=== PATIENT | male | born 1960 | race Caucasian/White ===

== ENCOUNTER 2020-03-10 17:26 | Outpatient (CLI) | payer MEDICARE, BC, SELFPAY ==
[2020-03-10 18:22] LABS: Hemoglobin 13.3 g/dL (14.0-18.0); Mean Corpuscular HGB Conc 35.9 g/dl (32-36); Mean Corpuscular Hemoglobin 30.7 pg (26-34); Mean Corpuscular Volume 85.5 fl (80-100); Mean Platelet Volume 9.9 fl (7.4-10.4); Platelet Count Result 117 k/mm3 (150-375); Red Blood Count 4.33 M/mm3 (4.6-6.20); Red Cell Distribution Width 12.6 % (11.5-14.5)
[2020-03-10 18:36] LABS: Alanine Aminotransferase 22 U/L (4-50); Albumin Level 4.2 g/dL (3.5-5.1); Alkaline Phosphatase 99 U/L (38-126); Aspartate Amino Transferase 27 U/L (17-59); Bilirubin,Total 0.5 mg/dL (0.2-1.3); Blood Urea Nitrogen 8 mg/dL (9-20); Calcium 8.6 mg/dL (8.4-10.2); Carbon Dioxide 33 mmol/L (22-30); Chloride 90 mmol/L (98-107); Cholesterol 164 mg/dL (0-200); Estimated Glomerular Filt Rate > 60; Glucose 322 mg/dL (75-110); HDL Direct 59 mg/dL; Phenytoin Dilantin 13 ug/mL (10-20); Potassium 5.2 mmol/L (3.4-5.0); Sodium 125 mmol/L (137-145); Triglycerides 85 mg/dL (<150)
[2020-03-10 18:39] LABS: Hemoglobin A1C 8.8 % (<5.7)
[2020-03-10 18:44] LABS: LDL Cholesterol Direct 79 mg/dL
[2020-03-10 19:24] LABS: Prostate Specific Antigen 0.8 ng/mL (< OR = 4.0)
== END 2020-03-10 17:27 | disposition home or self-care (01) ==
PROVIDERS: PCP Family Medicine; Visit Provider Family Medicine
DX: D64.9 Anemia, unspecified (principal); Z12.5 Encounter for screening for malignant neoplasm of prostate; G40.909 Epilepsy, unspecified, not intractable, without status epilepticus; E11.65 Type 2 diabetes mellitus with hyperglycemia
CPT/HCPCS: 36415; 80053; 80061; 80184; 80185; 83036; 84153; 85027; G0103

== ENCOUNTER 2020-04-20 11:50 | Outpatient (CLI) | payer MEDICARE, BC, SELFPAY ==
--- NOTE | ~2020-04-20 | MMUS_ITS ---
EXAMINATION: MM diagnostic mammo BI, US breast RT limited HISTORY: Palpable right breast lump TECHNIQUE: Additional 3-D tomosynthesis images of the right breast were performed and synthetic 2-D i mages were generated. CAD analysis was submitted and interpreted. High resolution right breast ultras ound was performed. COMPARISON: None BREAST PARENCHYMAL COMPOSITION: The breasts are heterogenously dense, which may obscure small masses FINDINGS: MAMMOGRAPHIC FINDINGS: There is bilateral symmetric gynecomastia. No suspicious masses, calcifications or architectural dist ortion to suggest malignancy. ULTRASOUND: Right breast ultrasound: There is normal heterogeneous echotexture in the subareolar location of the right breast, consistent with breast bud. IMPRESSION: 1. Bilateral symmetric gynecomastia. No evidence for malignancy. Recommend follow-up clinical managem ent for gynecomastia. BI-RADS CATEGORY 2 - BENIGN FINDINGS Reviewed, dictated and finalized at location A. IMPRESSION: 1. Bilateral symmetric gynecomastia. No evidence for malignancy. Recommend foll ow-up clinical management for gynecomastia. BI-RADS CATEGORY 2 - BENIGN FINDINGS
== END 2020-04-20 11:51 | disposition home or self-care (01) ==
LOC: ANHIMG 11:55
PROVIDERS: PCP Family Medicine; Visit Provider Family Medicine
DX: N63.10 Unspecified lump in the right breast, unspecified quadrant (principal); R92.2 Inconclusive mammogram
CPT/HCPCS: 76642; 77066

== ENCOUNTER 2020-04-27 14:42 | Outpatient (CLI) | payer MEDICARE, BC, SELFPAY ==
--- NOTE | ~2020-04-27 | CT_ITS ---
EXAMINATION: CT abdomen pelvis wo con DATE: 04/27/2020 15:11 INDICATION: Left inguinal lymphadenopathy TECHNIQUE: Computed tomography (CT) of the abdomen and pelvis was performed without intravenous contr ast. Automated exposure control and iterative reconstruction technique were employed. Exam dose: 198 .29 mGy-cm total exam DLP. COMPARISON: None. FINDINGS: The lung bases are clear. Normal heart size. No pericardial or pleural effusion. There are numerous faceted calcified gallstones. No gallbladder wall thickening or pericholecystic fluid or fat stranding. No bile duct or pancreatic duct dilatation. No hepatic, splenic, pancreatic, adrenal or renal solid space-occupying mass lesion is evident on thi s limited noncontrast examination. Exophytic 12 mm right renal cyst. 11 mm hyperdense exophytic left renal cyst. No urinary tract calculus or hydroureteronephrosis. There is abdominal aortic calcification; no aneurysm. No intraperitoneal or retroperitoneal or pelvic mass lesion or adenopathy or ascites is evident. There is a prominent amount of feces in the colon. No bowel obstruction or bowel wall thickening, pn eumatosis or intraperitoneal free air. Prostate enlargement. Transitional lumbosacral vertebra. No suspicious osteolytic or osteoblastic lesions are noted. IMPRESSION: No lymphadenopathy noted Prominent amount of feces in the colon, consistent with constipation; no bowel obstruction is evident Numerous faceted calcified gallstones Reviewed, dictated and finalized at Location A. Reviewed, dictated and finalized at location A.
== END 2020-04-27 14:43 | disposition home or self-care (01) ==
PROVIDERS: PCP Family Medicine; Visit Provider Family Medicine
DX: R59.0 Localized enlarged lymph nodes (principal)
CPT/HCPCS: 74176

== ENCOUNTER 2020-08-11 15:37 | Outpatient (CLI) | payer MEDICARE, BC, SELFPAY ==
--- NOTE | ~2020-08-11 | US_ITS ---
EXAMINATION: US venous doppler LE RT DATE: 08/11/2020 16:13 INDICATION: Right lower limb pain TECHNIQUE: Grayscale ultrasound images without and with compression and Doppler ultrasound images of the right lower extremity veins were obtained. COMPARISON: None. FINDINGS: The visualized portions of right common femoral vein, profunda (deep) femoral vein, femoral vein, pop liteal vein, peroneal trunk, posterior tibial veins, peroneal veins, gastrocnemius vein and greater s aphenous vein outflow are patent. IMPRESSION: 1. No deep venous thrombosis in the right lower limb. Reviewed, dictated and finalized at location H. E SPECIALIST
== END 2020-08-11 15:38 | disposition home or self-care (01) ==
PROVIDERS: PCP Family Medicine; Visit Provider Family Medicine
DX: M79.661 Pain in right lower leg (principal)
CPT/HCPCS: 93971

== ENCOUNTER 2020-09-08 15:18 | Outpatient (CLI) | payer MEDICARE, BC, SELFPAY ==
[2020-09-08 16:54] LABS: Hemoglobin A1C 8.1 % (<5.7)
[2020-09-08 17:04] LABS: Creatinine Urine 36.7 mg/dL
[2020-09-08 17:11] LABS: LDL Cholesterol Direct 79 mg/dL
[2020-09-08 17:25] LABS: Microalbumin Urine Random < 6.0 mg/L (0-16.7)
[2020-09-08 17:32] LABS: Alanine Aminotransferase 13 U/L (4-50); Anion Gap 7 mmol/L (8-16); Blood Urea Nitrogen 7 mg/dL (9-20); Calcium 8.8 mg/dL (8.4-10.2); Carbon Dioxide 34 mmol/L (22-30); Chloride 89 mmol/L (98-107); Cholesterol 163 mg/dL (0-200); Estimated Glomerular Filt Rate > 60; Glucose 221 mg/dL (75-110); HDL Direct 57 mg/dL; Phenytoin Dilantin 23 ug/mL (10-20); Potassium 4.4 mmol/L (3.4-5.0); Sodium 130 mmol/L (137-145); Triglycerides 105 mg/dL (<150)
== END 2020-09-08 15:19 | disposition home or self-care (01) ==
PROVIDERS: PCP Family Medicine; Visit Provider Family Medicine
DX: E11.65 Type 2 diabetes mellitus with hyperglycemia (principal); R56.9 Unspecified convulsions
CPT/HCPCS: 36415; 80048; 80061; 80184; 80185; 82043; 83036; 84460

== ENCOUNTER 2021-05-04 17:08 | Outpatient (CLI) | payer MEDICARE, SELFPAY ==
[2021-05-04 18:01] LABS: Hemoglobin A1C 7.3 % (<5.7)
[2021-05-04 18:02] LABS: Alanine Aminotransferase 21 U/L (4-50); Albumin Level 4.4 g/dL (3.5-5.1); Alkaline Phosphatase 110 U/L (38-126); Anion Gap 6 mmol/L (8-16); Aspartate Amino Transferase 38 U/L (17-59); Bilirubin,Total 0.8 mg/dL (0.2-1.3); Blood Urea Nitrogen 7 mg/dL (9-20); Calcium 8.9 mg/dL (8.4-10.2); Carbon Dioxide 30 mmol/L (22-30); Chloride 93 mmol/L (98-107); Cholesterol 151 mg/dL (0-200); Estimated Glomerular Filt Rate > 60; Glucose 136 mg/dL (65-110); HDL Direct 59 mg/dL; Phenytoin Dilantin 12 ug/mL (10-20); Potassium 4.6 mmol/L (3.4-5.0); Sodium 129 mmol/L (137-145); Triglycerides 96 mg/dL (<150)
[2021-05-04 18:02] LABS: Creatinine Urine 45.6 mg/dL; Total Protein Urine Random 12 mg/dL; Ur Ttl Prot Creatinine Ratio 0.26 mg/mg (0-0.20)
[2021-05-04 18:12] LABS: LDL Cholesterol Direct 62 mg/dL
[2021-05-04 18:44] LABS: Vitamin D 25 Hydroxy 57.9 ng/mL
[2021-05-05 12:28] LABS: Microalbumin Urine Random < 6.0 mg/L (0-16.7)
[2021-05-05 12:29] LABS: MALB Creatinine Ratio < 13.2 mg/g (0-30)
== END 2021-05-04 17:09 | disposition home or self-care (01) ==
PROVIDERS: PCP Family Medicine; Visit Provider Family Medicine
DX: E10.42 Type 1 diabetes mellitus with diabetic polyneuropathy (principal); E10.65 Type 1 diabetes mellitus with hyperglycemia; R56.1 Post traumatic seizures
CPT/HCPCS: 36415; 80053; 80061; 80184; 80185; 82043; 82306; 82570; 82607; 83036; 84156

== ENCOUNTER 2022-03-16 14:53 | Outpatient (CLI) | payer MEDICARE, SELFPAY ==
[2022-03-16 15:33] LABS: Basophils Percent Auto 0.7 % (0.2-1.2); Eosinophils Percent Auto 0.7 % (0-4.4); Hematocrit 32.2 % (42.0-52.0); Hemoglobin 11.8 g/dL (14.0-18.0); Immature Granulocyte Absolute 0.01 K/mm3 (0.00-0.031); Immature Granulocyte Percent A 0.3 % (0-0.5); Lymphocytes Absolute Auto 0.68 K/mm3 (0.9-3.2); Lymphocytes Percent Auto 22.4 % (18.3-44.2); Mean Corpuscular HGB Conc 36.6 g/dl (32-36); Mean Corpuscular Hemoglobin 32.4 pg (26-34); Mean Corpuscular Volume 88.5 fl (80-100); Mean Platelet Volume 9.2 fl (7.4-10.4); Monocytes Absolute Auto 0.3 K/mm3 (0.1-0.6); Monocytes Percent Auto 10.2 % (2.6-8.5); Neutrophils Percent Auto 65.7 % (45.5-73.1); Platelet Count Result 134 k/mm3 (150-375); Red Blood Count 3.64 M/mm3 (4.6-6.20); Red Cell Distribution Width 13.7 % (11.5-14.5)
[2022-03-16 15:44] LABS: Alanine Aminotransferase 19 U/L (6-50); Albumin Level 3.8 g/dL (3.5-5.1); Alkaline Phosphatase 79 U/L (38-126); Anion Gap 5 mmol/L (8-16); Aspartate Amino Transferase 30 U/L (17-59); Bilirubin,Total 0.4 mg/dL (0.2-1.3); Blood Urea Nitrogen 11 mg/dL (9-20); Carbon Dioxide 30 mmol/L (22-30); Chloride 96 mmol/L (98-107); Cholesterol 156 mg/dL (0-200); Estimated Glomerular Filt Rate > 60; Glucose 193 mg/dL (65-110); HDL Direct 62 mg/dL; Potassium 4.7 mmol/L (3.4-5.0); Sodium 131 mmol/L (137-145); Triglycerides 82 mg/dL (<150)
[2022-03-16 15:46] LABS: Alanine Aminotransferase 18 U/L (6-50); Albumin Level 3.9 g/dL (3.5-5.1); Alkaline Phosphatase 79 U/L (38-126); Anion Gap 5 mmol/L (8-16); Aspartate Amino Transferase 30 U/L (17-59); Bilirubin,Total 0.4 mg/dL (0.2-1.3); Blood Urea Nitrogen 10 mg/dL (9-20); Calcium 8.1 mg/dL (8.4-10.2); Carbon Dioxide 29 mmol/L (22-30); Chloride 97 mmol/L (98-107); Estimated Glomerular Filt Rate > 60; Glucose 192 mg/dL (65-110); Magnesium 1.8 mg/dL (1.6-2.3); Potassium 4.7 mmol/L (3.4-5.0); Sodium 131 mmol/L (137-145)
[2022-03-16 15:55] LABS: LDL Cholesterol Direct 60 mg/dL
[2022-03-16 16:29] LABS: Vitamin D 25 Hydroxy 49.4 ng/mL
== END 2022-03-16 14:54 | disposition home or self-care (01) ==
PROVIDERS: PCP Family Medicine
DX: R79.89 Other specified abnormal findings of blood chemistry (principal); E55.9 Vitamin D deficiency, unspecified; E87.1 Hypo-osmolality and hyponatremia; I10 Essential (primary) hypertension; E78.00 Pure hypercholesterolemia, unspecified
CPT/HCPCS: 36415; 80048; 80053; 80061; 80076; 82306; 83735; 85025

== ENCOUNTER 2022-06-20 14:54 | Outpatient (CLI) | payer MEDICARE, SELFPAY ==
--- NOTE | ~2022-06-20 | XR_ITS ---
EXAMINATION: XR chest 2V 06/20/2022 15:57 INDICATION: Cough PROCEDURE: 2 view chest COMPARISON: No prior studies for comparison. FINDINGS: The lungs are clear. The cardiomediastinal silhouette is within normal limits. There are no pleural effusions. There is no pneumothorax suspected. IMPRESSION: 1: NO ACUTE CARDIOPULMONARY DISEASE. Reviewed, dictated and finalized at location A.
--- NOTE | ~2022-06-20 | XR_ITS ---
XR shoulder RT min 2V 06/20/2022 15:57 Indication: Right shoulder pain. Arthritis. Procedure: 4 views right shoulder Comparison: No prior studies Findings: There is curvilinear ossification superior to the humeral head, likely calcific tendinopath y. No acute fracture or traumatic malalignment. There is anatomic alignment. No erosive changes. No f oreign bodies. Impression: 1: No acute abnormality of the right shoulder. 2: Probable calcific tendinopathy. Reviewed, dictated and finalized at location A. Impression: 1: No acute abnormality of the right shoulder. 2: Probable calcific tendinopathy.
[2022-06-20 15:46] LABS: Basophils Percent Auto 0.4 % (0.2-1.2); Hemoglobin 13.2 g/dL (14.0-18.0); Immature Granulocyte Absolute 0.01 K/mm3 (0.00-0.031); Immature Granulocyte Percent A 0.4 % (0-0.5); Lymphocytes Absolute Auto 0.69 K/mm3 (0.9-3.2); Lymphocytes Percent Auto 27.1 % (18.3-44.2); Mean Corpuscular HGB Conc 34.7 g/dl (32-36); Mean Corpuscular Hemoglobin 31.2 pg (26-34); Mean Corpuscular Volume 89.8 fl (80-100); Mean Platelet Volume 9.6 fl (7.4-10.4); Monocytes Absolute Auto 0.3 K/mm3 (0.1-0.6); Monocytes Percent Auto 10.2 % (2.6-8.5); Neutrophils Absolute Auto 1.6 K/mm3 (1.3-6.7); Neutrophils Percent Auto 61.9 % (45.5-73.1); Platelet Count Result 111 k/mm3 (150-375); Red Blood Count 4.23 M/mm3 (4.6-6.20); Red Cell Distribution Width 13.7 % (11.5-14.5); White Blood Count 2.6 K/mm3 (4.5-10.0)
[2022-06-20 16:04] LABS: Creatinine Urine 27.9 mg/dL; Total Protein Urine Random 9 mg/dL; Ur Ttl Prot Creatinine Ratio 0.32 mg/mg (0-0.20)
[2022-06-20 16:17] LABS: Alanine Aminotransferase 19 U/L (6-50); Albumin Level 4.7 g/dL (3.5-5.1); Alkaline Phosphatase 115 U/L (38-126); Anion Gap 7 mmol/L (8-16); Aspartate Amino Transferase 28 U/L (17-59); Bilirubin,Total 0.7 mg/dL (0.2-1.3); Blood Urea Nitrogen 13 mg/dL (9-20); Calcium 8.8 mg/dL (8.4-10.2); Carbon Dioxide 32 mmol/L (22-30); Chloride 94 mmol/L (98-107); Cholesterol 175 mg/dL (0-200); Estimated Glomerular Filt Rate > 60; Glucose 220 mg/dL (65-110); HDL Direct 80 mg/dL; Potassium 4.6 mmol/L (3.4-5.0); Sodium 133 mmol/L (137-145); Triglycerides 75 mg/dL (<150)
[2022-06-20 16:21] LABS: Anion Gap 7 mmol/L (8-16); Blood Urea Nitrogen 12 mg/dL (9-20); Calcium 8.8 mg/dL (8.4-10.2); Carbon Dioxide 30 mmol/L (22-30); Chloride 94 mmol/L (98-107); Estimated Glomerular Filt Rate > 60; Glucose 218 mg/dL (65-110); Potassium 4.5 mmol/L (3.4-5.0); Sodium 131 mmol/L (137-145)
[2022-06-20 16:27] LABS: Hemoglobin A1C 7.4 % (<5.7)
[2022-06-20 16:28] LABS: LDL Cholesterol Direct 75 mg/dL
[2022-06-20 16:43] LABS: Vitamin D 25 Hydroxy 30.9 ng/mL
== END 2022-06-20 14:55 | disposition home or self-care (01) ==
PROVIDERS: PCP Family Medicine; Referring Provider Anesthesiology; Visit Provider Family Medicine
DX: M19.011 Primary osteoarthritis, right shoulder (principal); R05.9 Cough, unspecified; E87.1 Hypo-osmolality and hyponatremia; E10.42 Type 1 diabetes mellitus with diabetic polyneuropathy; E10.65 Type 1 diabetes mellitus with hyperglycemia; I10 Essential (primary) hypertension; E55.9 Vitamin D deficiency, unspecified; E78.00 Pure hypercholesterolemia, unspecified; I42.2 Other hypertrophic cardiomyopathy; R60.0 Localized edema; R94.31 Abnormal electrocardiogram [ECG] [EKG]
CPT/HCPCS: 36415; 71046; 73030; 80048; 80053; 80061; 82306; 82570; 83036; 84156; 85025

== ENCOUNTER 2022-08-01 13:02 | Outpatient (CLI) | payer MEDICARE, SELFPAY ==
--- NOTE | ~2022-08-01 | MMUS_ITS ---
EXAMINATION: MM diagnostic mammo unilat LT, US breast BI complete HISTORY: Palpable left breast lump TECHNIQUE: Additional 3-D tomosynthesis images of the left breast were performed and synthetic 2-D im ages were generated. Comparison right MLO view performed. CAD analysis was submitted and interpreted. High resolution complete bilateral breast ultrasound was performed. COMPARISON: 04/20/2020 BREAST PARENCHYMAL COMPOSITION: The breasts are heterogeneously dense, which may obscure small masses FINDINGS: MAMMOGRAPHIC FINDINGS: The breasts are stable. No new masses, calcifications or architectural distortion are identified. The re is bilateral symmetric gynecomastia. ULTRASOUND: Complete bilateral US of all 4 quadrants of the breasts and retroareolar region was reviewed. There i s bilateral symmetric heterogeneous hypoechoic soft tissue in the subareolar location of both breasts , consistent with breast buds. No discrete solid or cystic masses are identified to suggest malignanc y. IMPRESSION: 1. No evidence for malignancy in either breast. Benign findings. Bilateral symmetric gynecomastia. 2. Recommend follow-up clinical management for gynecomastia. BI-RADS CATEGORY 2 - BENIGN FINDINGS Reviewed, dictated and finalized at location A. L DRIVER IMPRESSION: 1. No evidence for malignancy in either breast. Benign findings. Bilateral symm etric gynecomastia. 2. Recommend follow-up clinical management for gynecomastia. BI-RADS CATEGORY 2 - BENIGN FINDINGS
== END 2022-08-01 13:03 | disposition home or self-care (01) ==
PROVIDERS: PCP Family Medicine; Visit Provider Family Medicine
DX: N63.0 Unspecified lump in unspecified breast (principal); N62 Hypertrophy of breast
CPT/HCPCS: 76641; 77065

== ENCOUNTER 2023-04-06 14:41 | Outpatient (CLI) | payer MEDICARE, SELFPAY ==
--- NOTE | ~2023-04-06 | XR_ITS ---
EXAMINATION: XR_RIBSBI_CR Exam Date/Time: 04/06/2023 15:20 CDT HISTORY: LEFT LBP AFTER FALL ON TO BATHTUB, LEFT POST RIB PAIN Comparison: None available. RESULT: Lines, tubes, and devices: Partially visualized cervical fusion hardware. Lungs and pleura: Calcified left lower lung granuloma, otherwise clear. Cardiothymic silhouette: Arch calcification. Calcified hilar node. Other: No acute osseous or upper abdominal finding. Mild degenerative changes in the bilateral shoul ders. IMPRESSION: No acute cardiopulmonary process. No acute osseous finding in the ribs. Reviewed, dictated and finalized at location K.
--- NOTE | ~2023-04-06 | XR_ITS ---
XR lumbar spine 2-3V DATE: 04/06/2023 15:30 INDICATION: Left low back pain after fall onto bathtub. Radiculopathy. TECHNIQUE: AP, lateral, coned lateral lumbosacral views COMPARISON: 09/03/2009 lumbar spine FINDINGS: There is osteopenia. There is mild dextroscoliosis of the lumbar spine. Included lower thoracic and lumbar pedicles are intact. Transitional first sacral vertebra. Lumbar and lumbosacral spaces are well preserved. There is slight degenerative spurring of the lumbar spine. No fracture, bone destruction. No spondylolisthesis. The sacroiliac joints are intact. Multiple faceted calcified gallstones are noted. There is abdominal aortic calcification. IMPRESSION: Osteopenia Mild dextro scoliosis Transitional first sacral vertebra Cholelithiasis Reviewed, dictated and finalized at location L.
[2023-04-06 15:34] LABS: Basophils Percent Auto 0.7 % (0.2-1.2); Eosinophils Percent Auto 0.4 % (0-4.4); Hematocrit 32.8 % (42.0-52.0); Hemoglobin 11.6 g/dL (14.0-18.0); Lymphocytes Absolute Auto 0.73 K/mm3 (0.9-3.2); Lymphocytes Percent Auto 27.2 % (18.3-44.2); Mean Corpuscular HGB Conc 35.4 g/dl (32-36); Mean Corpuscular Volume 90.4 fl (80-100); Mean Platelet Volume 9.3 fl (7.4-10.4); Monocytes Absolute Auto 0.4 K/mm3 (0.1-0.6); Monocytes Percent Auto 14.6 % (2.6-8.5); Neutrophils Absolute Auto 1.5 K/mm3 (1.3-6.7); Neutrophils Percent Auto 57.1 % (45.5-73.1); Platelet Count Result 136 k/mm3 (150-375); Red Blood Count 3.63 M/mm3 (4.6-6.20); Red Cell Distribution Width 12.6 % (11.5-14.5); White Blood Count 2.7 K/mm3 (4.5-10.0)
[2023-04-06 15:42] LABS: Alanine Aminotransferase 25 U/L (6-50); Albumin Level 4.2 g/dL (3.5-5.1); Alkaline Phosphatase 94 U/L (38-126); Anion Gap 3 mmol/L (8-16); Aspartate Amino Transferase 42 U/L (17-59); Bilirubin,Total 0.6 mg/dL (0.2-1.3); Blood Urea Nitrogen 11 mg/dL (9-20); Calcium 8.5 mg/dL (8.4-10.2); Carbon Dioxide 36 mmol/L (22-30); Chloride 90 mmol/L (98-107); Cholesterol 161 mg/dL (0-200); Estimated Glomerular Filt Rate > 60; Glucose 173 mg/dL (65-110); HDL Direct 66 mg/dL; Magnesium 1.9 mg/dL (1.6-2.3); Potassium 4.5 mmol/L (3.4-5.0); Sodium 129 mmol/L (137-145); Triglycerides 85 mg/dL (<150)
[2023-04-06 15:53] LABS: LDL Cholesterol Direct 65 mg/dL
[2023-04-06 17:14] LABS: Vitamin D 25 Hydroxy 69.4 ng/mL
[2023-04-06 17:35] LABS: Creatinine Urine 68.5 mg/dL
[2023-04-06 18:59] LABS: MALB Creatinine Ratio < 8.8 mg/g (0-30); Microalbumin Urine Random < 6.0 mg/L (0-16.7)
[2023-04-10 14:10] LABS: Testosterone Free 28.4 pg/mL (35.0-155.0); Testosterone Total 430 ng/dL (250-1100)
== END 2023-04-06 14:42 | disposition home or self-care (01) ==
PROVIDERS: PCP Family Medicine; Referring Provider Anesthesiology; Visit Provider Family Medicine
DX: I42.2 Other hypertrophic cardiomyopathy (principal); I10 Essential (primary) hypertension; G62.9 Polyneuropathy, unspecified; E55.9 Vitamin D deficiency, unspecified; R79.89 Other specified abnormal findings of blood chemistry; E78.2 Mixed hyperlipidemia; Z13.220 Encounter for screening for lipoid disorders; E87.1 Hypo-osmolality and hyponatremia; M62.50 Muscle wasting and atrophy, not elsewhere classified, unspecified site; N52.9 Male erectile dysfunction, unspecified; E10.9 Type 1 diabetes mellitus without complications; R07.9 Chest pain, unspecified; M54.17 Radiculopathy, lumbosacral region; K80.20 Calculus of gallbladder without cholecystitis without obstruction; M85.88 Other specified disorders of bone density and structure, other site
CPT/HCPCS: 36415; 71110; 72100; 80048; 80061; 80076; 82043; 82306; 82553; 82607; 83735; 84402; 84403; 84443; 85025

== ENCOUNTER 2024-04-01 16:32 | Outpatient (CLI) | payer MEDICARE, SELFPAY ==
[2024-04-01 18:04] LABS: Hematocrit 34.4 % (42.0-52.0); Hemoglobin 12.5 g/dL (14.0-18.0); Mean Corpuscular HGB Conc 36.3 g/dl (32-36); Mean Corpuscular Hemoglobin 31.3 pg (26-34); Mean Corpuscular Volume 86.2 fl (80-100); Mean Platelet Volume 9.5 fl (7.4-10.4); Platelet Count Result 138 k/mm3 (150-375); Red Blood Count 3.99 M/mm3 (4.6-6.20); Red Cell Distribution Width 13.3 % (11.5-14.5); White Blood Count 4.3 K/mm3 (4.5-10.0)
[2024-04-01 18:13] LABS: Creatinine Urine 34.3 mg/dL
[2024-04-01 18:21] LABS: Alanine Aminotransferase 20 U/L (6-50); Albumin Level 4.3 g/dL (3.5-5.1); Alkaline Phosphatase 102 U/L (38-126); Anion Gap 11 mmol/L (4-12); Aspartate Amino Transferase 34 U/L (17-59); Bilirubin,Total 0.7 mg/dL (0.2-1.3); Blood Urea Nitrogen 10 mg/dL (9-20); Calcium 8.7 mg/dL (8.4-10.2); Carbon Dioxide 29 mmol/L (22-30); Chloride 89 mmol/L (98-107); Cholesterol 126 mg/dL (0-200); Estimated Glomerular Filt Rate > 60; Glucose 102 mg/dL (65-110); HDL Direct 58 mg/dL; Magnesium 1.7 mg/dL (1.6-2.3); Phenytoin Dilantin 9 ug/mL (10-20); Potassium 4.5 mmol/L (3.4-5.0); Sodium 129 mmol/L (137-145); Triglycerides 79 mg/dL (<150)
[2024-04-01 18:24] LABS: MALB Creatinine Ratio < 17.5 mg/g (0-30); Microalbumin Urine Random < 6.0 mg/L (0-16.7)
[2024-04-01 18:29] LABS: LDL Cholesterol Direct 58 mg/dL
[2024-04-02 04:06] LABS: Prostate Specific Antigen 1.1 ng/mL (< OR = 4.0)
== END 2024-04-01 16:33 | disposition home or self-care (01) ==
LOC: ANHLAB 16:40
PROVIDERS: PCP Family Medicine; Visit Provider Family Medicine
DX: Z12.5 Encounter for screening for malignant neoplasm of prostate (principal); I10 Essential (primary) hypertension; E10.9 Type 1 diabetes mellitus without complications; E87.1 Hypo-osmolality and hyponatremia; E78.2 Mixed hyperlipidemia; G62.9 Polyneuropathy, unspecified; E55.9 Vitamin D deficiency, unspecified; R79.89 Other specified abnormal findings of blood chemistry; R56.1 Post traumatic seizures; R25.2 Cramp and spasm; Z13.220 Encounter for screening for lipoid disorders
CPT/HCPCS: 36415; 80048; 80053; 80061; 80076; 80184; 80185; 82043; 82306; 82607; 83735; 84153; 85027; G0103

== ENCOUNTER 2024-04-01 16:42 | Outpatient (CLI) | payer MEDICARE, SELFPAY ==
[2024-04-01 19:04] LABS: Alanine Aminotransferase 21 U/L (6-50); Albumin Level 4.3 g/dL (3.5-5.1); Alkaline Phosphatase 101 U/L (38-126); Anion Gap 10 mmol/L (4-12); Aspartate Amino Transferase 35 U/L (17-59); Bilirubin,Total 0.7 mg/dL (0.2-1.3); Blood Urea Nitrogen 10 mg/dL (9-20); Calcium 8.7 mg/dL (8.4-10.2); Carbon Dioxide 27 mmol/L (22-30); Chloride 90 mmol/L (98-107); Estimated Glomerular Filt Rate > 60; Glucose 102 mg/dL (65-110); Potassium 4.6 mmol/L (3.4-5.0); Sodium 127 mmol/L (137-145)
== END 2024-04-01 16:43 | disposition home or self-care (01) ==
PROVIDERS: PCP Family Medicine
DX: I35.1 Nonrheumatic aortic (valve) insufficiency (principal); I10 Essential (primary) hypertension; D61.818 Other pancytopenia; E78.00 Pure hypercholesterolemia, unspecified; I42.2 Other hypertrophic cardiomyopathy; R60.0 Localized edema; R94.31 Abnormal electrocardiogram [ECG] [EKG]; Z82.49 Family history of ischemic heart disease and other diseases of the circulatory system
CPT/HCPCS: 36415; 80053

== ENCOUNTER 2024-08-23 14:40 | Outpatient (CLI) | payer MEDICARE, SELFPAY ==
--- NOTE | ~2024-08-23 | XR_ITS ---
XR finger 1st RT min 2V DATE: 08/23/2024 15:10 INDICATION: Effusion TECHNIQUE: 3 views of right first digit COMPARISON: None FINDINGS: No fracture or dislocation, periosteal reaction or bone destruction. Joint spaces are prese rved. No erosive changes. IMPRESSION: No significant abnormality Reviewed, dictated and finalized at location A. ER ASSEMBLER IMPRESSION: No significant abnormality
[2024-08-23 15:43] LABS: Basophils Percent Auto 0.3 % (0.2-1.2); Hematocrit 34.1 % (42.0-52.0); Hemoglobin 11.8 g/dL (14.0-18.0); Immature Granulocyte Absolute 0.01 K/mm3 (0.00-0.031); Immature Granulocyte Percent A 0.3 % (0-0.5); Lymphocytes Absolute Auto 0.72 K/mm3 (0.9-3.2); Lymphocytes Percent Auto 24.1 % (18.3-44.2); Mean Corpuscular HGB Conc 34.6 g/dl (32-36); Mean Corpuscular Hemoglobin 31.1 pg (26-34); Mean Platelet Volume 9.6 fl (7.4-10.4); Monocytes Absolute Auto 0.3 K/mm3 (0.1-0.6); Monocytes Percent Auto 11.4 % (2.6-8.5); Neutrophils Absolute Auto 1.9 K/mm3 (1.3-6.7); Neutrophils Percent Auto 63.9 % (45.5-73.1); Platelet Count Result 129 k/mm3 (150-375); Red Blood Count 3.79 M/mm3 (4.6-6.20)
[2024-08-23 15:57] LABS: Anion Gap 0 mmol/L (4-12); Blood Urea Nitrogen 13 mg/dL (9-20); Calcium 8.5 mg/dL (8.4-10.2); Carbon Dioxide 35 mmol/L (22-30); Chloride 97 mmol/L (98-107); Estimated Glomerular Filt Rate > 60; Glucose 205 mg/dL (65-110); Potassium 4.9 mmol/L (3.4-5.0); Sodium 132 mmol/L (137-145); Uric Acid 5.5 mg/dL (3.5-8.5)
[2024-08-23 16:34] LABS: Erythrocyte Sedimentation Rate 16 mm/hr (0-20)
== END 2024-08-23 14:41 | disposition home or self-care (01) ==
PROVIDERS: PCP Family Medicine; Visit Provider Family Medicine
DX: L03.011 Cellulitis of right finger (principal); M25.40 Effusion, unspecified joint; M10.9 Gout, unspecified
CPT/HCPCS: 36415; 73140; 80048; 84550; 85025; 85652

== ENCOUNTER 2025-01-28 14:34 | Outpatient (CLI) | payer MEDICARE, SELFPAY ==
--- OUTSIDE RECORDS SUMMARY | 2025-01-28 14:48 | XMS_ITS | Patient Health Record ---
Author Organization [facility] Address [address] [facility] [place] [address] Care Team Providers Care Assessment Services Manager Name Role Phone GREG HUIZAR, EPHRAIM Primary Care Provider Misty trejo Sarwat Perez Unavailable [phone] ALLERGIES Allergen (clinical drug ingredient) Drug/Non Drug Allergy documented on EMR Reaction Allergy Type Onset Date Status Penicillin Unknown Drug Allergy Active RESULTS Component Value Reference Range Notes Airwoot Results (Not yet reviewed by provider) Interpretation: Performing Lab:[id number] [facility], [address] [address] [facility] [address] Diamond Kumari MD Notes/Report: 4-ANPP: Fentanyl Negative. Acetyl fentanyl: Fentanyl Negative. Acetyl norfenta nyl: Fentanyl Negative. Acryl fentanyl: Fentanyl Negative. Carfentanil: Fentany l Negative. Para-fluorofentanyl: Fentanyl Negative. Codeine Quantification negative 50 ng/mL Morphine Quantification positive-70804.532 50 ng/mL Hydrocodone Quantification negative 50 ng/mL Norhydrocodone Quantification negative 50 ng/mL Hydromorphone Quantification positive-61.592 50 ng/mL Oxycodone Quantification negative 50 ng/mL Noroxycodone Quantification negative 50 ng/mL Oxymorphone Quantification negative 50 ng/mL Buprenorphine Quantification negative 5 ng/mL Norbuprenorphine Quantification negative 20 ng/mL Fentanyl Quantification negative 1 ng/mL Norfentanyl Quantification negative 8 ng/mL Methadone Quantification negative 100 ng/mL EDDP (Methadone metabolite) Quantification negative 100 ng/mL Tramadol Quantification negative 100 ng/mL F-gcccdjjbl-krgeclkx Quantification negative 100 n g/mL S-Svqwjrfdq-Spkktvou Quantification negative 100 n g/mL Tapentadol Quantification negative 50 ng/mL Meperidine Quantification negative 50 ng/mL Normeperidine Quantification negative 50 ng/mL Alpha-Hydroxyalprazolam Quantification negative 20 ng/mL 4-Chris-Yjontrneek Quantification negative 20 ng/m L Lorazepam Quantification negative 40 ng/mL Nordiazepam Quantification negative 40 ng/mL Temazepam Quantification negative 50 ng/mL Oxazepam Quantification negative 40 ng/mL Amphetamine Quantification negative 100 ng/mL Methylphenidate Quantification negative 50 ng/mL Ritalinic Acid Quantification negative 50 ng/mL Citalopram/Escitalopram Quantification negative 25 ng/mL N-Desmethylcitalopram Quantification negative 25 n g/mL Hydroxybupropion Quantification negative 50 ng/mL Duloxetine Quantification negative 25 ng/mL Fluoxetine Quantification negative 25 ng/mL NorFluoxetine Quantification negative 25 ng/mL Paroxetine Quantification negative 25 ng/mL Sertraline Quantification negative 10 ng/mL Trazodone Quantification negative 10 ng/mL Venlafaxine Quantification negative 100 ng/mL Desmethylvenlafaxine Quantification negative 100 n g/mL Aripipazole Quantification negative 5 ng/mL [id number]-3373 Quantification negative 15 ng/mL Clozapine Quantification negative 25 ng/mL N-Desmethylclozapine Quantification negative 25 ng /mL Haloperidol Quantification negative 5 ng/mL Reduced Haloperidol Quantification negative 5 ng/m L Olanzapine Quantification negative 25 ng/mL Quetiapine Quantification negative 25 ng/mL Norquetiapine Quantification negative 25 ng/mL Risperidone Quantification negative 10 ng/mL Hydroxyrisperidone Quantification negative 25 ng/m L Gabapentin Quantification negative 1000 ng/mL Pregabalin Quantification positive-3243.925 400 ng/mL Lamotrigine Quantification negative 50 ng/mL Ketamine Quantification negative 50 ng/mL Norketamine Quantification negative 50 ng/mL Naltrexone Quantification negative 10 ng/mL Naltrexol Quantification negative 10 ng/mL Naloxone Quantification negative 20 ng/mL cZolpidem Quantification negative 10 ng/mL Carisoprodol Quantification negative 100 ng/mL Meprobamate Quantification negative 100 ng/mL Pentobarbital Quantification negative 200 ng/mL Phenobarbital Quantification positive-90843.221 200 ng /mL Secobarbital Quantification negative 200 ng/mL Butalbital Quantification negative 200 ng/mL Amitriptyline Quantification negative 50 ng/mL Nortriptyline Quantification negative 50 ng/mL Imipramine Quantification negative 50 ng/mL Desipramine Quantification negative 50 ng/mL Cyclobenzaprine Quantification negative 50 ng/mL Dextromethorphan negative 50 ng/mL Levorphanol / Dextrorphan Quantification negative 50 ng/mL Phentermine Quantification negative 50 ng/mL Methamphetamine Quantification negative 100 ng/mL Cocaine metabolite Quantification negative 50 ng/m L cTHC (Marijuana metabolite) Quantification positive-> 1000 15 ng/mL MDMA Quantification negative 100 ng/mL 6-DM (Heroin metabolite) Quantification negative 10 ng/mL Phencyclidine Quantification negative 10 ng/mL 4-ANPP Quantification Fen Neg 2 ng/mL Acetyl fentanyl Quantification Fen Neg 2 ng/mL Acetyl norfentanyl Quantification Fen Neg 5 ng/mL Acryl fentanyl Quantification Fen Neg 1 ng/mL Carfentanil Quantification Fen Neg 2 ng/mL Para-fluorofentanyl Quantification Fen Neg 1 ng/m L 2-methyl AP-237 Quantification negative 10 ng/mL Brorphine Quantification negative 15 ng/mL Metonitazene Quantification negative 5 ng/mL 8-aminoclonazolam Quantification negative 10 ng/mL Etizolam Quantification negative 10 ng/mL Alpha-hydroxyetizolam Quantification negative 10 n g/mL Flualprazolam Quantification negative 10 ng/mL Flubromazolam Quantification negative 10 ng/mL ZFX802 metabolite Quantification negative 10 ng/mL YPL202 metabolite Quantification negative 10 ng/mL RCS4 metabolite Quantification negative 10 ng/mL XLR11/UR144 metabolite negative 10 ng/mL 5F-ADB-M7 negative 10 ng/mL XV-ALHGHMDT-O2 negative 10 ng/mL JHGT-WJROIYJB-Z7 negative 10 ng/mL Eutylone Quantification negative 10 ng/mL Methylone Quantification negative 3 ng/mL Xylazine Quantification negative 10 ng/mL 4-hydroxy Xylazine Quantification negative 10 ng/m L Mitragynine (Kratom alkaloid ) Quantification negative 1 ng/mL 1-AU-Pyqgxvmvgij (Kratom alk aloid) Quantification negative 1 ng/mL ETHANOL negative 20 mg/dL mg/dL ETHYL GLUCURONIDE SCREEN negative 500 ng/mL Ethyl Glucuronide Quantification negative 500 ng/m L Ethyl Sulfate Quantification negative 500 ng/mL CREATININE (CHEMICAL) normal-93.1 >20 mg/dL mg/dL OXIDANT normal-0 <200 ug/mL ug/mL PH normal-6.2 4.5 - 9.5 SPECIFIC GRAVITY normal-1.020 1.003 - 1.035 [facility] (Not yet reviewed by provider) Interpretation: Performing Lab:[id number] [facility], [address] [facility] [address] Diamond Kumari MD Notes/Report: Para-fluorofentanyl: Fentanyl Negative. 4-ANPP: Fentanyl Negative. Acetyl fent anyl: Fentanyl Negative. Acetyl norfentanyl: Fentanyl Negative. Acryl fentanyl: Fentanyl Negative. Carfentanil: Fentanyl Negative. Codeine Quantification negative 50 ng/mL Morphine Quantification positive-51804.201 50 ng/mL Hydrocodone Quantification negative 50 ng/mL Norhydrocodone Quantification negative 50 ng/mL Hydromorphone Quantification negative 50 ng/mL Oxycodone Quantification negative 50 ng/mL Noroxycodone Quantification negative 50 ng/mL Oxymorphone Quantification negative 50 ng/mL Buprenorphine Quantification negative 5 ng/mL Norbuprenorphine Quantification negative 20 ng/mL Fentanyl Quantification negative 1 ng/mL Norfentanyl Quantification negative 8 ng/mL Methadone Quantification negative 100 ng/mL EDDP (Methadone metabolite) Quantification negative 100 ng/mL Tramadol Quantification negative 100 ng/mL N-tzhhzcamw-ndoxjzpw Quantification negative 100 n g/mL I-Nkinsnako-Alzrepew Quantification negative 100 n g/mL Tapentadol Quantification negative 50 ng/mL Meperidine Quantification negative 50 ng/mL Normeperidine Quantification negative 50 ng/mL Alpha-Hydroxyalprazolam Quantification negative 20 ng/mL 4-Jonjb-Kjzvhdinik Quantification negative 20 ng/m L Lorazepam Quantification negative 40 ng/mL Nordiazepam Quantification negative 40 ng/mL Temazepam Quantification negative 50 ng/mL Oxazepam Quantification negative 40 ng/mL Amphetamine Quantification negative 100 ng/mL Methylphenidate Quantification negative 50 ng/mL Ritalinic Acid Quantification negative 50 ng/mL Citalopram/Escitalopram Quantification negative 25 ng/mL N-Desmethylcitalopram Quantification negative 25 n g/mL Hydroxybupropion Quantification negative 50 ng/mL Duloxetine Quantification negative 25 ng/mL Fluoxetine Quantification negative 25 ng/mL NorFluoxetine Quantification negative 25 ng/mL Paroxetine Quantification negative 25 ng/mL Sertraline Quantification negative 10 ng/mL Trazodone Quantification negative 10 ng/mL Venlafaxine Quantification negative 100 ng/mL Desmethylvenlafaxine Quantification negative 100 n g/mL Aripipazole Quantification negative 5 ng/mL [id number]-3373 Quantification negative 15 ng/mL Clozapine Quantification negative 25 ng/mL N-Desmethylclozapine Quantification negative 25 ng /mL Haloperidol Quantification negative 5 ng/mL Reduced Haloperidol Quantification negative 5 ng/m L Olanzapine Quantification negative 25 ng/mL Quetiapine Quantification negative 25 ng/mL Norquetiapine Quantification negative 25 ng/mL Risperidone Quantification negative 10 ng/mL Hydroxyrisperidone Quantification negative 25 ng/m L Gabapentin Quantification negative 1000 ng/mL Pregabalin Quantification positive-04672.904 400 ng/mL Lamotrigine Quantification negative 50 ng/mL Ketamine Quantification negative 50 ng/mL Norketamine Quantification negative 50 ng/mL Naltrexone Quantification negative 10 ng/mL Naltrexol Quantification negative 10 ng/mL Naloxone Quantification negative 20 ng/mL cZolpidem Quantification negative 10 ng/mL Carisoprodol Quantification negative 100 ng/mL Meprobamate Quantification negative 100 ng/mL Pentobarbital Quantification negative 200 ng/mL Phenobarbital Quantification positive-31841.551 200 ng /mL Secobarbital Quantification negative 200 ng/mL Butalbital Quantification negative 200 ng/mL Amitriptyline Quantification negative 50 ng/mL Nortriptyline Quantification negative 50 ng/mL Imipramine Quantification negative 50 ng/mL Desipramine Quantification negative 50 ng/mL Cyclobenzaprine Quantification positive-67.434 50 ng/m L Dextromethorphan negative 50 ng/mL Levorphanol / Dextrorphan Quantification negative 50 ng/mL Phentermine Quantification negative 50 ng/mL Methamphetamine Quantification negative 100 ng/mL Cocaine metabolite Quantification negative 50 ng/m L cTHC (Marijuana metabolite) Quantification positive-23 5.879 15 ng/mL MDMA Quantification negative 100 ng/mL 6-DM (Heroin metabolite) Quantification negative 10 ng/mL Phencyclidine Quantification negative 10 ng/mL 4-ANPP Quantification Fen Neg 2 ng/mL Acetyl fentanyl Quantification Fen Neg 2 ng/mL Acetyl norfentanyl Quantification Fen Neg 5 ng/mL Acryl fentanyl Quantification Fen Neg 1 ng/mL Carfentanil Quantification Fen Neg 2 ng/mL Para-fluorofentanyl Quantification Fen Neg 1 ng/m L 2-methyl AP-237 Quantification negative 10 ng/mL Brorphine Quantification negative 15 ng/mL Metonitazene Quantification negative 5 ng/mL 8-aminoclonazolam Quantification negative 10 ng/mL Etizolam Quantification negative 10 ng/mL Alpha-hydroxyetizolam Quantification negative 10 n g/mL Flualprazolam Quantification negative 10 ng/mL Flubromazolam Quantification negative 10 ng/mL EIJ577 metabolite Quantification negative 10 ng/mL NBB423 metabolite Quantification negative 10 ng/mL RCS4 metabolite Quantification negative 10 ng/mL XLR11/UR144 metabolite negative 10 ng/mL 5F-ADB-M7 negative 10 ng/mL LS-NAVKTGRY-Z9 negative 10 ng/mL DRYX-KHCLRIDG-H8 negative 10 ng/mL Eutylone Quantification negative 10 ng/mL Methylone Quantification negative 3 ng/mL Xylazine Quantification negative 10 ng/mL 4-hydroxy Xylazine Quantification negative 10 ng/m L Mitragynine (Kratom alkaloid ) Quantification negative 1 ng/mL 0-IO-Jyqbmohauwd (Kratom alk aloid) Quantification negative 1 ng/mL ETHANOL negative 20 mg/dL mg/dL ETHYL GLUCURONIDE SCREEN negative 500 ng/mL Ethyl Glucuronide Quantification negative 500 ng/m L Ethyl Sulfate Quantification negative 500 ng/mL CREATININE normal-20.3 >20 mg/dL mg/dL OXIDANT normal-0 <200 ug/mL ug/mL PH normal-7.2 4.5 - 9.5 SPECIFIC GRAVITY normal-1.005 1.003 - 1.035 Airwoot Results (Not yet reviewed by provider) Interpretation: Performing Lab:[id number] [facility], [address] [address] [address] Diamond Kumari MD Notes/Report: Acetyl fentanyl: Fentanyl Negative. Acetyl norfentanyl: Fentanyl Negative. Acr yl fentanyl: Fentanyl Negative. Carfentanil: Fentanyl Negative. Para-fluorofent anyl: Fentanyl Negative. Codeine Quantification negative 50 ng/mL Morphine Quantification positive-25839.995 50 ng/mL Hydrocodone Quantification negative 50 ng/mL Norhydrocodone Quantification negative 50 ng/mL Hydromorphone Quantification positive-50.039 50 ng/mL Oxycodone Quantification negative 50 ng/mL Noroxycodone Quantification negative 50 ng/mL Oxymorphone Quantification negative 50 ng/mL Fentanyl Quantification negative 1 ng/mL Norfentanyl Quantification negative 8 ng/mL Methadone Quantification negative 100 ng/mL EDDP (Methadone metabolite) Quantification negative 100 ng/mL Tramadol Quantification negative 100 ng/mL J-jhyrhebyy-rhozklla Quantification negative 100 n g/mL P-Qjzyugzqk-Ndxmubpq Quantification negative 100 n g/mL Alpha-Hydroxyalprazolam Quantification negative 20 ng/mL 9-Qbicn-Srlvvixddn Quantification negative 20 ng/m L Lorazepam Quantification negative 40 ng/mL Nordiazepam Quantification negative 40 ng/mL Temazepam Quantification negative 50 ng/mL Oxazepam Quantification negative 40 ng/mL Amphetamine Quantification negative 100 ng/mL Methamphetamine Quantification negative 100 ng/mL Cocaine metabolite Quantification negative 50 ng/m L cTHC (Marijuana metabolite) Quantification positive-47 1.320 15 ng/mL 6-DM (Heroin metabolite) Quantification negative 10 ng/mL Acetyl fentanyl Quantification Fen Neg 2 ng/mL Acetyl norfentanyl Quantification Fen Neg 5 ng/mL Acryl fentanyl Quantification Fen Neg 1 ng/mL Carfentanil Quantification Fen Neg 2 ng/mL Para-fluorofentanyl Quantification Fen Neg 1 ng/m L Mitragynine (Kratom alkaloid ) Quantification negative 1 ng/mL 1-FM-Ulhcuatbnnj (Kratom alk aloid) Quantification negative 1 ng/mL Ethyl Glucuronide Quantification negative 500 ng/m L Ethyl Sulfate Quantification negative 500 ng/mL Airwoot Results (Not yet reviewed by provider) Interpretation: Performing Lab:[id number] [facility], [address] [facility] [address] Diamond Kumari MD Notes/Report: Acetyl fentanyl: Fentanyl Negative. Acetyl norfentanyl: Fentanyl Negative. Acr yl fentanyl: Fentanyl Negative. Carfentanil: Fentanyl Negative. Para-fluorofent anyl: Fentanyl Negative. Codeine Quantification negative 50 ng/mL Morphine Quantification positive-90130.143 50 ng/mL Hydrocodone Quantification negative 50 ng/mL Norhydrocodone Quantification negative 50 ng/mL Hydromorphone Quantification negative 50 ng/mL Oxycodone Quantification negative 50 ng/mL Noroxycodone Quantification negative 50 ng/mL Oxymorphone Quantification negative 50 ng/mL Fentanyl Quantification negative 1 ng/mL Norfentanyl Quantification negative 8 ng/mL Methadone Quantification negative 100 ng/mL EDDP (Methadone metabolite) Quantification negative 100 ng/mL Tramadol Quantification negative 100 ng/mL S-vlpfumsgu-cfeyuoef Quantification negative 100 n g/mL J-Hxwszhoxu-Ybqcskac Quantification negative 100 n g/mL Alpha-Hydroxyalprazolam Quantification negative 20 ng/mL 5-Twqfg-Qzbxxljyoj Quantification negative 20 ng/m L Lorazepam Quantification negative 40 ng/mL Nordiazepam Quantification negative 40 ng/mL Temazepam Quantification negative 50 ng/mL Oxazepam Quantification negative 40 ng/mL Amphetamine Quantification negative 100 ng/mL Methamphetamine Quantification negative 100 ng/mL Cocaine metabolite Quantification negative 50 ng/m L cTHC (Marijuana metabolite) Quantification positive-56 3.229 15 ng/mL 6-DM (Heroin metabolite) Quantification negative 10 ng/mL Acetyl fentanyl Quantification Fen Neg 2 ng/mL Acetyl norfentanyl Quantification Fen Neg 5 ng/mL Acryl fentanyl Quantification Fen Neg 1 ng/mL Carfentanil Quantification Fen Neg 2 ng/mL Para-fluorofentanyl Quantification Fen Neg 1 ng/m L Mitragynine (Kratom alkaloid ) Quantification negative 1 ng/mL 1-DV-Ghddjwooiqf (Kratom alk aloid) Quantification negative 1 ng/mL Ethyl Glucuronide Quantification negative 500 ng/m L Ethyl Sulfate Quantification negative 500 ng/mL REASON FOR REFERRAL No Information MEDICATIONS Medication SIG (Take, Route, Frequency, Duration) Notes Start Date End Date Status Simvastatin 20 MG 1 tablet in the evening Orally Once a day for 30 day(s) Active Voltaren 1 % 2 grams on each knee Transdermal 3 times a day 05/09/2018 Active Ferrous Sulfate 325 (65 Fe) MG 1 tablet Orally Once a day for 30 day(s) Active Medrol 4 MG as directed Orally 01/26/2023 Active Lidocaine 5 % 1 application as needed Externally Three times a day for 30 days 03/31/2021 Active Flector 1.3 % 1 patch Externally Twice a day for 30 days 04/27/2023 Active Mometasone Furoate 0.1 % 1 application Externally Once a day Active Nystatin-Triamcinolone 725691-2.1 UNIT/GM 1 application Externally Twice a day Active Lidocaine HCl 3 % 1 application as needed Externally Twice a day for 30 days 03/04/2021 Active NovoLOG FlexPen 100 UNIT/ML Subcutaneous for 90 Active Vitamin D3 125 MCG (5000 UT) TAKE 1 CAPSULE BY MOUTH EVERY DAY Oral for 90 Active HumaLOG KwikPen 100 UNIT/ML as directed Subcutaneous Active Eszopiclone 3 MG 1 tablet immediately before bedtime Oral Once a day Active Lantus SoloStar 100 UNIT/ML Subcutaneous for 108 Active MS Contin 30 MG 1 tablet Orally ever y 8 hours for 30 days MAY FILL 01/15/25 01/02/2025 Active Phenytoin Sodium Extended 100 MG 1 capsule Oral every 12 hrs Active Cyclobenzaprine HCl 10 MG 1 tab as needed Orally BID for 30 days 01/14/2020 Active Omeprazole 20 MG 1 capsule 30 minutes before morning meal Oral Once a day Active Temazepam 15 MG 1 capsule at bedtime as needed Orally Once a day Active Basaglar KwikPen 100 UNIT/ML as directed Subcutaneous Active Narcan 4 MG/0.1ML 1 actuation in one nostril x1, Nasally 2-3 minutes as needed until the patient is responsive or EMS arrives Active Lidoderm 5 % 2 patch remove after 12 hours Externally Once a day for 30 days 04/27/2022 Active Movantik 25 MG 1 tablet in the morning Orally Once a day for 30 day(s) 06/29/2022 Active Metoprolol Succinate ER 100 MG 1 tablet Oral Once a day Active Lyrica 75 MG 1 capsule Orally every 8 hours for 30 days 11/12/2024 Active PHENobarbital 97.2 MG 1 tablet Oral Twic e a day Active Terbinafine HCl 250 MG TAKE 1 TABLET BY MOUTH EVERY DAY Oral for 30 Active SOCIAL HISTORY Tobacco Use: Social History Observation Description Date Details (start date - stop date) Current Smoker NA - NA Sex Assigned At : Social History Observation Description Sex Assigned At Unknown Tobacco Use/Smoking Question Answer Notes Are you a current smoker How often do you smoke cigarettes? some days, bu t not every day Alcohol Screen (Audit-C) Question Answer Notes Did you have a drink containing alcohol in the p ast year? 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 Postherpetic neuralgia (1067275) Problem Epilepsy, unspecified, intractable, without status epilepticus (G40.919) Active confirmed Problem Primary osteoarthritis, right shoulder (M19.011) Active confirmed Localized, primary osteoarthritis of the shoulder region (987273244) Problem Unspecified osteoarthritis, unspecified site (M19.90) Active confirmed Osteoarthritis (253888297) Problem Pain in left hip (M25.552) Active confirmed Pain of left hi p joint (finding) (191391214754840) Problem Pain in left knee (M25.562) Active confirmed Pain of left kn ee joint (finding) (232585992611278) Problem Spinal enthesopathy, site unspecified (M46.00) Active confirmed Spinal enthesopathy (77735676) Problem Spondylosis without myelopathy or radiculopathy, cervical region (M47.812) Active confirmed Cervical spondylosis without myelopathy (863672572) Problem Spondylosis without myelopathy or radiculopathy, cervicothoracic region (M47.813) Active confirmed Cervical spondylosis without myelopathy (898251736) Problem Spondylosis without myelopathy or radiculopathy, lumbar region (M47.816) Active confirmed Lumbosacral spondylosis without myelopathy (51424407) Problem Spinal stenosis, cervical region (M48.02) Active confirmed Spinal stenosis in cervical region (31904287) Problem Intervertebral disc disorders with radiculopathy, lumbar region (M51.16) Active confirmed Radiculopathy d ue to lumbar intervertebral disc disorder (046423985749720) Problem Other intervertebral disc degeneration, lumbosacral region (M51.37) Active confirmed Degeneration of lumbosacral intervertebral disc (25408837) Problem Other specified dorsopathies, cervical region (M53.82) Active confirmed Disorder of cervical spine (695430010) Problem Radiculopathy, cervical region (M54.12) Active confirmed Cervical radiculopathy (24274993) Problem Radiculopathy, cervicothoracic region (M54.13) Active confirmed Cervical radiculopathy (93261442) Problem Radiculopathy, lumbar region (M54.16) Active confirmed Lumbar radiculopathy (446481966) Problem Radiculopathy, lumbosacral region (M54.17) Active confirmed Lumbosacral radiculopathy (7227781) Problem Postlaminectomy syndrome, not elsewhere classified (M96.1) Active confirmed Post-lami nectomy syndrome (63795191) Problem Osseous stenosis of neural canal of lumbar region (M99.33) Active confirmed Spinal stenosis of lumbar region (52691035) Problem 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) Active confirmed Connectiv e tissue and disc stenosis of intervertebral foramina (217150317) Problem half-way (current) use of anticoagulants (Z79.01) Active confirmed Long-term curre nt use of anticoagulant (213521837) Problem half-way (current) use of opiate analgesic (Z79.891) Active confirmed High risk drug monitoring status (041866829) Problem Drug induced constipation (K59.03) Active confirmed Drug-induced constipation (11575620) Problem Myalgia, other site (M79.18) Active confirmed Muscle pain (61297073) VITAL SIGNS Heart Rate 65 /min 01/02/2025 Respiratory Rate 16 /min 01/02/2025 Blood pressure diastolic 88 mm Hg 01/02/2025 Height 66 in 01/02/2025 Blood pressure systolic 150 mm Hg 01/02/2025 Weight 125 lbs 01/02/2025 BMI 20.17 kg/m2 01/02/2025 Encounters Encounter Location Date Provider Diagnosis [facility] [address] [facility] [place] [address] 05/06/2024 Sarwat Stynowick Radiculopathy, cervical region M54.12 [facility] [address] [facility] [place] [address] 03/01/2024 Sarwat Stynowick Radiculopathy, lumbosacral region M54.17 [facility] [address] [facility] [place] [address] 12/16/2024 Sarwat Stynowick Radiculopathy, lumbosacral region M54.17 [facility] [address] [facility] [place] [address] 01/14/2025 Sarwat Stynowick Radiculopathy, lumbosacral region M54.17 [facility] [address] [facility] [place] [address] 12/13/2024 Sarwat Stynowick Radiculopathy, lumba r region M54.16 ; Radiculopathy, lumbosacral region M54.17 and 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 [facility] [address] [facility] [place] [address] 03/08/2024 Sarwat Stynowick Radiculopathy, cervical region M54.12 and Radiculopathy, cervicothoracic region M54.13 [facility] [address] [place] [address] 01/30/2024 Sarwat Stynowick Radiculopathy, lumbosacral region M54.17 ; Radiculopathy, lumbar region M54.16 ; Radiculopathy, cervical region M54.12 ; Postlaminectomy syndrome, not elsewhere classified M96.1 ; Spondylosis without myelopathy or radiculopathy, cervical 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 ; Intervertebral disc disorders with radiculopathy, lumbar region M51.16 ; Other intervertebral disc degeneration, lumbosacral region M51.37 ; Spinal stenosis, cervical region M48.02 ; 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 ; half-way (current) use of anticoagulants Z79.01 ; Primary osteoarthritis, right shoulder M19.011 ; Drug induced constipation K59.03 and Chest pain, unspecified R07.9 [facility] [address] [place] [phone] 02/28/2024 Sarwat Stynowick Radiculopathy, lumbosacral region M54.17 ; Radiculopathy, cervical region M54.12 ; Radiculopathy, lumbar region M54.16 ; Postlaminectomy syndrome, not elsewhere classified M96.1 ; Spondylosis without myelopathy or radiculopathy, cervical 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 ; Intervertebral disc disorders with radiculopathy, lumbar region M51.16 ; Other intervertebral disc degeneration, lumbosacral region M51.37 ; Spinal stenosis, cervical region M48.02 ; half-way (current) use of opiate analgesic Z79.891 ; 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 ; Primary osteoarthritis, right shoulder M19.011 ; Drug induced constipation K59.03 and Chest pain, unspecified R07.9 [facility] [address] [place] [phone] 05/23/2024 Sarwat Stynowick Radiculopathy, lumbosacral region M54.17 ; Radiculopathy, cervical region M54.12 ; Radiculopathy, lumbar region M54.16 ; Postlaminectomy syndrome, not elsewhere classified M96.1 ; Spondylosis without myelopathy or radiculopathy, cervical 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 ; Intervertebral disc disorders with radiculopathy, lumbar region M51.16 ; Other intervertebral disc degeneration, lumbosacral region M51.37 ; Spinal stenosis, cervical region M48.02 ; 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 ; half-way (current) use of anticoagulants Z79.01 ; Primary osteoarthritis, right shoulder M19.011 ; Drug induced constipation K59.03 and Chest pain, unspecified R07.9 [facility] [address] [place] [phone] 05/30/2024 Sarwat Stynowick Radiculopathy, lumbosacral region M54.17 ; Radiculopathy, cervical region M54.12 ; Radiculopathy, lumbar region M54.16 ; Postlaminectomy syndrome, not elsewhere classified M96.1 ; Spondylosis without myelopathy or radiculopathy, cervical 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 ; Intervertebral disc disorders with radiculopathy, lumbar region M51.16 ; Other intervertebral disc degeneration, lumbosacral region M51.37 ; Spinal stenosis, cervical region M48.02 ; 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 ; half-way (current) use of anticoagulants Z79.01 ; Primary osteoarthritis, right shoulder M19.011 ; Drug induced constipation K59.03 and Chest pain, unspecified R07.9 [facility] [address] [place] [phone] 07/02/2024 Sarwat Stynowick Radiculopathy, lumbosacral region M54.17 ; Radiculopathy, cervical region M54.12 ; Radiculopathy, lumbar region M54.16 ; Postlaminectomy syndrome, not elsewhere classified M96.1 ; Spondylosis without myelopathy or radiculopathy, cervical 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 ; Intervertebral disc disorders with radiculopathy, lumbar region M51.16 ; Other intervertebral disc degeneration, lumbosacral region M51.37 ; Spinal stenosis, cervical region M48.02 ; half-way (current) use of opiate analgesic Z79.891 ; 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 ; Primary osteoarthritis, right shoulder M19.011 ; Drug induced constipation K59.03 and Chest pain, unspecified R07.9 [facility] [address] [place] [phone] 07/30/2024 Sarwat Stlyleick Radiculopathy, lumbosacral region M54.17 ; Radiculopathy, cervical region M54.12 ; Radiculopathy, lumbar region M54.16 ; Postlaminectomy syndrome, not elsewhere classified M96.1 ; Spondylosis without myelopathy or radiculopathy, cervical 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 ; Intervertebral disc disorders with radiculopathy, lumbar region M51.16 ; Other intervertebral disc degeneration, lumbosacral region M51.37 ; Spinal stenosis, cervical region M48.02 ; 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 ; half-way (current) use of anticoagulants Z79.01 ; Primary osteoarthritis, right shoulder M19.011 ; Drug induced constipation K59.03 and Chest pain, unspecified R07.9 [facility] [address] [place] [phone] 08/28/2024 Sarwat Perez Radiculopathy, lumbosacral region M54.17 ; Radiculopathy, cervical region M54.12 ; Radiculopathy, lumbar region M54.16 ; Postlaminectomy syndrome, not elsewhere classified M96.1 ; Spondylosis without myelopathy or radiculopathy, cervical 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 ; Intervertebral disc disorders with radiculopathy, lumbar region M51.16 ; Other intervertebral disc degeneration, lumbosacral region M51.37 ; Spinal stenosis, cervical region M48.02 ; 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 ; half-way (current) use of anticoagulants Z79.01 ; Primary osteoarthritis, right shoulder M19.011 ; Drug induced constipation K59.03 and Chest pain, unspecified R07.9 [facility] [address] [place] [phone] 09/26/2024 Sarwat Stynowick Radiculopathy, lumbosacral region M54.17 ; Radiculopathy, cervical region M54.12 ; Radiculopathy, lumbar region M54.16 ; Postlaminectomy syndrome, not elsewhere classified M96.1 ; Spondylosis without myelopathy or radiculopathy, cervical 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 ; Intervertebral disc disorders with radiculopathy, lumbar region M51.16 ; Other intervertebral disc degeneration, lumbosacral region M51.37 ; Spinal stenosis, cervical region M48.02 ; half-way (current) use of opiate analgesic Z79.891 ; 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 ; Primary osteoarthritis, right shoulder M19.011 ; Drug induced constipation K59.03 and Chest pain, unspecified R07.9 [facility] [address] [place] [phone] 10/08/2024 Sarwat Stynowick Radiculopathy, lumbosacral region M54.17 ; Radiculopathy, cervical region M54.12 ; Radiculopathy, lumbar region M54.16 ; Postlaminectomy syndrome, not elsewhere classified M96.1 ; Spondylosis without myelopathy or radiculopathy, cervical 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 ; Intervertebral disc disorders with radiculopathy, lumbar region M51.16 ; Other intervertebral disc degeneration, lumbosacral region M51.37 ; Spinal stenosis, cervical region M48.02 ; half-way (current) use of opiate analgesic Z79.891 ; half-way (current) use of anticoagulants Z79.01 ; Primary osteoarthritis, right shoulder M19.011 ; Drug induced constipation K59.03 and Chest pain, unspecified R07.9 [facility] [address] [place] [phone] 11/12/2024 Sarwat Stynowick Radiculopathy, lumbosacral region M54.17 ; Radiculopathy, cervical region M54.12 ; Radiculopathy, lumbar region M54.16 ; Postlaminectomy syndrome, not elsewhere classified M96.1 ; Spondylosis without myelopathy or radiculopathy, cervical 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 ; Intervertebral disc disorders with radiculopathy, lumbar region M51.16 ; Other intervertebral disc degeneration, lumbosacral region M51.37 ; Spinal stenosis, cervical region M48.02 ; 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 ; half-way (current) use of anticoagulants Z79.01 ; Primary osteoarthritis, right shoulder M19.011 ; Drug induced constipation K59.03 and Chest pain, unspecified R07.9 [facility] [address] [place] [phone] 12/04/2024 Sarwat Stynowick Radiculopathy, lumbosacral region M54.17 ; Radiculopathy, cervical region M54.12 ; Radiculopathy, lumbar region M54.16 ; Postlaminectomy syndrome, not elsewhere classified M96.1 ; Spondylosis without myelopathy or radiculopathy, cervical 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 ; Intervertebral disc disorders with radiculopathy, lumbar region M51.16 ; Other intervertebral disc degeneration, lumbosacral region M51.37 ; Spinal stenosis, cervical region M48.02 ; 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 ; half-way (current) use of anticoagulants Z79.01 ; Primary osteoarthritis, right shoulder M19.011 ; Drug induced constipation K59.03 and Chest pain, unspecified R07.9 [facility] [address] [place] [phone] 03/28/2024 Sarwat Stynowick Radiculopathy, lumbosacral region M54.17 ; Radiculopathy, cervical region M54.12 ; Radiculopathy, lumbar region M54.16 ; Postlaminectomy syndrome, not elsewhere classified M96.1 ; Spondylosis without myelopathy or radiculopathy, cervical 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 ; Intervertebral disc disorders with radiculopathy, lumbar region M51.16 ; Other intervertebral disc degeneration, lumbosacral region M51.37 ; Spinal stenosis, cervical region M48.02 ; 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 ; half-way (current) use of anticoagulants Z79.01 ; Primary osteoarthritis, right shoulder M19.011 ; Drug induced constipation K59.03 and Chest pain, unspecified R07.9 [facility] [address] [place] [phone] 04/25/2024 Sarwat Stynowick Radiculopathy, lumbosacral region M54.17 ; Radiculopathy, cervical region M54.12 ; Radiculopathy, lumbar region M54.16 ; Postlaminectomy syndrome, not elsewhere classified M96.1 ; Spondylosis without myelopathy or radiculopathy, cervical 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 ; Intervertebral disc disorders with radiculopathy, lumbar region M51.16 ; Other intervertebral disc degeneration, lumbosacral region M51.37 ; Spinal stenosis, cervical region M48.02 ; half-way (current) use of opiate analgesic Z79.891 ; 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 ; Primary osteoarthritis, right shoulder M19.011 ; Drug induced constipation K59.03 and Chest pain, unspecified R07.9 [facility] [address] [place] [phone] 01/02/2025 Sarwat Stynowick Radiculopathy, lumbosacral region M54.17 ; Radiculopathy, cervical region M54.12 ; Radiculopathy, lumbar region M54.16 ; Postlaminectomy syndrome, not elsewhere classified M96.1 ; Spondylosis without myelopathy or radiculopathy, cervical 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 ; Intervertebral disc disorders with radiculopathy, lumbar region M51.16 ; Other intervertebral disc degeneration, lumbosacral region M51.37 ; Spinal stenosis, cervical region M48.02 ; half-way (current) use of opiate analgesic Z79.891 ; half-way (current) use of anticoagulants Z79.01 ; Primary osteoarthritis, right shoulder M19.011 ; Drug induced constipation K59.03 and Chest pain, unspecified R07.9 ASSESSMENTS Encounter Date Diagnosis Assessment Notes Treatment Notes Treatment Clinical Notes 01/30/2024 Radiculopathy, lumbosacral region (ICD-10 - M54.17) The side effects of opioid analgesics including sedation, constipation potentially resulting in bowel obstruction, respiratory depression, tolerance, addiction, hyperalgesia, withdrawal after abrupt discontinuation, immunosuppression and endocrine abnormalities such as hypocortisolism and hypogonadism resulting in sexual dysfunction which may become permanent were discussed and the patient expressed an understanding of the above. The patient was advised to avoid driving, climbing ladders and operating dangerous machinery after taking this medication. The patient was advised to avoid consuming alcohol, illicit drugs and sedative/hypnotic drugs in conjunction with this medication due to the risk of profound respiratory depression and . The patient was directed to utilize the lowest effective dose possible. The importance of safe storage and keeping opioid medications locked up at all times in order to prevent theft and unintended consumption by friends, relatives or anyone else was discussed with the patient at length. The patient agrees to fully comply with the above. The [place] and [place] PDMP were reviewed and were appropriate 01/30/2024 Radiculopathy, lumbar region (ICD-10 - M54.16) 02/28/2024 Radiculopathy, lumbosacral region (ICD-10 - M54.17) The side effects of opioid analgesics including sedation, constipation potentially resulting in bowel obstruction, respiratory depression, tolerance, addiction, hyperalgesia, withdrawal after abrupt discontinuation, immunosuppression and endocrine abnormalities such as hypocortisolism and hypogonadism resulting in sexual dysfunctio [id number]|2025-01-28 14:49:00|2025-01-28 14:48:00|XMS_ITS|FABIÁN REID|External Medical Summaries|[id number]|" Clinical Summary Created on: January 28, 2025 Laura Metcalf : 1960 Sex: Male Author Organization [facility] Address [address] [place] [address] Care Team Providers Care Assessment Services Manager Name Role Phone Sarwat Phillips MD Unavailable [phone] Ephraim Mcqueen MD Primary Care Provider [phone] Source Comments [facility],non-owned Affiliates and Associated Physician Practices is amultiple site organization consisting of ambulatory clinics and hospital sitesin [place], [place], [place] and [place]. This disclosure is being madepursuant to the Care Everywhere program and may not contain all information available regarding this patient. Last updated 18.[facility] Allergies Active Allergy Reactions Criticality Noted Date Comments Trichophyton Other Low 07/12/2016 Sinus problems. Penicillin G Sodium Low 01/07/2016 Other reaction(s): Other (See Comments) Infancy. Medications * Be aware that medications may not be up to date on this document. Alwaysverify current medications with the patient. diclofenac sodium (VOLTAREN) 1 % gel NEEDED. Active PHENobarbital (LUMINAL) 97.2 MG tablet Take 1 (one) tablet by mouth once daily Active temazepam (RESTORIL) 15 MG capsule Take 1 (one) capsule by mouth nightly as needed Active Heat Wraps (THERMACARE ARTHRITIS NECK) MISC Use every other day Active Docusate Calcium (STOOL SOFTENER PO) Take by mouth once daily Active naloxegol (Movantik) 25 MG tablet Take 1 (one) tablet by mouth daily before breakfast Active bisacodyl EC (DULCOLAX) 5 MG tablet Take 1 (one) tablet by mouth Active phenytoin ER (DILANTIN) 100 MG capsule Take 3 (three) capsules by mouth every other day Take 300 mg every other day, and 400 mg on the days in between Active Blood Glucose Monitoring Suppl (ACCU-CHEK GUIDE) W/DEVICE KIT Use 1 device as directed 1 kit 019 Active LYRICA 75 MG capsuleIndications:Low back pain without sciatica, unspecified back pain laterality, unspecified chronicity Take 1 (one) capsule by mouth 3 times daily 020 Active nystatin (MYCOSTATIN) 947911 UNIT/GM ointment Apply to affected area 2 times daily Active lidocaine (XYLOCAINE) 5 % ointment APPLY 1 APPLICATION NEEDED THREE TIMES A DAY EXTERNALLY FOR 30 DAYS 021 Active Lidocaine HCl 3 % APPLY EXTERNALLY 1 APPLICATION TWICE A DAY NEEDED. 021 Active vitamin D, ergocalciferol, (DRISDOL) 1.25 mg (50,000 UT) capsule TAKE 1 CAPSULE BY MOUTH ONCE WEEKLY 022 Active vitamin D, ergocalciferol, (Drisdol) 1.25 MG (62427 UT) capsuleIndications:Hypo vitaminosis D Take 1 (one) capsule by mouth every 7 days 12 capsule 023 Active Accu-Chek FastClix LancetsIndications:Type 1 diabetes mellitus with hyperglycemia (HCC) Use 6 times daily while awake 750 Each 11 025 Active aspirin EC (Ecotrin) 81 MG tablet 1 (one) tablet 023 Active Narcan 4 MG/0.1ML nasal spray 1 actuation in one nostril x1, Nasally 2-3 minutes as needed until the patient is responsive or EMS arrives Active blood glucose (Accu-Chek Guide) test stripIndications:Type 1 diabetes mellitus with hyperglycemia (HCC) Use 6 times daily while awake 750 strip 025 Active cyclobenzaprine (Flexeril) 10 MG tabletIndications:Low back pain without sciatica, unspecified back pain laterality, unspecified chronicity Take 1 (one) tablet by mouth 2 times daily as needed for Muscle Spasms 025 Active simvastatin (Zocor) 20 MG tabletIndications:Pure hypercholesterolemia Take 1 (one) tablet by mouth once daily 90 tablet 025 Active insulin glargine (Lantus/Semglee) 100 units/mL penIndications:Type 1 diabetes mellitus with hyperglycemia (HCC) Inject 14 (fourteen) Units subcutaneously at bedtime 15 mL 025 Active insulin lispro (HumaLOG KwikPen) 100 UNIT/ML penIndications:Type 1 diabetes mellitus with hyperglycemia (HCC) Inject 4 (four) Units to 8 (eight) Units subcutaneously 3 times daily with meals 15 Pen. 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 Type 1 diabetes mellitus with hyperglycemia 11/2017 Depression 04/20/2018 Seizure 04/20/2018 Edema 08/04/2016 Overview (08/04/2016): 08/03 Venous duplex: no DVT Abnormal EKG 07/12/2016 Overview (07/17/2018): 1999 EKG: RBBB 07/04 EKG: SR, PVCs, RSR in V1/V2, ST/T-wave abnormality, QTc 413; little change compared with 01/01 EKG Osteoporosis 06/23/2016 Essential hypertension, benign 01/07/2016 Hypertrophic cardiomyopathy 01/06/2016 Overview (01/25/2019): ~2006 echo: apical hypertrophic cardiomyopathy per pateint 01/01 echo: EF 55%, moderate-severe apical hypertrophy without gradient, mild LAE, mild AI, mild-moderate MR, RV 32, trivial pericardial effusion 01/02 echo: EF 60%, apical hypertrophy, mild CHAD, mild AI/TR/PI, mild-moderate MR, RVSP 33 01/02 Holter: SR at 67, range 51-88, occasional PVCs, rare PACs, flushing correlated SR at 71 with 1 PVC 01/03 echo: EF 55%, moderate apical LVH, apical lateral hyperechoic endocardium, grade 2 diastolic dysfunction, mild-moderate LAE, mild TR, RVSP 23 02/03 echo: EF 60-65%, marked apical LVH (24 mm), moderate LAE, trace AI/MR/PI, mild TR, RVSP 17 Pure hypercholesterolemia 01/06/2016 Overview (05/14/2020): 03/07 Cholesterol 164 HDL 59 LDL 79 triglyceride 85, AST 27 ALT 22 glucose 322 01/04 Cholesterol 161 HDL 55 01/03 Cholesterol 157 HDL 52 LDL 90 triglyceride 77, AST 25 ALT 18 03/04 Cholesterol 155 HDL 51 LDL 88 triglyceride 80, AST 25 ALT 18 07/03 Cholesterol 161 HDL 55 LDL 86 triglyceride 77, AST 19 ALT 68 12/22 Cholesterol 221 HDL 43 LDL 159 triglyceride 43 Diabetic retinopathy 11/29/2013 Low back pain 10/05/2012 Resolved Problems Problem Noted Date Diagnosed Date Resolved Date Type 1 diabetes mellitus with hyperglycemia 08/08/2017 04/20/2018 Abnormal EKG 01/07/2016 04/20/2018 Overview (07/11/2017): ~1999 EKG: RBBB 01/01 EKG: SR at 61, RSR' in V1, QRS 116 ms, prominent voltage, marked ST/TW abnormality especially inferiorly & anterolaterally 07/04 EKG: SR at 66, PVCs, RSR' in V1, QRS 120 ms, marked ST/TW abnormality especially inferiorly & anterolaterally Nonrheumatic aortic valve insufficiency 01/07/2016 01/25/2019 Non-rheumatic mitral regurgitation 01/07/2016 01/25/2019 Diabetes mellitus 01/06/2016 04/20/2018 Encounters Date Type Department Care Team Description 12/19/2024 Orders Only [facility] - Endocrinology [address] [place] [phone] Dimitri Green MD Type 1 diabetes mellitus with hyperglycemia (HCC) 12/05/2024 Telephone [facility] - Endocrinology [address] [place] [phone] Yessenia Michael RN Med Question 12/05/2024 Orders Only [facility] - Endocrinology [address] [place] [phone] Dimitri Green MD Essential hypertension, benign 12/04/2024 Orders Only [facility] - Endocrinology [address] [place] [phone] Dimitri Green MD 12/04/2024 Telephone [facility] - Endocrinology [address] [place] [phone] Yessenia Michael RN Medication Issue 12/03/2024 2:15 PM CDT - 12/03/2024 11:59 PM CDT Hospital Encounter [facility] [address] [place] [phone] Dimitri Green MD Discharge Disposition: Home or Self Care 12/03/2024 1:40 PM CDT Office Visit [facility] - Endocrinology [address] [facility] [facility], [place] [address] Dimitri Green MD Type 1 diabetes mellitus with hyperglycemia (Primary Dx); Seizure; Essential hypertension, benign; Pure hypercholesterolemia; Low back pain without sciatica, unspecified back pain laterality, unspecified chronicity 12/03/2024 Travel from Last 3 Months Immunizations Immunization Administration Dates Next Due INFLUENZA VACCINE, TRIV. (AF LURIA, FLUZONE TRIVALENT; 6MO+) (IIV3) 07/07/2010 INFLUENZA VACCINE, QUADR. (F LUZONE; FLULAVAL; FLUARIX; AFLURIA QUADRIVALENT; 6MO+), 0.5 ML (IIV4) 07/04/2019 Influenza Intradermal 06/22/2012 TDAP (7yrs+) 09/09/2014 Family History Medical History Relation Name Comments None Known Brother 1 None Known Brother 2 None Known Brother 3 Other - Anesthesia Father Laura None Known Maternal Grandfather None Known Maternal Grandmother Alzheimer's Disease Mother Arthritis - Osteo Mother None Known Other None Known Paternal Grandfather None Known Paternal Grandmother None Known Sister Alcohol abuse Neg Hx Asthma Neg Hx Dementia Neg Hx Depression Neg Hx Drug Abuse Neg Hx Glaucoma Neg Hx Gout Neg Hx Leukemia Neg Hx Migraine Neg Hx Multiple Sclerosis Neg Hx Other Neg Hx Thyroid Disease Neg Hx Relation Name Status Comments Brother 1 Alive no heart dz Brother 2 Alive no heart dz Brother 3 Alive HTN; no heart d z Father Laura CM; ICD; no CAD Maternal Grandfather Maternal Grandmother (Age 67) st lona at 67 Mother (Age 78) HTN/ strok e at 76 Other Paternal Grandfather Paternal Grandmother Sister Social History Tobacco Use Types Packs/Day Years Used Date Smoking Tobacco: Some Days Cigars Smokeless Tobacco: Never Tobacco Cessation:Ready to Q uit: Not Asked; Counseling Given: Not Answered Alcohol Use Standard Drinks/Week Comments No 0 (1 standard drink = 0.6 oz pur e alcohol) PHQ-2 Answer Date Recorded PHQ2 TOTAL SCORE 0 12/01/2022 Sex and Gender Information Value Date Recorded Sex Assigned at Not on file 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 Gender Identity Not on file Sexual Orientation Not on file Occupation Industry Job Start Date Job End Date disabled Not on file Not on file Not on file Last Filed Vital Signs Vital Sign Reading Time Taken Comments Blood Pressure 162/99 12/03/2024 1:26 PM CDT Pulse 66 12/03/2024 1:26 PM CDT Temperature 37.1 C (98.8 F) 07/04/2019 3:07 PM CDT Respiratory Rate 14 05/14/2020 2:07 PM CDT Oxygen Saturation 97% 12/03/2024 1:26 PM CDT Inhaled Oxygen Concentration - - Weight 63.9 kg (140 lb 12.8 oz) 12/03/2024 1:26 PM CDT Height 166.4 cm (5' 5.5 ) 12/03/2024 1:26 PM CDT Body Mass Index 23.07 12/03/2024 1:26 PM CDT Plan of Treatment Upcoming Encounters Date Type Department Care Team (Late st Contact Info) Description 06/03/2025 1:20 PM CDT Office Visit [facility] - Endocrinology [address] [place] [address], [place] [phone] Dimitri Green MD [address] [place] [address] [address] [facility] [place] [address] Health Maintenance Due Date Last Done Comments BONE DENSITY TESTING 1960 COLOGUARD (AGES 45-75) - COLON CA SCREENING [address] COLONOGRAPHY - COLON CA SCREENING 1960 FIT - COLON CA SCREENING 1960 FLEX SIG - COLON CA SCREENING 1960 HEPATITIS C SCREENING 10/28/1976 PNEUMOCOCCAL VACCINE 50+ (1 of 2 - PCV) 1977 ZOSTER VACCINE (1 of 2) 2008 Respiratory Syncytial Virus (RSV) Vaccine Pt: or over 60 yrs (1 - Risk 60-74 years 1-dose series) 2018 DIABETES-FOOT EXAM WITH MONOFILAMENT 07/04/2020 07/04/2019, 04/20/2018, 04/20/2018 AAA SCREENING 2023 COVID-19 VACCINE ( - season) 2024 DTAP/TDAP/TD VACCINES (2 - Td or Tdap) 09/09/2024 09/09/2014 DEPRESSION SCREENING 09/18/2024 12/01/2022 MEDICARE AWV CALENDAR YEAR 2024 DIABETES-HGB A1C 03/05/2025 12/03/2024, , 12/27/2018, Additional history exists INFLUENZA VACCINE (Season Ended) 2025 07/04/2019, 06/22/2012, 07/07/2010 DIABETES RETINOPATHY SCREENING 07/24/2025 01/28/2025, 07/24/2024, 07/26/2023 DIABETES - URINE PROTEIN SCREENING 12/03/2025 12/03/2024, 01/24/2019, 12/27/2018, Additional history exists DIABETES-SERUM CREATININE 12/03/20252024, 06/03/2018, 06/02/2018, Additional history exists COLONOSCOPY - COLON CA SCREENING 07/21/2027 07/21/2017 Colorectal Cancer Screening 07/21/2027 HEPATITIS B VACCINE Aged Out No longe r eligible based on patient's age to complete this topic HIB VACCINE Aged Out No longer eligi ble based on patient's age to complete this topic HPV VACCINE Aged Out No longer eligi ble based on patient's age to complete this topic MENINGOCOCCAL (Group B) VACCINE SHARED DECISION-MAKING Aged Out No longer eligible based on patient's age to complete this topic MENINGOCOCCAL GROUPS A/C/Y/W VACCINE Aged Out No longer eligible based on patient's age to complete this topic Procedures Procedure Name Priority Date/Time Associated Diagnosis Comments EYE EXAM Routine 01/28/2025 2:24 PM CDT MICROALB/CREAT RATIO URINE RANDOM PANEL Routine 12/03/2024 2:58 PM CDT Type 1 diabetes mellitus with hyperglycemia LIPID PROFILE Routine 12/03/2024 2:58 PM CDT Type 1 diabetes mellitus with hyperglycemia COMPREHENSIVE METABOLIC PANEL Routine 12/03/2024 2:58 PM CDT Type 1 diabetes mellitus with hyperglycemia CBC W/O DIFFERENTIAL Routine 12/03/2024 2:58 PM CDT Type 1 diabetes mellitus with hyperglycemia HEMOGLOBIN A1C - POINT OF CARE (AMB) U Routine 12/03/2024 1:43 PM CDT Type 1 diabetes mellitus with hyperglycemia from Last 3 Months Results * EYE EXAM (01/28/2025 2:24 PM CDT) Anatomical Region Laterality Modality Other Historical Provider MD SCANNING ONLY Final Res ult * MICROALB/CREAT RATIO URINE RANDOM PANEL (12/03/2024 2:58 PM CDT) Albumin Random Urine <5.0 Not Established ug/mL 12/03/2024 4:01 PM CDT [facility] Creatinine Urine 19.12 Not Established mg/dL 12/03/2024 4:01 PM CDT [facility] Urine Albumin/Creati nine Ratio <26 <30 mg/g 12/03/2024 4:01 PM T [facility] Albumin/Creati nine Ratio Urine See Comment <30 mg/g 12/03/2024 4:01 PM T [facility] Comment:Unable to calculate the Urine Albumin/Creatinine Ratio due to one or more analyte concentration(s) being outside the measuring limits of the instrument. Urine URINE SPECIMEN OBTAINED BY CLEAN CATCH PROCEDURE / Unknown Collection / Unknown 12/03/2024 2:58 PM CDT 12/03/2024 3:26 PM CDT Dimitri Green MD LAB - URINE CHEMISTRY ORDERABL ES Final Result [address] [address], [facility] [phone] * (ABNORMAL) CBC W/O DIFFERENTIAL (12/03/2024 2:58 PM CDT) WBC 4.0 4.0 - 10.7 x10E9/L 12/03/2024 3:38 PM CDT [facility] RBC Count 4.13(L) 4.30 - 5.80 x10E12/L 12/03/2024 3:38 PM [facility] Hemoglobin 12.3(L) 13.3 - 17.5 g/dL 12/03/2024 3:38 PM [facility] Hematocrit 35.0(L) 38.7 - 51.1 % 12/03/2024 3:38 PM [facility] MCV 84.7 80.0 - 98.0 fL 12/03/2024 3:38 PM [facility] MCH 29.8 26.7 - 33.6 pg 12/03/2024 3:38 PM [facility] MCHC 35.1 31.7 - 36.3 g/dL 12/03/2024 3:38 PM [facility] RDW-CV 13.2 11.3 - 14.8 % 12/03/2024 3:38 PM [facility] Platelet Count 123(L) 150 - 420 x10E9/L 12/03/2024 3:38 PM [facility] MPV 10.3 7.8 - 11.4 fL 12/03/2024 3:38 PM [facility] Blood BLOOD SPECIMEN / Unknown Lab Venipuncture / Unknown 12/03/2024 2:58 PM CDT 12/03/2024 3:33 PM CDT us Dimitri Green MD LAB - HEMATOLOGY ORDERABLES Fi nal Result Performing Organization Address [facility]/State/ZIP Co de Phone Number [address] [address], [facility] [phone] * (ABNORMAL) COMPREHENSIVE METABOLIC PANEL (12/03/2024 2:58 PM CDT) BUN 13 7 - 26 mg/dL 12/03/2024 4:01 PM [facility] Creatinine 0.66(L) 0.71 - 1.16 mg/dL 12/03/2024 4:01 PM [facility] Sodium 135(L) 136 - 145 mmol/L 12/03/2024 4:01 PM [facility] Potassium 5.3(H) 3.5 - 4.5 mmol/L 12/03/2024 4:01 PM [facility] Chloride 98 98 - 107 mmol/L 12/03/2024 4:01 PM [facility] CO2 32(H) 22 - 29 mmol/L 12/03/2024 4:01 PM [facility] Glucose 205(H) 70 - 99 mg/dL 12/03/2024 4:01 PM [facility] Calcium 8.9 8.4 - 10.2 mg/dL 12/03/2024 4:01 PM [facility] Protein Total 6.6 6.0 - 8.3 g/dL 12/03/2024 4:01 PM [facility] Albumin 3.8 3.4 - 5.0 g/dL 12/03/2024 4:01 PM [facility] Bilirubin Total 0.5 0.2 - 1.2 mg/dL 12/03/2024 4:01 PM [facility] Alkaline Phosphatase 132 40 - 150 U/L 12/03/2024 4:01 PM [facility] ALT 32 5 - 55 U/L 12/03/2024 4:01 PM [facility] AST 55(H) 5 - 34 U/L 12/03/2024 4:01 PM [facility] Anion Gap 5(L) 6 - 16 12/03/2024 4:01 PM [facility] BUN/Creatinine Ratio 20 7 - 23 12/03/2024 4:01 PM [facility] Osmolality Calculated 286 275 - 295 mOsm/kg 12/03/2024 4:01 PM [facility] Albumin/Globulin Ratio 1.4 1.1 - 2.3 12/03/2024 4:01 PM [facility] eGFR by CKD-EPI >90 >=90 mL/min/1.7 3 m2 12/03/2024 4:01 PM [facility] Blood BLOOD SPECIMEN / Unknown Lab Venipuncture / Unknown 12/03/2024 2:58 PM CDT 12/03/2024 3:33 PM T Dimitri Green MD LAB - CHEMISTRY ORDERABLES Fin al Result Performing Organization Address [facility] Co de Phone Number [address] [address], [facility] [phone] * LIPID PROFILE (12/03/2024 2:58 PM CDT) Cholesterol Total 137 <200 mg/dL 12/03/2024 4:01 PM CDT [facility] HDL 57 >40 mg/dL 12/03/2024 4:01 PM CDT [facility] Comment: ATP III Classification of HDL Cholesterol: <40 mg/dL: Considered a major risk factor. >60 mg/dL: Considered a negative risk factor. LDL Calculated 66 <100 mg/dL 12/03/2024 4:01 PM CDT [facility] Comment: ATP III Classification of LDL Cholesterol: <100 mg/dL: Optimal 100 - 129 mg/dL: Near Optimal/Above Optimal 130 - 159 mg/dL: Borderline High 160 - 189 mg/dL: High >190 mg/dL: Very High Triglycerides 71 <150 mg/dL 12/03/2024 4:01 PM CDT [facility] Comment: ATP III Classification of Triglycerides: <150 mg/dL: Normal 150 - 199 mg/dL: Borderline High 200 - 400 mg/dL: High >500 mg/dL: Very High Blood BLOOD SPECIMEN / Unknown Lab Venipuncture / Unknown 12/03/2024 2:58 PM CDT 12/03/2024 3:33 PM CDT us Dimitri Green MD LAB - CHEMISTRY ORDERABLES Fin al Result Performing Organization Address City/[facility]/ZIP Co de Phone Number [facility] [address] [place] [address], [place] [phone] * HEMOGLOBIN A1C - POINT OF CARE (AMB) [facility] (12/03/2024 1:43 PM CDT) Hemoglobin A1c POCT 8.2 % [address] BLOOD SPECIMEN / Unknown 12/03/2024 1:43 PM CDT us Dimitri Green MD LAB - POINT OF CARE ORDERABLES Final Result CRISTY Argueta5 [facility] [address] [facility] [place] [address], [facility] [phone] from Last 3 Months Insurance ANTHEM Advance Directives * Full Code (Latest Code Status on File) Date Activated Date Inactivated Comments 05/28/2018 6:26 PM 06/03/2018 6:32 PM Care Teams Assessment Services Manager Relationship Specialty Start Date End Date Ephraim Mcqueen MD [address] [place] [id number] PCP - General 06/03/22 [place] [id number] [address] Orthopedic Surgery 03/01/18 "
--- OUTSIDE RECORDS SUMMARY | 2025-01-28 14:48 | XMS_ITS ---
Author Organization [facility] Address [address] [facility] [place] [address] Care Team Providers Care Shaper Machine Hand Name Role Phone GREG HUIZAR, EPHRAIM Primary Care Provider Sarwat King [phone] REASON FOR VISIT refill MEDICATIONS Medication SIG (Take, Route, Frequency, Duration) Notes Start Date End Date Status Cyclobenzaprine HCl 10 MG 1 tab as neede d Orally BID for 30 days 01/14/2020 Active Encounters Encounter Location Date Provider Diagnosis [facility] [address] [place] [phone] 01/14/2025 Sarwat Perez Radiculopathy, lumbosacral region M54.17 ASSESSMENTS Encounter Date Diagnosis Assessment Notes Treatment Notes Treatment Clinical Notes 01/14/2025 Radiculopathy, lumbosacral region (ICD-10 - M54.17) PLAN OF TREATMENT Medication Medication Name Sig Start Date Stop Date Notes Cyclobenzaprine HCl 10 MG 1 tab as neede d Orally BID for 30 days 01/14/2020 Next Appt Details Provider Name:Sarwat lopez, 02/12/2025 12:45:00 PM, [address] [place], [address],
--- OUTSIDE RECORDS SUMMARY | 2025-01-28 14:49 | XMS_ITS | Encounter Summary ---
Author Organization [facility] Address [address] [place] [address] Care Team Providers Care Outdoor Landscape Architect Name Role Phone Anmol Gomez MD Primary Care Provider [phone] Sarwat Phillips MD Unavailable [phone] Se Mcqueen MD Primary Care Provider [phone] Anmol Gomez MD Primary Care Provider [phone] Se Mcqueen MD Primary Care Provider [phone] Encounter Details Date Type Department Care Team (Late st Contact Info) Description 12/27/2019 Telephone [facility] [address] [place] [address] Dimitri Green MD [facility] [place] [address] Social History Tobacco Use Types Packs/Day Years Used Date Smoking Tobacco: Some Days Cigars Smokeless Tobacco: Never Alcohol Use Standard Drinks/Week Comments No 0 (1 standard drink = 0.6 oz pur e alcohol) Sex and Gender Information Value Date Recorded Sex Assigned at Not on file 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 Answer Date of Assessment Author No 05/29/2018 4:15 PM Talon Fuentes RN * Is person blind or have serious difficulty seeing? Answer Date of Assessment Author No 05/29/2018 4:15 PM CDT Talon Norman RN * Does person have serious difficulty walking/climbing stairs? Answer Date of Assessment Author No 05/29/2018 4:15 PM CDT Talon Norman RN * Does person have difficulty dressing/bathing? Answer Date of Assessment Author No 05/29/2018 4:15 PM CDT Talon Norman RN * Does person have difficulty doing errands alone? Answer Date of Assessment Author No 05/29/2018 4:15 PM CDT Talon Norman RN documented as of this encounter Mental Status * Does person have difficulty concentrating/remembering/making decisions? Answer Entry Date Author No 05/29/2018 4:15 PM CDT Talon Norman RN documented in this encounter Miscellaneous Notes * Telephone Encounter - Tamra Mukherjee - 12/27/2019 2:04 PM CDT Current Provider name: Dr. Dimitri Green Reason for call: Mr. Johnny Metcalf need [facility] [employer] [facility] prescription refills for his flex pens. Pleas reach out to PT before refilling meds. He wants to be dure he gets right dosage. Patient Call Back number: [phone] documented in this encounter Plan of Treatment Upcoming Encounters Date Type Department Care Team (Late st Contact Info) Description 06/03/2025 1:20 PM CDT Office Visit [facility] - Endocrinology [address] [place] [address], [place] [address] Dimitri Green MD [address] [place] [address] [place] [address] documented as of this encounter Visit Diagnoses Not on filedocumented in this encounter Care Teams Outdoor Landscape Architect Relationship Specialty Start Date End Date Anmol Gomez MD [address] [place] [address] PCP - General Family Medicine 10/02/15 05/27/21 Se Mcqueen MD [address] [place] [phone] PCP - General Family Medicine 05/28/21 05/28/21 Anmol Gomez MD [address] [place] [address] PCP - General 05/31/21 06/02/22 Se Mcqueen MD [address] [place] [phone] PCP - General 06/03/22 [place] [address] [address] Orthopedic Surgery 03/01/18 documented as of this encounter
--- OUTSIDE RECORDS SUMMARY | 2025-01-28 14:49 | XMS_ITS ---
Author Organization [facility] Address [address] [place] [address] [place] [id number] Care Team Providers Care Compensation Coordinator Name Role Phone GREG HUIZAR, EPHRAIM Primary Care Provider Sarwat King Unavailable [phone] ALLERGIES Allergen (clinical drug ingredient) Drug/Non Drug Allergy documented on EMR Reaction Allergy Type Onset Date Status Penicillin Unknown Drug Allergy Active REASON FOR VISIT follow up, Right > left neck pain, Right = Left upper extremity pain, Left > Right low back pain MEDICATIONS Medication SIG (Take, Route, Frequency, Duration) Notes Start Date End Date Status MS Contin 30 MG 1 tablet Orally ever y 8 hours for 30 days MAY FILL 01/15/25 01/02/2025 Active Cyclobenzaprine HCl 10 MG 1 tab as needed Orally BID for 30 days 01/14/2020 Active Lidoderm 5 % 2 patch remove after 12 hours Externally Once a day for 30 days 04/27/2022 Active Lyrica 75 MG 1 capsule Orally every 8 hours for 30 days 11/12/2024 Active Terbinafine HCl 250 MG TAKE 1 TABLET BY MOUTH EVERY DAY Oral for 30 Active Movantik 25 MG 1 tablet in the morning Orally Once a day for 30 day(s) 06/29/2022 Active Vitamin D3 125 MCG (5000 UT) TAKE 1 CAPSULE BY MOUTH EVERY DAY Oral for 90 Active HumaLOG KwikPen 100 UNIT/ML as directed Subcutaneous Active Eszopiclone 3 MG 1 tablet immediately before bedtime Oral Once a day Active Lantus SoloStar 100 UNIT/ML Subcutaneous for 108 Active Medrol 4 MG as directed Orally 01/26/2023 Active Lidocaine 5 % 1 application as needed Externally Three times a day for 30 days 03/31/2021 Active Flector 1.3 % 1 patch Externally Twice a day for 30 days 04/27/2023 Active Lidocaine HCl 3 % 1 application as needed Externally Twice a day for 30 days 03/04/2021 Active NovoLOG FlexPen 100 UNIT/ML Subcutaneous for 90 Active Mometasone Furoate 0.1 % 1 application Externally Once a day Active Nystatin-Triamcinolone 107467-2.1 UNIT/GM 1 application Externally Twice a day Active Simvastatin 20 MG 1 tablet in the evening Orally Once a day for 30 day(s) Active Voltaren 1 % 2 grams on each knee Transdermal 3 times a day 05/09/2018 Active Ferrous Sulfate 325 (65 Fe) MG 1 tablet Orally Once a day for 30 day(s) Active Phenytoin Sodium Extended 100 MG 1 capsule Oral every 12 hrs Active Omeprazole 20 MG 1 capsule 30 minutes before morning meal Oral Once a day Active Temazepam 15 MG 1 capsule at bedtime as needed Orally Once a day Active Basaglar KwikPen 100 UNIT/ML as directed Subcutaneous Active Metoprolol Succinate ER 100 MG 1 tablet Oral Once a day Active Narcan 4 MG/0.1ML 1 actuation in one nostril x1, Nasally 2-3 minutes as needed until the patient is responsive or EMS arrives Active PHENobarbital 97.2 MG 1 tablet Oral Twic e a day Active SOCIAL HISTORY Tobacco Use: Social History Observation Description Date Details (start date - stop date) Current Smoker NA - NA Sex Assigned At : Social History Observation Description Sex Assigned At Unknown Tobacco Use/Smoking Question Answer Notes Are you a current smoker How often do you smoke cigarettes? some days, bu t not every day VITAL SIGNS Blood pressure systolic 150 mm Hg 01/03/20 25 Blood pressure diastolic 88 mm Hg 025 Heart Rate 65 /min 01/02/2025 Respiratory Rate 16 /min 01/02/2025 Height 66 in 01/02/2025 Weight 125 lbs 01/02/2025 BMI 20.17 kg/m2 01/02/2025 Encounters Encounter Location Date Provider Diagnosis [facility] [address] [facility] [place] [address] 01/02/2025 Sarwat Perez Radiculopathy, lumbosacral region M54.17 ; Radiculopathy, cervical region M54.12 ; Radiculopathy, lumbar region M54.16 ; Postlaminectomy syndrome, not elsewhere classified M96.1 ; Spondylosis without myelopathy or radiculopathy, cervical 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 ; Intervertebral disc disorders with radiculopathy, lumbar region M51.16 ; Other intervertebral disc degeneration, lumbosacral region M51.37 ; Spinal stenosis, cervical region M48.02 ; terminal carman (current) use of opiate analgesic Z79.891 ; terminal carman (current) use of anticoagulants Z79.01 ; Primary osteoarthritis, right shoulder M19.011 ; Drug induced constipation K59.03 and Chest pain, unspecified R07.9 ASSESSMENTS Encounter Date Diagnosis Assessment Notes Treatment Notes Treatment Clinical Notes 01/02/2025 Radiculopathy, lumbosacral region (ICD-10 - M54.17) The [...] to fully comply with the above. [place] and were appropriate 01/02/2025 Radiculopathy, cervical region (ICD-10 - M54.12) Schedule a cervical epidural steroid injection at C7-T1. The risks of this procedure including pain, bleeding, infection, spinal headache, persistent spinal fluid leak, epidural hematoma, nerve damage, spinal cord injury, paralysis, total spinal anesthesia resulting in cardiopulmonary arrest/, respiratory distress requiring intubation, insomnia, hyperglycemia, hair loss, muscle atrophy, skin depigmentation, weight gain, fluid retention, adrenal suppression, immunosuppression, osteoporosis resulting in fractures, avascular necrosis of the hip, cataracts, bleeding gastric ulcer, worsening pain and failure to relieve pain were discussed and the patient is agreeable to proceeding at this time. 01/02/2025 Radiculopathy, lumbar region (ICD-10 - M54.16) 01/02/2025 Postlaminectomy syndrome, not elsewhere classified (ICD-10 - M96.1) 01/02/2025 Spondylosis without myelopathy or radiculopathy, cervical region (ICD-10 - M47.812) 01/02/2025 Intervertebral disc disorders with radiculopathy, lumbar region (ICD-10 - M51.16) 01/02/2025 Other intervertebral disc degeneration, lumbosacral region (ICD-10 - M51.37) 01/02/2025 Spinal stenosis, cervical region (ICD-10 - M48.02) 01/02/2025 group home (current) use of opiate analgesic (ICD-10 - Z79.891) 01/02/2025 terminal carman (current) use of anticoagulants (ICD-10 - Z79.01) The patient was instructed to discontinue aspirin for 6 days prior to the procedure. I made the patient aware that they will be at an increased risk for a thromboembolic event during this time and they are willing to accept this risk. The patient was instructed to notify their primary care physician and/or marine electronics technician to obtain clearance prior to discontinuing this medication. 01/02/2025 Primary osteoarthritis, right shoulder (ICD-10 - M19.011) 01/02/2025 Drug induced constipation (ICD-10 - K59.03) 01/02/2025 Chest pain, unspecified (ICD-10 - R07.9) 01/02/2025 Other The above-named patient was evaluated in conjunction with Dr. Perez. I have discussed and reviewed all of the pertinent history, physical examination findings and diagnostic imaging results with him. As a result of our discussion, Dr. Perez has determined the above assessment and directed the treatment plan. This note was dictated using voice recognition software and therefore inadvertent errors may have occurred. This note was dictated by MARC Vidales. Total Time Spent with Patient and Medical Decision Makin minutes PLAN OF TREATMENT Medication Medication Name Sig Start Date Stop Date Notes MS Contin 30 MG 1 tablet Orally ever y 8 hours for 30 days 01/02/2025 MAY FILL 01/15/25 Treatment Notes Assessment Notes Radiculopathy, lumbosacral region The si de effects of opioid analgesics including sedation, constipation [...] to fully comply with the above. [place] were reviewed and were appropriate Radiculopathy, cervical region Schedule a cervical epidural steroid injection at C7-T1. The risks of this procedure including pain, bleeding, infection, spinal headache, persistent spinal fluid leak, epidural hematoma, nerve damage, spinal cord injury, paralysis, total spinal anesthesia resulting in cardiopulmonary arrest/, respiratory distress requiring intubation, insomnia, hyperglycemia, hair loss, muscle atrophy, skin depigmentation, weight gain, fluid retention, adrenal suppression, immunosuppression, osteoporosis resulting in fractures, avascular necrosis of the hip, cataracts, bleeding gastric ulcer, worsening pain and failure to relieve pain were discussed and the patient is agreeable to proceeding at this time. terminal carman (current) use of anticoagulant s The patient was instructed to discontinue aspirin for 6 days prior to the procedure. I made the patient aware that they will be at an increased risk for a thromboembolic event during this time and they are willing to accept this risk. The patient was instructed to notify their primary care physician and/or marine electronics technician to obtain clearance prior to discontinuing this medication. Other The above-named patient was evaluated in conjunction with Dr. ePrez. I have discussed and reviewed all of the pertinent history, physical examination findings and diagnostic imaging results with him. As a result of our discussion, Dr. Peerz has determined the above assessment and directed the treatment plan. This note was dictated using voice recognition software and therefore inadvertent errors may have occurred. This note was dictated by MARC Vidales. Total Time Spent with Patient and Medical Decision Makin minutes Next Appt Details Follow Up: KELBY C7-T1, Reaso n: Provider Name:Sarwat lopez, 02/12/2025 12:45:00 PM, [address] [place] [address], [phone], Progress Notes * Examination Category Sub-Category Detail Notes Examination/ Pre-Anesthesia Assessment General: The patient is alert and rodrigo ented X 3 in moderate distress secondary to pain HEENT: Normocephalic, atrau matic. PERRL. The oropharynx is clear Neck: There is limited ran ge of motion of the cervical spine to 45 degrees with extension and lateral rotation bilaterally. There is tenderness to palpation over the bilateral C3-4 through C7-T1 facet joints. Extension and lateral rotation of the cervical spine reproduces the patients typical axial neck pain. The axial loading test is positive Heart: Regular rate and rhy thm Chest: Clear to auscultatio n bilaterally Abdomen: Soft and benign Musculoskeletal and Extremities: There i s tenderness to palpation over the bilateral L2-3 through L5-S1 facet joints. Extension and lateral rotation of the lumbar spine reproduces the patient's typical axial low back pain. Rafiq's and Gaenslen's are positive bilaterally. There is tenderness palpation over the bilateral sacroiliac joints and greater trochanters. There is tenderness to palpation over the bilateral lumbar paraspinal muscles and palpable myofascial trigger points throughout. There is weakness and atrophy of the bilateral lumbar paraspinal muscles. There is generalized tenderness to palpation about the left knee joint. Mild left knee effusion is evident. There is generalized tenderness to palpation over the right shoulder. The patient's typical right shoulder pain is reproducible by right shoulder abduction Neurological: There is positive st raight leg raising bilaterally for reproduction of pain down the bilateral L5 dermatomes at 45 degrees. Spurling's test is positive bilaterally Skin: Clean, dry, intact Psychiatric: Mood and affect are normal History and Physical Notes * HPI (History of Present Illness) Category Sub-Category Detail Notes Pain Management Radiographic Imaging Cervical Sp ine MRI with and without Contrast 01/24/19: C4-C5 and C5-C6 interbody fusion. C3-4: A bilateral uncovertebral joint disease with bilateral neuroforaminal stenosis. C4-C5: Solid fusion. C5-6 solid fusion. C6-7: Degenerative disc disease with bilateral foraminal stenosis X-ray of lumbar spine 04/06/23. Slight degenerative spurring of the lumbar spine no fracture, bone destruction, no spondylolisthesi. Sacroiliac joints are intact X-ray chest /ribs 04/06/23 mild degenerative changes of bilateral shoulders, no osseus finding in the ribs Assessment and Follow-up: Follow-up Plan documen joel:: Yes MIPS Quality 2020: MIPS Documented:: Compliant
--- OUTSIDE RECORDS SUMMARY | 2025-01-28 14:49 | XMS_ITS ---
Author Organization [facility] Address [address] [facility] [place] [address] Care Team Providers Care Mortgage Broker Name Role Phone GREG HUIZAR, EPHRAIM Primary Care Provider Sarwat King [phone] REASON FOR VISIT Refills MEDICATIONS Medication SIG (Take, Route, Fr equency, Duration) Notes Start Date End Date Status MS Contin 30 MG 1 tablet Orally ever y 8 hours for 30 days 12/17/2024 Active Encounters Encounter Location Date Provider Diagnosis [facility] [address] [place] [phone] 12/16/2024 Sarwat Perez Radiculopathy, lumbosacral region M54.17 ASSESSMENTS Encounter Date Diagnosis Assessment Notes Treatment Notes Treatment Clinical Notes 12/16/2024 Radiculopathy, lumbosacral region (ICD-10 - M54.17) PLAN OF TREATMENT Medication Medication Name Sig Start Date Stop Date Notes MS Contin 30 MG 1 tablet Orally every 8 hours for 30 days 12/17/2024 Next Appt Details Provider Name:Sawrat lopez, 02/12/2025 12:45:00 PM, [address] [place], [address],
[2025-01-28 16:03] LABS: Basophils Percent Auto 0.3 % (0.2-1.2); Eosinophils Percent Auto 0.3 % (0-4.4); Hematocrit 33.9 % (42.0-52.0); Hemoglobin 11.5 g/dL (14.0-18.0); Immature Granulocyte Absolute 0.01 K/mm3 (0.00-0.031); Immature Granulocyte Percent A 0.3 % (0-0.5); Lymphocytes Absolute Auto 0.79 K/mm3 (0.9-3.2); Lymphocytes Percent Auto 22.6 % (18.3-44.2); Mean Corpuscular HGB Conc 33.9 g/dl (32-36); Mean Corpuscular Hemoglobin 29.2 pg (26-34); Mean Platelet Volume 10.1 fl (7.4-10.4); Monocytes Absolute Auto 0.4 K/mm3 (0.1-0.6); Monocytes Percent Auto 11.2 % (2.6-8.5); Neutrophils Absolute Auto 2.3 K/mm3 (1.3-6.7); Neutrophils Percent Auto 65.3 % (45.5-73.1); Platelet Count Result 138 k/mm3 (150-375); Red Blood Count 3.94 M/mm3 (4.6-6.20); Red Cell Distribution Width 13.4 % (11.5-14.5); White Blood Count 3.5 K/mm3 (4.5-10.0)
[2025-01-28 16:12] LABS: Alanine Aminotransferase 27 U/L (6-50); Albumin Level 4.3 g/dL (3.5-5.1); Alkaline Phosphatase 108 U/L (38-126); Anion Gap 5 mmol/L (4-12); Aspartate Amino Transferase 48 U/L (17-59); Bilirubin,Total 0.5 mg/dL (0.2-1.3); Blood Urea Nitrogen 15 mg/dL (9-20); Calcium 8.9 mg/dL (8.4-10.2); Carbon Dioxide 31 mmol/L (22-30); Chloride 96 mmol/L (98-107); Estimated Glomerular Filt Rate > 60; Glucose 156 mg/dL (65-110); Magnesium 1.7 mg/dL (1.6-2.3); Phenytoin Dilantin 8 ug/mL (10-20); Potassium 4.6 mmol/L (3.4-5.0); Sodium 132 mmol/L (137-145)
[2025-01-28 16:14] LABS: Iron 119 ug/dL (49-181)
[2025-01-28 16:23] LABS: Percent Iron Saturation 56 % (20-50)
[2025-02-01 09:44] LABS: Phenytoin Dilantin Free 0.5 mg/L (1.0-2.0)
== END 2025-01-28 14:35 | disposition home or self-care (01) ==
PROVIDERS: PCP Family Medicine; Visit Provider Family Medicine
DX: D64.9 Anemia, unspecified (principal); E87.1 Hypo-osmolality and hyponatremia; R56.1 Post traumatic seizures; R60.0 Localized edema; B35.1 Tinea unguium; Z79.899 Other long term (current) drug therapy
CPT/HCPCS: 36415; 80048; 80076; 80184; 80185; 80186; 82728; 83540; 83550; 83735; 85025

== ENCOUNTER 2025-06-11 14:05 | Outpatient (CLI) | payer MEDICARE, SELFPAY ==
--- OUTSIDE RECORDS SUMMARY | 2004-07-24 03:30 | XMS_ITS | Continuity of Care Document ---
Author Organization [facility] Address [address] [place] [address] Phone Care Team Providers Care Slip Cover Operator Name Role Phone Helton OD, González Unavailable Unavailable Advance Directives Directive Yes / No Effective Date File Name No Information Encounters Encounter Description Practice Location Reason(s) For Visit Diagnoses Date Provider Providers Copied on Encounter [facility], [address], [place], [place], [id number], [place] tel:[phone] [facility] [place] No Information Nov-0 6-200 4 Helton OD González. [address] [facility] [place] , [address], [place], [address], [place]. tel:[phone] Family History Family Member Type Diagnosis Age At Onset No Information Payers Payer name Insurance type Covered alliance party ID Authoriza tion(s) No Information Social History Type Description Quantity Date Captured Comments Sex Male Smoking Status No Information Chief Complaint And Reason For Visit No Information Reason For Referral Reason For Referral No Information History Of Present Illness Encounter Date Complaint History Of Prese nt Illness No Information Functional Status Date Functional Assessmen t No Information Instructions Date Instruction Additional Infor mation No Information Assessments Type Assessment Date No Information Patient Care Teams Name Effective Dates (start - stop) Status Members No Information
--- OUTSIDE RECORDS SUMMARY | 2024-05-21 09:36 | XMS_ITS | Continuity of Care Document ---
Author Organization [facility] Address [address] [place] [address] Phone Care Team Providers Care Technical Cable Jointer Name Role Phone Paco HUIZAR, Lorne Unavailable Unavailable Allergies, Adverse Reactions, Alerts Substance Reaction Status Criticality PENICILLIN Active No Information Medications Medication Instructions Dosage Effective Dates (start - stop) Status Comments GaviLyte-G 236 gram-22.74 gram-6.74 gram-5.86 gram oral solution DRINK HALF THE BOTTLE AT 5 PM THE NIGHT BEFORE COLONOSCOPY AND THE OTHER HALF 6 HOURS PRIOR TO COLONOSCOPY - Active OR ANY GENERIC EQUIVALENT TO MOVANTIK 25 MG TABLET TAKE ONE TABLET BY MOUTH ONCE DAILY IN THE MORNING - Active ferrous sulfate 325 mg (65 mg iron) tablet take 1 tablet by oral route every day 325 MG - Active Basaglar KwikPen U-100 Insulin 100 unit/mL (3 mL) subcutaneous inject by subcutaneous route per prescriber's instructions. Insulin dosing requires individualization . 0.00 - Active Novolog Flexpen U-100 Insulin aspart 100 unit/mL subcutaneous inject by subcutaneous route per prescriber's instructions. Insulin dosing requires individualization . 0.00 - Active phenobarbital 97.2 mg tablet take 1 tablet by oral route every day at bedtime 97.2 MG - Active Dilantin Extended 100 mg capsule take 3 capsule by oral route 1 times every other day then 4 capsules every other day - Active metoprolol tartrate 100 mg tablet take 1 tablet by oral route every day with meals 100 MG - Active temazepam 30 mg capsule take 1 capsule by oral route every day at bedtime as needed as needed 30 MG - Active simvastatin 20 mg tablet take 1 tablet by oral route every day in the evening 20 MG - Active MS Contin 30 mg tablet,extended release take 1 tablet by oral route 3 times a day - Active Roxicodone 15 mg tablet take 1 tablet by oral route every 6 hours 15 MG - Active tizanidine 4 mg tablet take 1 tablet by oral route every 5 - 8 hours as needed not to exceed 3 doses in 24 hours 4 MG - Active Lidoderm 5 % topical patch apply 1 -2patch by transdermal route every day (May wear up to 12hours.) - Active Voltaren 1 % topical gel apply (2G) by topical route 4 times every day to the affected area(s) as needed - Active Aspir-81 81 mg tablet,delayed release take 1 tablet by oral route every day - Active omeprazole 20 mg tablet,delayed release take 1 capsule by oral route every day 1 capsule - Active fluconazole 100 mg tablet take 1 tablet by oral route every day 100 MG - Active CALCIUM CARBONATE/VITAMIN D3 (unknown strength) Take 1 tablet daily Not Available - Active STOOL SOFTENER (unknown strength) take 1 capsule by oral route every day at bedtime as needed Not Available - Active Advance Directives Directive Yes / No Effective Date File Name No Information Encounters Encounter Description Practice Location Reason(s) For Visit Diagnoses Date Provider Providers Copied on Encounter [facility], [address], [place], [place], [id number] , tel: [phone] [facility] No Information 4 Sportiliacristobal Affinergyanastasia. [address] [place] [address], [id number] , [place]. tel: [phone] [facility], [address], [place], [place], [id number] , tel: [phone] [facility] No Information 4 Kontesti Affinergydad. [address] [place], [place], [address] , [place]. tel: [phone] [facility], [address], [place], [place], [address] , [place] tel: [phone] [facility] No Information 0 B[address]. [address] [place], [place], [id number] , . tel: [phone] [facility], [address], [place], [place], [address] , [place] tel: [phone] [facility] left hip (chief complaint) Chronic bilateral low back pain without sciaticaOther chronic pain 9 Jess Tran. [address], [facility] [address], [place], [place], [id number] , [place]. tel: [phone] Referring Provider: [address], [place], [address] . tel:[phone] [facility], [address], [place], [place], [address] , tel: [phone] [facility] Follow up anemia (chief complaint) Other iron deficiency anemiaOther dysphagiaTherapeut ic opioid induced constipationAdvers e effect of other opioids, initial encounter 9 Josiah Hernandez. [address] [place], [place], [id number] , [place]. tel: [phone] Referring Provider: Anmol Gomez, [address] [place] [address], [place], [address]. tel:[phone] [facility], [address], [place], [place], [address] , tel: [phone] [facility] No Information [address] [place], [place], [id number] , [place]. tel: [phone] Family History Family Member Type Diagnosis Age At Onset No Information Payers Payer name Insurance type Covered republican ID Authoriza tion(s) MEDICARE MB [id number] Social History Type Description Quantity Date Captured Comments Sex Male Smoking Status No Information Chief Complaint And Reason For Visit No Information Reason For Referral Reason For Referral No Information Plan Of Treatment Date Type Action Status Referral Ordered: Xray Exam, Hip, Unilat, Two Or Three Views Left ordered Referral Ordered: Capsule endoscopy from mouth to anus Appointment date/timeframe: 02/19/2019 ordered History Of Present Illness Encounter Date Complaint History Of Prese nt Illness left hip long hx of low b ack and neck pain problems and surgery here to check for possible left hip abnormality xrys obtained neg mri reviewed - negative Follow up anemia (comments) 58 y ear old male that presents for follow up for anemia. Recently had EGD for dysphagia and iron deficiency anemia. Pt denies any complaints of dysphagia. Is currently on omeprazole daily. Currently taking Movantik for OIC, helps has daily bowel movement. Was recommended to start on iron pill by pcp, taking once daily has only been taking for anemia. Labs reviewed from 12/27 H & H low, iron values low. Had EGD no evidence of bleeding, colonoscopy in 2016 no evidence of bleeding. Denies any GI bleeding, and melena. Weight stable. Follow up anemia Functional Status Date Functional Assessmen t No Information Instructions Date Instruction Additional Infor mation painless rom hips ne g hip xray and mri ok full activity continue w dr preston abraham as needed Related to Chronic bilateral low back pain without sciatica Disease process If you develop any d ifficulty swallowing call the office Related to Other dysphagia We are getting you s cheduled for an capsule endoscopy this will allow the small intestines to be examined for any bleedingContinue with the iron as you have been Further recommendations to follow after the capsule endoscopy is completedFollow up in the office in 2 months Related to Other iron deficiency anemia Continue with the Mo vantik and stool softeners as you have been Related to Therapeutic opioid induced constipation Assessments Type Assessment Date No Information Patient Care Teams Name Effective Dates (start - stop) Status Members No Information
--- OUTSIDE RECORDS SUMMARY | 2025-04-09 03:00 | XMS_ITS ---
Author Organization [facility] Address [address] [facility] [place] [address] Care Team Providers Care Assayer Helper Name Role Phone GREG HUIZAR, EPHRAIM Primary Care Provider Sarwat King [phone] REASON FOR VISIT refill MEDICATIONS Medication SIG (Take, Route, Frequency, Duration) Notes Start Date End Date Status Cyclobenzaprine HCl 10 MG 1 tab as neede d Orally BID for 30 days 01/14/2020 Active Encounters Encounter Location Date Provider Diagnosis [facility] [address] [place] [phone] 04/09/2025 Sarwat Perez Radiculopathy, lumbosacral region M54.17 ASSESSMENTS Encounter Date Diagnosis Assessment Notes Treatment Notes Treatment Clinical Notes Section Notes 04/09/2025 Radiculopathy, lumbosacral region (ICD-10 - M54.17) PLAN OF TREATMENT Medication Medication Name Sig Start Date Stop Date Notes Cyclobenzaprine HCl 10 MG 1 tab as neede d Orally BID for 30 days 01/14/2020 Next Appt Details Provider Name:Sarwat lopez, 06/26/2025 01:00:00 PM, [address] [place], [address],
--- OUTSIDE RECORDS SUMMARY | 2025-04-23 08:15 | XMS_ITS ---
Author Organization [facility] Address [address] [place] [address] [place] [address] Care Team Providers Care Barrel Washer Name Role Phone GREG HUIZAR, EPHRAIM Primary Care Provider Sarwat King Unavailable [phone] ALLERGIES Allergen (clinical drug ingredient) Drug/Non Drug Allergy documented on EMR Reaction Allergy Type Onset Date Status Penicillin Unknown Drug Allergy Active REASON FOR VISIT Follow Up, Left > Right Low Back Pain, Left = Right Lower Extremity Pain, Right > Left Neck Pain, Right = Left Upper Extremity Pain MEDICATIONS Medication SIG (Take, Route, Frequency, Duration) Notes Start Date End Date Status Lyrica 75 MG 1 capsule Orally every 8 hours for 30 days 03/14/2025 Active Terbinafine HCl 250 MG TAKE 1 TABLET BY MOUTH EVERY DAY Oral for 30 Active MS Contin 30 MG 1 tablet Orally ever y 8 hours for 30 days MAY FILL 04/27/25 04/23/2025 Active Cyclobenzaprine HCl 10 MG 1 tab as needed Orally BID for 30 days 01/14/2020 Active Furosemide 20 MG Oral for 90 A ctive Lidoderm 5 % 2 patch remove after 12 hours Externally Once a day for 30 days 04/27/2022 Active Movantik 25 MG 1 tablet in the morning Orally Once a day for 30 day(s) 06/29/2022 Active Eszopiclone 3 MG 1 tablet immediately before bedtime Oral Once a day Active Lantus SoloStar 100 UNIT/ML Subcutaneous for 108 Active Vitamin D3 125 MCG (5000 UT) TAKE 1 CAPSULE BY MOUTH EVERY DAY Oral for 90 Active Lidocaine HCl 3 % 1 application as needed Externally Twice a day for 30 days 03/04/2021 Active HumaLOG KwikPen 100 UNIT/ML as directed Subcutaneous Active Flector 1.3 % 1 patch Externally Twice a day for 30 days 04/27/2023 Active Medrol 4 MG as directed Orally 01/26/2023 Active Lidocaine 5 % 1 application as needed Externally Three times a day for 30 days 03/31/2021 Active NovoLOG FlexPen 100 UNIT/ML Subcutaneous for 90 Active Mometasone Furoate 0.1 % 1 application Externally Once a day Active Nystatin-Triamcinolone 689715-9.1 UNIT/GM 1 application Externally Twice a day Active Voltaren 1 % 2 grams on each knee Transdermal 3 times a day 05/09/2018 Active Ferrous Sulfate 325 (65 Fe) MG 1 tablet Orally Once a day for 30 day(s) Active Simvastatin 20 MG 1 tablet in the evening Orally Once a day for 30 day(s) Active Temazepam 15 MG 1 capsule at bedtime as needed Orally Once a day Active Basaglar KwikPen 100 UNIT/ML as directed Subcutaneous Active Phenytoin Sodium Extended 100 MG 1 capsule Oral every 12 hrs Active Omeprazole 20 MG 1 capsule 30 minutes before morning meal Oral Once a day Active Metoprolol Succinate ER 100 MG 1 tablet Oral Once a day Active PHENobarbital 97.2 MG 1 tablet Oral Twic e a day Active Narcan 4 MG/0.1ML 1 actuation in one nostril x1, Nasally 2-3 minutes as needed until the patient is responsive or EMS arrives Active SOCIAL HISTORY Tobacco Use: Social History [...] ast year? No Points 0 Interpretation Negative Section Notes: The patient is on disability . He is . He smokes one cigar a day. He denies alcohol or drug abuse. VITAL SIGNS Blood pressure systolic 147 mm Hg 04/23/20 25 Blood pressure diastolic 85 mm Hg 025 Heart Rate 75 /min 04/23/2025 Respiratory Rate 16 /min 04/23/2025 Height 66 in 04/23/2025 Weight 128 lbs 04/23/2025 BMI 20.66 kg/m2 04/23/2025 Encounters Encounter Location Date Provider Diagnosis [facility] [address] [facility] [place] [address] 04/23/2025 Sarwat angelinajohn Radiculopathy, lumbosacral region M54.17 ; Radiculopathy, cervical region M54.12 ; Radiculopathy, lumbar region M54.16 ; Postlaminectomy syndrome, not elsewhere classified M96.1 ; Spondylosis without myelopathy or radiculopathy, cervical 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 ; Intervertebral disc disorders with radiculopathy, lumbar region M51.16 ; Other intervertebral disc degeneration, lumbosacral region M51.37 ; Spinal stenosis, cervical region M48.02 ; 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 04/23/2025 Radiculopathy, lumbar region (ICD-10 - M54.16) 04/23/2025 Postlaminectomy syndrome, not elsewhere classified (ICD-10 - M96.1) The side effects of opioid analgesics including [...] to fully comply with the above. The [place] and [place] PDMP were reviewed and were appropriate 04/23/2025 Spondylosis without myelopathy or radiculopathy, cervical region (ICD-10 - M47.812) 04/23/2025 Intervertebral disc disorders with radiculopathy, lumbar region (ICD-10 - M51.16) 04/23/2025 Other intervertebral disc degeneration, lumbosacral region (ICD-10 - M51.37) 04/23/2025 Spinal stenosis, cervical region (ICD-10 - M48.02) 04/23/2025 FDC (current) use of opiate analgesic (ICD-10 - Z79.891) 04/23/2025 public area supervisor (current) use of anticoagulants (ICD-10 - Z79.01) The patient was instructed to discontinue aspirin for 6 days prior to the procedure. I made the patient aware that they will be at an increased risk for a thromboembolic event during this time and they are willing to accept this risk. The patient was instructed to notify their primary care physician and/or skein dyer to obtain clearance prior to discontinuing this medication. 04/23/2025 Primary osteoarthritis, right shoulder (ICD-10 - M19.011) 04/23/2025 Drug induced constipation (ICD-10 - K59.03) 04/23/2025 Chest pain, unspecified (ICD-10 - R07.9) 04/23/2025 Other The above-named patient was evaluated in [...] ever y 8 hours for 30 days 04/23/2025 MAY FILL 04/27/25 Treatment Notes Assessment Notes Radiculopathy, cervical region Schedule a cervical epidural [...] is agreeable to proceeding at this time. Postlaminectomy syndrome, no t elsewhere classified The side effects of opioid analgesics including [...] to fully comply with the above. The [place] and [place] PDMP were reviewed and were appropriate public area supervisor (current) use of anticoagulant s The patient was instructed to discontinue aspirin for 6 days prior to the procedure. I made the patient aware that they will be at an increased risk for a thromboembolic event during this time and they are willing to accept this risk. The patient was instructed to notify their primary care physician and/or skein dyer to obtain clearance prior to discontinuing this [...] Up: KELBY C7-T1, Reaso n: Provider Name:Sarwat Rose Katt lopez, 06/26/2025 01:00:00 PM, [address] [place] [address], [phone], Progress Notes * Examination Category Sub-Category Detail Notes Category Not es Examination/ Pre-Anesthesia Assessment General: The patient is alert and rodrigo ented X 3 in moderate distress secondary to pain UDS 02/25/25: Positive for prescribed medications, Also positive for THC. The patient has a medical cannabis card. HEENT: Normocephalic, atrau matic. PERRL. The oropharynx [...] of Present Illness) Category Sub-Category Detail Notes Category Not es Pain Management Radiographic Imaging Cervical Sp ine [...] the ribs Assessment and Follow-up: Follow-up Plan documesamantha joel:: Yes [facility] Quality 2020: [facility] Documented:: Compliant
--- OUTSIDE RECORDS SUMMARY | 2025-05-05 07:45 | XMS_ITS ---
Author Organization [facility] Address [address] [place] [address] [place] [address] Care Team Providers Care News Specialist Name Role Phone GREG HUIZAR, EPHRAIM Primary Care Provider Sarwat King Unavailable [phone] ALLERGIES Allergen (clinical drug ingredient) Drug/Non Drug Allergy documented on EMR Reaction Allergy Type Onset Date Status Penicillin Unknown Drug Allergy Active REASON FOR VISIT Right>Left Neck Pain, Right>Left Upper Extremity Pain MEDICATIONS Medication SIG (Take, Route, Frequency, Duration) Notes Start Date End Date Status MS Contin 30 MG 1 tablet Orally ever y 8 hours for 30 days MAY FILL 04/27/25 03/26/2025 Active Cyclobenzaprine HCl 10 MG 1 tab as needed Orally BID for 30 days 01/14/2020 Active Terbinafine HCl 250 MG TAKE 1 TABLET BY MOUTH EVERY DAY Oral for 30 Active Furosemide 20 MG Oral for 90 A ctive Lyrica 75 MG 1 capsule Orally every 8 hours for 30 days 03/14/2025 Active Vitamin D3 125 MCG (5000 UT) TAKE 1 CAPSULE BY MOUTH EVERY DAY Oral for 90 Active Lantus SoloStar 100 UNIT/ML Subcutaneous for 108 Active Movantik 25 MG 1 tablet in the morning Orally Once a day for 30 day(s) 06/29/2022 Active Eszopiclone 3 MG 1 tablet immediately before bedtime Oral Once a day Active Lidoderm 5 % 2 patch remove after 12 hours Externally Once a day for 30 days 04/27/2022 Active Flector 1.3 % 1 patch Externally Twice a day for 30 days 04/27/2023 Active Medrol 4 MG as directed Orally 01/26/2023 Active HumaLOG KwikPen 100 UNIT/ML as directed Subcutaneous Active Lidocaine 5 % 1 application as needed Externally Three times a day for 30 days 03/31/2021 Active Lidocaine HCl 3 % 1 application as needed Externally Twice a day for 30 days 03/04/2021 Active Ferrous Sulfate 325 (65 Fe) MG 1 tablet Orally Once a day for 30 day(s) Active Nystatin-Triamcinolone 014189-6.1 UNIT/GM 1 application Externally Twice a day Active Voltaren 1 % 2 grams on each knee Transdermal 3 times a day 05/09/2018 Active NovoLOG FlexPen 100 UNIT/ML Subcutaneous for 90 Active Mometasone Furoate 0.1 % 1 application Externally Once a day Active Phenytoin Sodium Extended 100 MG 1 capsule Oral every 12 hrs Active Omeprazole 20 MG 1 capsule 30 minutes before morning meal Oral Once a day Active Temazepam 15 MG 1 capsule at bedtime as needed Orally Once a day Active Basaglar KwikPen 100 UNIT/ML as directed Subcutaneous Active Simvastatin 20 MG 1 tablet in the evening Orally Once a day for 30 day(s) Active Narcan 4 MG/0.1ML 1 actuation in one nostril x1, Nasally 2-3 minutes as needed until the patient is responsive or EMS arrives Active Metoprolol Succinate ER 100 MG 1 [...] some days, bu t not every day Section Notes: The patient is on disability . He is . He smokes one cigar a day. He denies alcohol or drug abuse. VITAL SIGNS Blood pressure systolic 159 mm Hg 05/05/20 25 Blood pressure diastolic 89 mm Hg 025 Heart Rate 75 /min 05/05/2025 Respiratory Rate 18 /min 05/05/2025 Height 66 in 05/05/2025 Weight 128 lbs 05/05/2025 BMI 20.66 kg/m2 05/05/2025 Post procedure VS= BP 154/90 , P 73, R 16Discharged home, ambulatory per self. In no acute distress. Encounters Encounter Location Date Provider Diagnosis [facility] [address] [place] [phone] 05/05/2025 Sarwat Perez Radiculopathy, cervical region M54.12 ; Radiculopathy, cervicothoracic region M54.13 and Spinal stenosis, cervical region M48.02 ASSESSMENTS Encounter Date Diagnosis Assessment Notes Treatment Notes Treatment Clinical Notes Section Notes 05/05/2025 Radiculopathy, cervical region (ICD-10 - M54.12) 05/05/2025 Radiculopathy, cervicothoracic region (ICD-10 - M54.13) 05/05/2025 Spinal stenosis, cervical region (ICD-10 - M48.02) PLAN OF TREATMENT Next Appt Details Follow Up: 05/27/25 F/UBonilla n: Provider Name:Sarwat lopez, 06/26/2025 01:00:00 PM, [address] [place] [address], [phone], Procedure Notes * Category Sub-Category Detail Notes Cervical Epidural Steroid In jection Under Fluoroscopy Anesthesia: Local without IV sedation Operative Technique: After the risks, be nefits, alternative treatment options and potential complications related to the procedure were discussed, informed consent was obtained. The specific risks of this procedure including pain, bleeding, [...] is agreeable to proceeding at this time. The patient was placed in the prone position on the fluoroscopy table and standard ASA monitors were applied. The neck was prepped and draped in the usual sterile fashion with chlorhexidine 2%/IPA 70%. The C7-T1 interspace was identified under x-ray guidance and the skin and subcutaneous structures above it were anesthetized with 3 mL of 1% Preservative-Free lidocaine through a 25 g 1.5 inch needle. A 20 gauge 9 cm Touhy epidural needle was inserted under fluoroscopic guidance. Multiple AP and lateral views were taken to ensure correct needle tip placement. Using a LORE technique, 1 mL of Preservative-Free normal saline was injected into the posterior epidural space. After negative aspiration for blood, air or CSF, 2 mL of Omnipaque 240 contrast dye was injected for an epidurogram under live fluoroscopy (except in cases of contrast allergy) showing good spread within the epidural space. No intravascular or intrathecal spread was noted. A solution of 10 mg of Dexamethasone (10 mg/mL) plus 2 mL of Preservative-Free normal saline was mixed and after negative aspiration this solution was slowly injected into the epidural space without resistance. The needle was removed, the skin was cleaned and a band-aid was placed over the puncture site. The patient tolerated the procedure well, was able to ambulate without difficulty and was monitored for 20 minutes. Patient reports a 90% reduction in typical pain immediately postprocedure. The patient remained hemodynamically and neurologically stable. No apparent complications were observed. Postoperative instructions were reviewed with the patient. 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 X-ray time: 14 seconds Progress Notes * Examination Category Sub-Category Detail [...] and Follow-up: Follow-up Plan documen joel:: Yes [facility] Quality 2020: [facility] Documented:: Compliant
--- OUTSIDE RECORDS SUMMARY | 2025-05-23 02:56 | XMS_ITS ---
Author Organization [facility] Address [address] [facility] [place] [address] Care Team Providers Care Claim Analyst Name Role Phone GREG HUIZAR, EPHRAIM Primary Care Provider Sarwat King [phone] MEDICATIONS Medication SIG (Take, Route, Frequency, Duration) Notes Start Date End Date Status Lidoderm 5 % 2 patch remove after 12 hours Externally Once a day for 30 days 04/27/2022 Active Encounters Encounter Location Date Provider Diagnosis [facility] [address] [place] [phone] 05/23/2025 Sarwat Perez Radiculopathy, cervical region M54.12 ASSESSMENTS Encounter Date Diagnosis Assessment Notes Treatment Notes Treatment Clinical Notes Section Notes 05/23/2025 Radiculopathy, cervical region (ICD-10 - M54.12) PLAN OF TREATMENT Medication Medication Name Sig Start Date Stop Date Notes Lidoderm 5 % 2 patch remove after 12 hours Externally Once a day for 30 days 04/27/2022 Next Appt Details Provider Name:Sarwat lopez, 06/26/2025 01:00:00 PM, [address] [place], [phone],
--- OUTSIDE RECORDS SUMMARY | 2025-05-27 08:00 | XMS_ITS ---
Author Organization [facility] Address [address] [place] [address] [place] [address] Care Team Providers Care Furniture Cleaner Name Role Phone GREG HUIZAR, EPHRAIM Primary Care Provider Sarwat King Unavailable [phone] ALLERGIES Allergen (clinical drug ingredient) Drug/Non Drug Allergy documented on EMR Reaction Allergy Type Onset Date Status Penicillin Unknown Drug Allergy Active REASON FOR VISIT Follow Up, Left > Right Neck Pain, Left = Right Upper Extremity Pain, Right = Left Low Back Pain MEDICATIONS Medication SIG (Take, Route, Frequency, [...] morning meal Oral Once a day Active MS Contin 30 MG 1 tablet Orally ever y 8 hours for 30 days MAY FILL 05/30/25 05/27/2025 Active Narcan 4 MG/0.1ML 1 actuation in one nostril x1, Nasally 2-3 minutes as needed until the patient is responsive or EMS arrives Active Metoprolol Succinate ER 100 MG 1 tablet Oral Once a day Active PHENobarbital 97.2 MG 1 tablet Oral Twic e a day Active Ketorolac Tromethamine 0.5 % INSTILL 1 DROP INTO BOTH EYES 4 TIMES A DAY Ophthalmic for 18 Active Lyrica 75 MG 1 capsule Orally every 8 hours for 30 days 03/14/2025 Active Terbinafine HCl 250 MG TAKE 1 TABLET BY MOUTH EVERY DAY Oral for 30 Active Lidoderm 5 % 2 patch remove after 12 hours Externally Once a day for 30 days 04/27/2022 Active Cyclobenzaprine HCl 10 MG 1 tab as needed Orally BID for 30 days 01/14/2020 Active Furosemide 20 MG Oral for 90 A ctive Movantik 25 MG 1 tablet in the morning Orally Once a day for 30 day(s) 06/29/2022 Active Eszopiclone 3 MG 1 tablet immediately before bedtime Oral Once a day Active Lantus SoloStar 100 UNIT/ML Subcutaneous for 108 Active Vitamin D3 125 MCG (5000 UT) TAKE 1 CAPSULE BY MOUTH EVERY DAY Oral for 90 Active HumaLOG KwikPen 100 UNIT/ML as directed Subcutaneous Active NovoLOG FlexPen 100 UNIT/ML Subcutaneous for 90 Active Flector 1.3 % 1 patch Externally [...] Once a day for 30 day(s) Active Mometasone Furoate 0.1 % 1 application Externally Once a day Active Nystatin-Triamcinolone 422141-3.1 UNIT/GM 1 application Externally Twice a day Active Voltaren 1 % 2 grams on each knee Transdermal 3 times a day 05/09/2018 Active SOCIAL HISTORY Tobacco Use: Social History [...] drug abuse. VITAL SIGNS Blood pressure systolic 150 mm Hg 05/27/20 25 Blood pressure diastolic 90 mm Hg 025 Heart Rate 78 /min 05/27/2025 Respiratory Rate 16 /min 05/27/2025 Height 66 in 05/27/2025 Weight 127 lbs 05/27/2025 BMI 20.50 kg/m2 05/27/2025 Encounters Encounter Location Date Provider Diagnosis [facility] [address] [facility] [place] [address] 05/27/2025 Sarwat Bolivarjohn Radiculopathy, cervical region M54.12 ; Postlaminectomy syndrome, not elsewhere classified M96.1 ; Radiculopathy, cervicothoracic region M54.13 ; Spinal stenosis, cervical region M48.02 ; Radiculopathy, lumbar region M54.16 ; snf (current) use of opiate analgesic Z79.891 and Primary osteoarthritis, right shoulder M19.011 ASSESSMENTS Encounter Date Diagnosis Assessment Notes Treatment Notes Treatment Clinical Notes Section Notes 05/27/2025 Radiculopathy, cervical region (ICD-10 - M54.12) 05/27/2025 Postlaminectomy syndrome, not elsewhere classified (ICD-10 - [...] to fully comply with the above. 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 05/27/2025 Primary osteoarthritis, right shoulder (ICD-10 - M19.011) 05/27/2025 Other The above-named patient was evaluated in [...] ever y 8 hours for 30 days 05/27/2025 MAY FILL 05/30/25 Treatment Notes Assessment Notes Postlaminectomy syndrome, no t elsewhere classified The [...] to fully comply with the above. The [place] PDMP were reviewed and were appropriate snf (current) use of o piate analgesic The patient submitted a urine sample for drug screening to ensure compliance. Other The above-named patient was evaluated in [...] Makin minutes Next Appt Details Follow Up: 4 Weeks [facility], Reas on: Provider Name:Sarwat lopez, 06/26/2025 01:00:00 PM, [address] [place] [address], [phone], Progress Notes * Examination Category Sub-Category Detail [...]
--- OUTSIDE RECORDS SUMMARY | 2025-06-11 14:11 | XMS_ITS | Clinical Summary ---
Author Organization [facility] Address [address] [place] [address] Care Team Providers Care Artificial Marble Worker Name Role Phone Sarwat Phillips MD Unavailable [phone] Se Mcqueen MD Primary Care Provider [phone] Source Comments [facility],non-owned Affiliates and Associated Physician Practices is amultiple site organization consisting of ambulatory clinics and hospital sitesin [place], [place], [place] and [place]. This disclosure is being madepursuant to the Care Everywhere program and may not contain all information available regarding this patient. Last updated 18.[facility] Allergies Active Allergy Reactions Criticality Noted Date Comments Levonorgest-Eth Estrad Other 06/03/2025 Trichophyton Other Low 07/12/2016 Sinus problems. Penicillin G Sodium Low 01/07/2016 Other reaction(s): Other (See Comments) Infancy. Penicillins Unknown 03/17/2022 Medications * Be aware that medications may [...] 3 times daily 020 Active nystatin (MYCOSTATIN) 316794 UNIT/GM ointment Apply to affected area 2 [...] Active vitamin D, ergocalciferol, (Drisdol) 1.25 MG (41542 UT) capsuleIndications:Hypo vitaminosis D Take 1 (one) [...] 6 times daily while awake 750 strip 11 025 Active cyclobenzaprine (Flexeril) 10 MG tabletIndications:Low back pain without sciatica, unspecified back pain laterality, unspecified chronicity Take 1 (one) tablet by mouth 2 times daily as needed for Muscle Spasms 025 Active simvastatin (Zocor) 20 MG tabletIndications:Pure hypercholesterolemia Take 1 (one) tablet by mouth once daily 90 tablet 11 025 Active insulin lispro (HumaLOG KwikPen) 100 [...] hyperglycemia (HCC) 4 times daily 400 Each 11 025 Active Lantus SoloStar penIndications:Type 1 diabetes mellitus with hyperglycemia (HCC) INJECT 14 UNITS SUBCUTANEOUSLY AT BEDTIME 15 mL 2 025 Active vitamin D (Cholecaciferol) 125 MCG (5000 UT) capsule Take 1 (one) capsule by mouth once daily 025 Active eszopiclone (Lunesta) 3 MG tablet 025 Active furosemide (Lasix) 20 MG tablet Oral for 90 Active ketorolac (Acular) 0.5 % ophthalmic solution INSTILL 1 DROP INTO BOTH EYES 4 TIMES A DAY Ophthalmic for 18 Active morphine CR 12hr (MS Contin) 30 MG tablet Take 1 (one) tablet by mouth every 8 hours Active prednisoLONE acetate (Pred Forte) 1 % ophthalmic suspension INSTILL 1 DROP INTO BOTH EYES 4 TIMES A DAY 025 Active Active Problems Problem Noted Date [...] Encounters Date Type Department Care Team Description 06/03/2025 1:20 PM CDT Office Visit [facility] - Endocrinology [address] [place] [address] Dimitri Green MD Type 1 diabetes mellitus with hyperglycemia (CMS/HCC) (Primary Dx) 06/03/2025 Travel from Last 3 Months Immunizations Immunization [...] Known Brother 3 Other - Anesthesia Father Johnny None Known Maternal Grandfather None Known Maternal [...] Alive HTN; no heart d z Father Johnny CM; ICD; no CAD Maternal Grandfather Maternal [...] on file Legal Sex Male 3:51 PM [employer] Gender Identity Not on file Sexual Orientation Not on file Occupation Industry Job Start Date Job End Date disabled Not on file Not on file Not on file Last Filed Vital Signs Vital Sign Reading Time Taken Comments Blood Pressure 151/73 06/03/2025 1:55 PM CDT Pulse 69 06/03/2025 1:55 PM CDT Temperature 37.1 C (98.8 F) 07/04/2019 3:07 PM CDT Respiratory Rate 14 05/14/2020 2:07 PM CDT Oxygen Saturation 97% 06/03/2025 1:55 PM CDT Inhaled Oxygen Concentration - - Weight 57.6 kg (127 lb) 06/03/2025 1:55 PM CDT Height 166.4 cm (5' 5.5) 06/03/2025 1:55 PM CDT Body Mass Index 20.81 06/03/2025 1:55 PM CDT Plan of Treatment Upcoming Encounters Date Type Department Care Team (Late st Contact Info) Description 12/01/2025 1:40 PM CDT Office Visit [facility] - Endocrinology [address] [place] [address], [place] [address] Dimitri Green MD [address] [place] [address] [place] [address] Health Maintenance Due Date Last Done Comments BONE DENSITY TESTING 1960 COLOGUARD (AGES 45-75) - COLON CA SCREENING 1960 CT COLONOGRAPHY - COLON CA SCREENING [...] 07/04/2020 07/04/2019, 04/20/2018, 04/20/2018 AAA SCREENING 2023 DTAP/TDAP/TD VACCINES (2 - Td or Tdap) 09/09/2024 09/09/2014 DEPRESSION SCREENING 09/18/2024 12/01/2022 MEDICARE AWV CALENDAR YEAR 2024 COVID-19 VACCINE ( season) 2025 08/11/2021, 11/23/2020 INFLUENZA VACCINE (#1) 2025 , 07/04/2019, 06/22/2012, Additional history exists DIABETES-HGB A1C 12/01/2025 06/03/2025, , 03/10/2020, Additional history exists DIABETES - URINE PROTEIN SCREENING 12/03/2025 12/03/2024, 01/24/2019, 12/27/2018, Additional history exists DIABETES-SERUM CREATININE 12/03/20252024, 06/03/2018, 06/02/2018, Additional history exists DIABETES RETINOPATHY SCREENING 05/06/2026 05/06/2025, 03/11/2025, 01/28/2025, Additional history exists COLON MONITORING 07/21/2027 07/21/2017 COLONOSCOPY - COLON CA SCREENING 07/21/2027 07/21/2017 [...] Procedure Name Priority Date/Time Associated Diagnosis Comments HEMOGLOBIN A1C - POINT OF CARE (AMB) [facility] Routine 06/03/2025 2:08 PM CDT Type 1 diabetes mellitus with hyperglycemia (CMS/HCC) EYE EXAM Routine 05/06/2025 3:06 PM CDT EYE EXAM Routine 03/11/2025 3:01 PM CDT MICROALB/CREAT RATIO URINE RANDOM PANEL Routine 12/03/2024 2:58 PM CDT Type 1 diabetes mellitus with hyperglycemia COMPREHENSIVE METABOLIC PANEL Routine 12/03/2024 2:58 PM CDT Type 1 diabetes mellitus with hyperglycemia from Last 3 Months or Most Recently Relevant to Health Maintenance Results * HEMOGLOBIN A1C - POINT OF CARE (AMB) [facility] (06/03/2025 2:08 PM CDT) Pathologist [facility] Hemoglobin A1c POCT 7.8 % [address] BLOOD SPECIMEN / Unknown 06/03/2025 2:08 PM CDT Dimitri Green MD LAB - POINT OF CARE ORDERABLES Final Result [address], [place] [address], [facility] [phone] * EYE EXAM (05/06/2025 3:06 PM CDT) Anatomical Region Laterality Modality Other Historical Provider MD SCANNING ONLY Final Res ult * EYE EXAM (03/11/2025 3:01 PM CDT) Anatomical Region Laterality Modality Other Historical Provider MD SCANNING ONLY Final Res ult * MICROALB/CREAT RATIO URINE RANDOM PANEL (12/03/2024 2:58 PM CDT) [facility] Albumin Random Urine <5.0 Not Established ug/mL 12/03/2024 4:01 PM CDT [facility] Creatinine Urine 19.12 Not Established mg/dL 12/03/2024 4:01 PM CDT [facility] Urine Albumin/Creati nine Ratio <26 <30 mg/g 12/03/2024 4:01 PM CDT [facility] Albumin/Creati nine Ratio Urine See Comment <30 mg/g 12/03/2024 4:01 PM CDT [facility] Comment:Unable to calculate the Urine Albumin/Creatinine Ratio due to one or more analyte concentration(s) being outside the measuring limits of the instrument. Urine URINE SPECIMEN OBTAINED BY CLEAN CATCH PROCEDURE / Unknown Collection / Unknown 12/03/2024 2:58 PM CDT 12/03/2024 3:26 PM CDT us Dimitri Green MD LAB - URINE CHEMISTRY ORDERABL ES Final Result [facility] [address] [place] [address], [facility] [phone] * (ABNORMAL) COMPREHENSIVE METABOLIC PANEL (12/03/2024 2:58 PM CDT) BUN 13 7 - 26 mg/dL 12/03/2024 4:01 PM [facility] Creatinine 0.66(L) 0.71 - 1.16 mg/dL 12/03/2024 4:01 PM [facility] Sodium 135(L) 136 - 145 mmol/L 12/03/2024 4:01 PM [facility] Potassium 5.3(H) 3.5 - 4.5 mmol/L 12/03/2024 4:01 PM [facility] Chloride 98 98 - 107 mmol/L 12/03/2024 4:01 PM [facility] CO2 32(H) 22 - 29 mmol/L 12/03/2024 4:01 PM [facility] Glucose 205(H) 70 - 99 mg/dL 12/03/2024 4:01 PM [facility] Calcium 8.9 8.4 - 10.2 mg/dL 12/03/2024 4:01 PM [facility] Protein Total 6.6 6.0 - 8.3 g/dL 12/03/2024 4:01 PM [facility] Albumin 3.8 3.4 - 5.0 g/dL 12/03/2024 4:01 PM [facility] Bilirubin Total 0.5 0.2 - 1.2 mg/dL 12/03/2024 4:01 PM [facility] Alkaline Phosphatase 132 40 - 150 U/L 12/03/2024 4:01 PM [facility] ALT 32 5 - 55 U/L 12/03/2024 4:01 PM [facility] AST 55(H) 5 - 34 U/L 12/03/2024 4:01 PM [facility] Anion Gap 5(L) 6 - 16 12/03/2024 4:01 PM [facility] BUN/Creatinine Ratio 20 7 - 23 12/03/2024 4:01 PM [facility] Osmolality Calculated 286 275 - 295 mOsm/kg 12/03/2024 4:01 PM [facility] Albumin/Globulin Ratio 1.4 1.1 - 2.3 12/03/2024 4:01 PM [facility] eGFR by CKD-EPI >90 >=90 mL/min/1.7 3 m2 12/03/2024 4:01 PM [facility] Blood BLOOD SPECIMEN / Unknown Lab Venipuncture / Unknown 12/03/2024 2:58 PM CDT 12/03/2024 3:33 PM T Dimitri Green MD LAB - CHEMISTRY ORDERABLES Fin al Result [facility] [address] [place] [address], [facility] [phone] from Last 3 Months or Most Recently Relevant to Health Maintenance Insurance MANAGED MEDICARE ADV [facility] MANAGED MEDICARE ADV [facility] Advance Directives * Full Code (Latest Code Status on File) Date Activated Date Inactivated Comments 05/28/2018 6:26 PM 06/03/2018 6:32 PM Care Teams Artificial Marble Worker Relationship Specialty Start Date End Date Se Mcqueen MD [address] [place] [id number] PCP - General 06/03/22 [place] [id number] [address] Orthopedic Surgery 03/01/18
--- OUTSIDE RECORDS SUMMARY | 2025-06-11 14:11 | XMS_ITS | Patient Health Record ---
Author Organization [facility] Address [address] [place] [address] SOREN Eckert [address] Care Team Providers Care Market Research Specialist Name Role Phone GREG HUIZAR, EPHRAIM Primary Care Provider CarleeSarwat Melara Unavailable [phone] ALLERGIES Allergen (clinical drug ingredient) Drug/Non Drug Allergy documented on EMR Reaction Allergy Type Onset Date Status Penicillin Unknown Drug Allergy Active RESULTS Component Value Reference Range Notes [employer] Results (Not yet reviewed by provider) Interpretation: Performing Lab:[id number] [place], [address] [address] [facility] [id number] Diamond Kumari MD Notes/Report: Acetyl fentanyl: Fentanyl Negative. Acetyl norfentanyl: Fentanyl Negative. Acr yl fentanyl: Fentanyl Negative. Carfentanil: Fentanyl Negative. Para-fluorofent anyl: Fentanyl Negative. Codeine Quantification negative 50 ng/mL Morphine Quantification positive-[id number] 50 ng/mL Hydrocodone Quantification negative 50 ng/mL Norhydrocodone Quantification negative 50 ng/mL Hydromorphone Quantification negative 50 ng/mL Oxycodone Quantification negative 50 ng/mL Noroxycodone Quantification negative 50 ng/mL Oxymorphone Quantification negative 50 ng/mL Fentanyl Quantification negative 1 ng/mL Norfentanyl Quantification negative 8 ng/mL Methadone Quantification negative 100 ng/mL EDDP (Methadone metabolite) Quantification negative 100 ng/mL Tramadol Quantification negative 100 ng/mL L-xxakmnboz-pezmxhml Quantification negative 100 n g/mL F-Dxzghkcou-Tonzevpk Quantification negative 100 n g/mL Alpha-Hydroxyalprazolam Quantification negative 20 ng/mL 9-Zscpg-Zxakejghff Quantification negative 20 ng/m L Lorazepam Quantification [...] Fen Neg 1 ng/m L Mitragynine (Kratom alkaloid) Quantification negative 1 ng/mL 9-AI-Qimvbkrvhcc (Kratom alk aloid) Quantification negative 1 ng/mL Ethyl Glucuronide Quantification negative 500 ng/m L Ethyl Sulfate Quantification negative 500 ng/mL [employer] Results (Not yet reviewed by provider) Interpretation: Performing Lab:[id number] [place], [id number] [address] [place] [id number] Diamond Kumari MD Notes/Report: Acetyl fentanyl: Fentanyl Negative. Acetyl norfentanyl: Fentanyl Negative. Acr yl fentanyl: Fentanyl Negative. Carfentanil: Fentanyl Negative. Para-fluorofent anyl: Fentanyl Negative. Codeine Quantification negative 50 ng/mL Morphine Quantification positive-[id number] 50 ng/mL Hydrocodone Quantification negative 50 ng/mL Norhydrocodone Quantification negative 50 ng/mL Hydromorphone Quantification positive-50.039 50 ng/mL Oxycodone Quantification negative 50 ng/mL Noroxycodone Quantification negative 50 ng/mL Oxymorphone Quantification negative 50 ng/mL Fentanyl Quantification negative 1 ng/mL Norfentanyl Quantification negative 8 ng/mL Methadone Quantification negative 100 ng/mL EDDP (Methadone metabolite) Quantification negative 100 ng/mL Tramadol Quantification negative 100 ng/mL U-tucdzcnlr-qumhbkyp Quantification negative 100 n g/mL Z-Hmwetmmdi-Uwmvvfjn Quantification negative 100 n g/mL Alpha-Hydroxyalprazolam Quantification negative 20 ng/mL 8-Klegc-Xuzijzesxz Quantification negative 20 ng/m L Lorazepam Quantification [...] Fen Neg 1 ng/m L Mitragynine (Kratom alkaloid) Quantification negative 1 ng/mL 4-GJ-Dlclzpiqqoh (Kratom alk aloid) Quantification negative 1 ng/mL Ethyl Glucuronide Quantification negative 500 ng/m L Ethyl Sulfate Quantification negative 500 ng/mL REASON FOR REFERRAL No Information MEDICATIONS Medication SIG (Take, Route, Frequency, Duration) Notes Start Date End Date Status Ferrous Sulfate 325 (65 Fe) MG 1 tablet Orally Once a day for 30 day(s) Active Simvastatin 20 MG 1 tablet in the evening Orally Once a day for 30 day(s) Active Temazepam 15 MG 1 capsule at bedtime as needed Orally Once a day Active Basaglar KwikPen 100 UNIT/ML as directed Subcutaneous Active Lyrica 75 MG 1 capsule Orally every 8 hours for 30 days 03/14/2025 Active Terbinafine HCl 250 MG TAKE 1 TABLET BY MOUTH EVERY DAY Oral for 30 Active Movantik 25 MG 1 tablet in the morning Orally Once a day for 30 day(s) 06/29/2022 Active Voltaren 1 % 2 grams on each knee Transdermal 3 times a day 05/09/2018 Active Eszopiclone 3 MG 1 tablet immediately before bedtime Oral Once a day Active Lidoderm 5 % 2 patch remove after 12 hours Externally Once a day for 30 days 04/27/2022 Active Cyclobenzaprine HCl 10 MG 1 tab as needed Orally BID for 30 days 01/14/2020 Active Furosemide 20 MG Oral for 90 A ctive Ketorolac Tromethamine 0.5 % INSTILL 1 DROP INTO BOTH EYES 4 TIMES A DAY Ophthalmic for 18 Active Narcan 4 MG/0.1ML 1 actuation in one nostril x1, Nasally 2-3 minutes as needed until the patient is responsive or EMS arrives Active Phenytoin Sodium Extended 100 MG 1 capsule Oral every 12 hrs Active Omeprazole 20 MG 1 capsule 30 minutes before morning meal Oral Once a day Active Metoprolol Succinate ER 100 MG 1 tablet Oral Once a day Active PHENobarbital 97.2 MG 1 tablet Oral Twic e a day Active MS Contin 30 MG 1 tablet Orally ever y 8 hours for 30 days MAY FILL 05/30/25 05/27/2025 Active NovoLOG FlexPen 100 UNIT/ML Subcutaneous for 90 Active Mometasone Furoate 0.1 % 1 application Externally Once a day Active Nystatin-Triamcinolone 245611-1.1 UNIT/GM 1 application Externally Twice a day Active Flector 1.3 % 1 patch Externally Twice a day for 30 days 04/27/2023 Active Medrol 4 MG as directed Orally 01/26/2023 Active Lidocaine 5 % 1 application as needed Externally Three times a day for 30 days 03/31/2021 Active Lidocaine HCl 3 % 1 application as needed Externally Twice a day for 30 days 03/04/2021 Active Lantus SoloStar 100 UNIT/ML Subcutaneous for 108 Active Vitamin D3 125 MCG (5000 UT) TAKE 1 CAPSULE BY MOUTH EVERY DAY Oral for 90 Active HumaLOG KwikPen 100 UNIT/ML as directed Subcutaneous Active SOCIAL HISTORY Tobacco Use: Social History [...] 0 Interpretation Negative Section Notes: 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 he is . He smokes one cigar a day. He denies alcohol or drug abuse. 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 he is . He smokes one cigar a day. He denies alcohol or drug abuse. 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 he is . He smokes one cigar a day. He denies alcohol or drug abuse. 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 he is . He smokes one cigar a day. He denies alcohol or drug abuse. 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 he is . He smokes one cigar a day. He denies alcohol or drug abuse. 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 he is . He smokes one cigar a day. He denies alcohol or drug abuse. 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 he is . He smokes one cigar a day. He denies alcohol or drug abuse. 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 he is . He smokes one cigar a day. He denies alcohol or drug abuse. 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 he is . He smokes one cigar a day. He denies alcohol or drug abuse. 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 he is . He smokes one cigar a day. He denies alcohol or drug abuse. 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 he is . He smokes one cigar a day. He denies alcohol or drug abuse. 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 he is . He smokes one cigar a day. He denies alcohol or drug abuse. 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 he is . He smokes one cigar a day. He denies alcohol or drug abuse. 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 he is . He smokes one cigar a day. He denies alcohol or drug abuse. 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 he is . He smokes one cigar a day. He denies alcohol or drug abuse. 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 he is . He smokes one cigar a day. He denies alcohol or drug abuse. The patient is on disability . he is . He smokes one cigar a day. He denies alcohol or drug abuse. The patient is on disability . he is . He smokes one cigar a day. He denies alcohol or drug abuse. The patient is on disability . he is . He smokes one cigar a day. He denies alcohol or drug abuse. The patient is on disability . he is . He smokes one cigar a day. He denies alcohol or drug abuse. The patient is on disability . he is . He smokes one cigar a day. He denies alcohol or drug abuse. The patient is on disability . he is . He smokes one cigar a day. He denies alcohol or drug abuse. The patient is on disability . he is . He smokes one cigar a day. He denies alcohol or drug abuse. The patient is on disability . he is . He smokes one cigar a day. He denies alcohol or drug abuse. The patient is on disability . he is . He smokes one cigar a day. He denies alcohol or drug abuse. The patient is on disability . he is . He smokes one cigar a day. He denies alcohol or drug abuse. The patient is on disability . he is . He smokes one cigar a day. He denies alcohol or drug abuse. The patient is on disability . he is . He smokes one cigar a day. He denies alcohol or drug abuse. The patient is on disability . He is . He smokes one cigar a day. He denies alcohol or drug abuse. The patient is on disability . He is . He smokes one cigar a day. He denies alcohol or drug abuse. The patient is on disability . He is . He smokes one cigar a day. He denies alcohol or drug abuse. The patient is on disability . He is . He smokes one cigar a day. He denies alcohol or drug abuse. The patient is on disability . He is . He smokes one cigar a day. He denies alcohol or drug abuse. The patient is on disability . He is . He smokes one cigar a day. He denies alcohol or drug abuse. The patient is on disability . He is . He smokes one cigar a day. He denies alcohol or drug abuse. The patient is on disability . He is . He smokes one cigar a day. He denies alcohol or drug abuse. The patient is on disability . He is . He smokes one cigar a day. He denies alcohol or drug abuse. The patient is on disability . He is . He smokes one cigar a day. He denies alcohol or drug abuse. The patient is on disability . He is . He smokes one cigar a day. He denies alcohol or drug abuse. The patient is on disability . He is . He smokes one cigar a day. He denies alcohol or drug abuse. The patient is on disability . He is . He smokes one cigar a day. He denies alcohol or drug abuse. The patient is on disability . He is . He smokes one cigar a day. He denies alcohol or drug abuse. The patient is on disability . He is . He smokes one cigar a day. He denies alcohol or drug abuse. The patient is on disability . He is . He smokes one cigar a day. He denies alcohol or drug abuse. The patient is on disability . He is . He smokes one cigar a day. He denies alcohol or drug abuse. The patient is on disability . He is . He smokes one cigar a day. He denies alcohol or drug abuse. The patient is on disability . He is . He smokes one cigar a day. He denies alcohol or drug abuse. The patient is on disability . He is . He smokes one cigar a day. He denies alcohol or drug abuse. The patient is on disability . He is . He smokes one cigar a day. He denies alcohol or drug abuse. The patient is on disability . He is . He smokes one cigar a day. He denies alcohol or drug abuse. The patient is on disability . He is . He smokes one cigar a day. He denies alcohol or drug abuse. The patient is on disability . He is . He smokes one cigar a day. He denies alcohol or drug abuse. The patient is on disability . He is . He smokes one cigar a day. He denies alcohol or drug abuse. The patient is on disability . He is . He smokes one cigar a day. He denies alcohol or drug abuse. The patient is on disability . He is . He smokes one cigar a day. He denies alcohol or drug abuse. The patient is on disability . He is . He smokes one cigar a day. He denies alcohol or drug abuse. The patient is on disability . He is . He smokes one cigar a day. He denies alcohol or drug abuse. The patient is on disability . He is . He smokes one cigar a day. He denies alcohol or drug abuse. The patient is on disability . He is . He smokes one cigar a day. He denies alcohol or drug abuse. The patient is on disability . He is . He smokes one cigar a day. He denies alcohol or drug abuse. The patient is on disability . He is . He smokes one cigar a day. He denies alcohol or drug abuse. The patient is on disability . He is . He smokes one cigar a day. He denies alcohol or drug abuse. The patient is on disability . He is . He smokes one cigar a day. He denies alcohol or drug abuse. The patient is on disability . He is . He smokes one cigar a day. He denies alcohol or drug abuse. The patient is on disability . He is . He smokes one cigar a day. He denies alcohol or drug abuse. The patient is on disability . He is . He smokes one cigar a day. He denies alcohol or drug abuse. The patient is on disability . He is . He smokes one cigar a day. He denies alcohol or drug abuse. The patient is on disability . He is . He smokes one cigar a day. He denies alcohol or drug abuse. The patient is on disability . He is . He smokes one cigar a day. He denies alcohol or drug abuse. The patient is on disability . He is . He smokes one cigar a day. He denies alcohol or drug abuse. The patient is on disability . He is . He smokes one cigar a day. He denies alcohol or drug abuse. The patient is on disability . He is . He smokes one cigar a day. He denies alcohol or drug abuse. The patient is on disability . He is . He smokes one cigar a day. He denies alcohol or drug abuse. The patient is on disability . He is . He smokes one cigar a day. He denies alcohol or drug abuse. The patient is on disability . He is . He smokes one cigar a day. He denies alcohol or drug abuse. The patient is on disability . He is . He smokes one cigar a day. He denies alcohol or drug abuse. The patient is on disability . He is . He smokes one cigar a day. He denies alcohol or drug abuse. The patient is on disability . He is . He smokes one cigar a day. He denies alcohol or drug abuse. The patient is on disability . He is . He smokes one cigar a day. He denies alcohol or drug abuse. The patient is on disability . He is . He smokes one cigar a day. He denies alcohol or drug abuse. The patient is on disability . He is . He smokes one cigar a day. He denies alcohol or drug abuse. The patient is on disability . He is . He smokes one cigar a day. He denies alcohol or drug abuse. The patient is on disability . He is . He smokes one cigar a day. He denies alcohol or drug abuse. The patient is on disability . He is . He smokes one cigar a day. He denies alcohol or drug abuse. The patient is on disability . He is . He smokes one cigar a day. He denies alcohol or drug abuse. The patient is on disability . He is . He smokes one cigar a day. He denies alcohol or drug abuse. The patient is on disability . He is . He smokes one cigar a day. He denies alcohol or drug abuse. The patient is on disability . He is . He smokes one cigar a day. He denies alcohol or drug abuse. The patient is on disability . He is . He smokes one cigar a day. He denies alcohol or drug abuse. The patient is on disability . He is . He smokes one cigar a day. He denies alcohol or drug abuse. The patient is on disability . He is . He smokes one cigar a day. He denies alcohol or drug abuse. The patient is on disability . He is . He smokes one cigar a day. He denies alcohol or drug abuse. The patient is on disability . He is . He smokes one cigar a day. He denies alcohol or drug abuse. The patient is on disability . He is . He smokes one cigar a day. He denies alcohol or drug abuse. The patient is on disability . He is . He smokes one cigar a day. He denies alcohol or drug abuse. The patient is on disability . He is . He smokes one cigar a day. He denies alcohol or drug abuse. 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) Active confirmed Postherpetic neuralgia (8831874) Problem Epilepsy, unspecified, intractable, without status epilepticus (G40.919) Active confirmed Problem Primary osteoarthritis, right shoulder (M19.011) Active confirmed Localized, primary osteoarthritis of the shoulder region (133154152) Problem Unspecified osteoarthritis, unspecified site (M19.90) Active confirmed Osteoarthritis (666545191) Problem Pain in left hip (M25.552) Active confirmed Pain of left hi p joint (finding) (690446300143733) Problem Pain in left knee (M25.562) Active confirmed Pain of left kn ee joint (finding) (555610175068353) Problem Spinal enthesopathy, site unspecified (M46.00) Active confirmed Spinal enthesopathy (24384993) Problem Spondylosis without myelopathy or radiculopathy, cervical region (M47.812) Active confirmed Cervical spondylosis without myelopathy (973928844) Problem Spondylosis without myelopathy or radiculopathy, cervicothoracic region (M47.813) Active confirmed Cervical spondylosis without myelopathy (806192846) Problem Spondylosis without myelopathy or radiculopathy, lumbar region (M47.816) Active confirmed Lumbosacral spondylosis without myelopathy (34102117) Problem Spinal stenosis, cervical region (M48.02) Active confirmed Spinal stenosis in cervical region (93460352) Problem Intervertebral disc disorders with radiculopathy, lumbar region (M51.16) Active confirmed Radiculopathy d ue to lumbar intervertebral disc disorder (505351301474661) Problem Other intervertebral disc degeneration, lumbosacral region (M51.37) Active confirmed Degeneration of lumbosacral intervertebral disc (14739769) Problem Other specified dorsopathies, cervical region (M53.82) Active confirmed Disorder of cervical spine (407138369) Problem Radiculopathy, cervical region (M54.12) Active confirmed Cervical radiculopathy (36863039) Problem Radiculopathy, cervicothoracic region (M54.13) Active confirmed Cervical radiculopathy (04136941) Problem Radiculopathy, lumbar region (M54.16) Active confirmed Lumbar radiculopathy (609982369) Problem Radiculopathy, lumbosacral region (M54.17) Active confirmed Lumbosacral radiculopathy (9617106) Problem Postlaminectomy syndrome, not elsewhere classified (M96.1) Active confirmed Post-lami nectomy syndrome (67965441) Problem Osseous stenosis of neural canal of lumbar region (M99.33) Active confirmed Spinal stenosis of lumbar region (57566167) Problem 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) Active confirmed Connectiv e tissue and disc stenosis of intervertebral foramina (466607647) 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) Active confirmed Long-term curre nt use of anticoagulant (824843551) Problem [facility] (current) use of opiate analgesic (Z79.891) Active confirmed High risk drug monitoring status (988504643) Problem Drug induced constipation (K59.03) Active confirmed Drug-induced constipation (79048727) Problem Myalgia, other site (M79.18) Active confirmed Muscle pain (29924453) VITAL SIGNS Heart Rate 78 /min 05/27/2025 Respiratory Rate 16 /min 05/27/2025 Blood pressure diastolic 90 mm Hg 05/27/2025 Height 66 in 05/27/2025 Blood pressure systolic 150 mm Hg 05/27/2025 Weight 127 lbs 05/27/2025 BMI 20.50 kg/m2 05/27/2025 Encounters Encounter Location Date Provider Diagnosis [facility] [address] [place] [address] 07/02/2024 Sarwat Perez Radiculopathy, lumbosacral region M54.17 ; Radiculopathy, cervical region M54.12 ; Radiculopathy, lumbar region M54.16 ; Postlaminectomy syndrome, not elsewhere classified M96.1 ; Spondylosis without myelopathy or radiculopathy, cervical 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 ; Intervertebral disc disorders with radiculopathy, lumbar region M51.16 ; Other intervertebral disc degeneration, lumbosacral region M51.37 ; Spinal stenosis, cervical region M48.02 ; 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16 ; Other intervertebral disc degeneration, lumbosacral region M51.37 ; Spinal stenosis, cervical region M48.02 ; [facility] (current) use of opiate analgesic Z79.891 ; 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 ; Primary osteoarthritis, right shoulder M19.011 ; Drug induced constipation K59.03 and Chest pain, unspecified R07.9 [facility] [address] [place] [phone] 08/28/2024 Sarwat Stynowick Radiculopathy, lumbosacral region M54.17 ; Radiculopathy, cervical region M54.12 ; Radiculopathy, lumbar region M54.16 ; Postlaminectomy syndrome, not elsewhere classified M96.1 ; Spondylosis without myelopathy or radiculopathy, cervical 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 ; Intervertebral disc disorders with radiculopathy, lumbar region M51.16 ; Other intervertebral disc degeneration, lumbosacral region M51.37 ; Spinal stenosis, cervical region M48.02 ; [facility] (current) use of opiate analgesic Z79.891 ; 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 ; Primary osteoarthritis, right shoulder M19.011 ; Drug induced constipation K59.03 and Chest pain, unspecified R07.9 [facility] [address] [place] [phone] 09/26/2024 Sarwat Stynowick Radiculopathy, lumbosacral region M54.17 ; Radiculopathy, cervical region M54.12 ; Radiculopathy, lumbar region M54.16 ; Postlaminectomy syndrome, not elsewhere classified M96.1 ; Spondylosis without myelopathy or radiculopathy, cervical 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 ; Intervertebral disc disorders with radiculopathy, lumbar region M51.16 ; Other intervertebral disc degeneration, lumbosacral region M51.37 ; Spinal stenosis, cervical region M48.02 ; [facility] (current) use of opiate analgesic Z79.891 ; [facility] (current) use of anticoagulants Z79.01 ; Primary osteoarthritis, right shoulder M19.011 ; Drug induced constipation K59.03 and Chest pain, unspecified R07.9 [facility] [address] [place] [phone] 10/08/2024 Sarwat Stynowick Radiculopathy, lumbosacral region M54.17 ; Radiculopathy, cervical region M54.12 ; Radiculopathy, lumbar region M54.16 ; Postlaminectomy syndrome, not elsewhere classified M96.1 ; Spondylosis without myelopathy or radiculopathy, cervical 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 ; Intervertebral disc disorders with radiculopathy, lumbar region M51.16 ; Other intervertebral disc degeneration, lumbosacral region M51.37 ; Spinal stenosis, cervical region M48.02 ; [facility] (current) use of opiate analgesic Z79.891 ; [facility] (current) use of anticoagulants Z79.01 ; Primary osteoarthritis, right shoulder M19.011 ; Drug induced constipation K59.03 and Chest pain, unspecified R07.9 [facility] [address] [place] [phone] 11/12/2024 Sarwat Stynowick Radiculopathy, lumbosacral region M54.17 ; Radiculopathy, cervical region M54.12 ; Radiculopathy, lumbar region M54.16 ; Postlaminectomy syndrome, not elsewhere classified M96.1 ; Spondylosis without myelopathy or radiculopathy, cervical 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 ; Intervertebral disc disorders with radiculopathy, lumbar region M51.16 ; Other intervertebral disc degeneration, lumbosacral region M51.37 ; Spinal stenosis, cervical region M48.02 ; 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16 ; Other intervertebral disc degeneration, lumbosacral region M51.37 ; Spinal stenosis, cervical region M48.02 ; 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 ; [facility] (current) use of anticoagulants Z79.01 ; Primary osteoarthritis, right shoulder M19.011 ; Drug induced constipation K59.03 and Chest pain, unspecified R07.9 [facility] [address] [place] [phone] 12/13/2024 Sarwat Stynowick Radiculopathy, lumba r region M54.16 ; Radiculopathy, lumbosacral region M54.17 and 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 [facility] [address] [place] [phone] 12/16/2024 Sarwat Stynowick Radiculopathy, lumbosacral region M54.17 [facility] [address] [place] [phone] 01/02/2025 Sarwat Stynowick Radiculopathy, lumbosacral region M54.17 ; Radiculopathy, cervical region M54.12 ; Radiculopathy, lumbar region M54.16 ; Postlaminectomy syndrome, not elsewhere classified M96.1 ; Spondylosis without myelopathy or radiculopathy, cervical 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 ; Intervertebral disc disorders with radiculopathy, lumbar region M51.16 ; Other intervertebral disc degeneration, lumbosacral region M51.37 ; Spinal stenosis, cervical region M48.02 ; 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 ; 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 ; Primary osteoarthritis, right shoulder M19.011 ; Drug induced constipation K59.03 and Chest pain, unspecified R07.9 [facility] [address] [place] [phone] 01/14/2025 Sarwat Stynowick Radiculopathy, lumbosacral region M54.17 [facility] [address] [place] [phone] 01/29/2025 Sarwat Stynowick Radiculopathy, lumbosacral region M54.17 [facility] [address] [place] [phone] 02/12/2025 Sarwat Stynowick Radiculopathy, lumbosacral region M54.17 ; Radiculopathy, cervical region M54.12 ; Radiculopathy, lumbar region M54.16 ; Postlaminectomy syndrome, not elsewhere classified M96.1 ; Spondylosis without myelopathy or radiculopathy, cervical 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 ; Intervertebral disc disorders with radiculopathy, lumbar region M51.16 ; Other intervertebral disc degeneration, lumbosacral region M51.37 ; Spinal stenosis, cervical region M48.02 ; 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 ; 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 ; Primary osteoarthritis, right shoulder M19.011 ; Drug induced constipation K59.03 and Chest pain, unspecified R07.9 [facility] [address] [place] [phone] 02/25/2025 Sarwat Stynowick Radiculopathy, lumbosacral region M54.17 ; Radiculopathy, cervical region M54.12 ; Radiculopathy, lumbar region M54.16 ; Postlaminectomy syndrome, not elsewhere classified M96.1 ; Spondylosis without myelopathy or radiculopathy, cervical 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 ; Intervertebral disc disorders with radiculopathy, lumbar region M51.16 ; Other intervertebral disc degeneration, lumbosacral region M51.37 ; Spinal stenosis, cervical region M48.02 ; 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 ; 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 ; Primary osteoarthritis, right shoulder M19.011 ; Drug induced constipation K59.03 and Chest pain, unspecified R07.9 [facility] [address] [facility] [place] [phone] 02/26/2025 Sarwat Stynowick Radiculopathy, cervical region M54.12 [facility] [address] [place] [phone] 03/14/2025 Sarwat Stynowick Radiculopathy, cervical region M54.12 [facility] [address] [place] [phone] 03/26/2025 Sarwat Stynowick Radiculopathy, lumbosacral region M54.17 ; Radiculopathy, cervical region M54.12 ; Radiculopathy, lumbar region M54.16 ; Postlaminectomy syndrome, not elsewhere classified M96.1 ; Spondylosis without myelopathy or radiculopathy, cervical 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 ; Intervertebral disc disorders with radiculopathy, lumbar region M51.16 ; Other intervertebral disc degeneration, lumbosacral region M51.37 ; Spinal stenosis, cervical region M48.02 ; [facility] (current) use of opiate analgesic Z79.891 ; 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 ; Primary osteoarthritis, right shoulder M19.011 ; Drug induced constipation K59.03 and Chest pain, unspecified R07.9 [facility] [address] [facility] [place] [phone] 04/09/2025 Sarwat Stynowick Radiculopathy, lumbosacral region M54.17 [facility] [address] [facility] [place] [address] 04/23/2025 Sarwat Stynowick Radiculopathy, lumbosacral region M54.17 ; Radiculopathy, cervical region M54.12 ; Radiculopathy, lumbar region M54.16 ; Postlaminectomy syndrome, not elsewhere classified M96.1 ; Spondylosis without myelopathy or radiculopathy, cervical 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 ; Intervertebral disc disorders with radiculopathy, lumbar region M51.16 ; Other intervertebral disc degeneration, lumbosacral region M51.37 ; Spinal stenosis, cervical region M48.02 ; 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 ; [facility] (current) use of anticoagulants Z79.01 ; Primary osteoarthritis, right shoulder M19.011 ; Drug induced constipation K59.03 and Chest pain, unspecified R07.9 [facility] [address] [place] [phone] 05/05/2025 Sarwat Stynowick Radiculopathy, cervical region M54.12 ; Radiculopathy, cervicothoracic region M54.13 and Spinal stenosis, cervical region M48.02 [facility] [address] [place] [phone] 05/23/2025 Sarwat Stynowick Radiculopathy, cervical region M54.12 [facility] [address] [place] [address] 05/27/2025 Sarwat Stynowick Radiculopathy, cervical region M54.12 ; Postlaminectomy syndrome, not elsewhere classified M96.1 ; Radiculopathy, cervicothoracic region M54.13 ; Spinal stenosis, cervical region M48.02 ; Radiculopathy, lumbar region M54.16 ; [facility] (current) use of opiate analgesic Z79.891 and Primary osteoarthritis, right shoulder M19.011 ASSESSMENTS Encounter Date Diagnosis Assessment Notes Treatment Notes Treatment Clinical Notes Section Notes 07/02/2024 Radiculopathy, lumbosacral region (ICD-10 - M54.17) 07/30/2024 Radiculopathy, lumbosacral region (ICD-10 - M54.17) 08/28/2024 Radiculopathy, lumbosacral region (ICD-10 - M54.17) 09/26/2024 Radiculopathy, lumbosacral region (ICD-10 - M54.17) 10/08/2024 Radiculopathy, lumbosacral region (ICD-10 - M54.17) 11/12/2024 Radiculopathy, cervical region (ICD-10 - M54.12) The side effects of opioid analgesics including [...] to fully comply with the above. The [place] PDMP were reviewed and were appropriate 12/13/2024 Radiculopathy, lumbosacral region (ICD-10 - M54.17) 01/02/2025 Radiculopathy, cervical region (ICD-10 - M54.12) [...] to proceeding at this time. 01/02/2025 Radiculopathy, lumbosacral region (ICD-10 - M54.17) [...] to fully comply with the above. The [facility] PDMP were reviewed and were appropriate 12/16/2024 Radiculopathy, lumbosacral region (ICD-10 - M54.17) 02/12/2025 Radiculopathy, lumbosacral region (ICD-10 - M54.17) The [...] to fully comply with the above. The [place] PD[place] were reviewed and were appropriate 01/14/2025 Radiculopathy, lumbosacral region (ICD-10 - M54.17) 01/29/2025 Radiculopathy, lumbosacral region (ICD-10 - M54.17) 02/25/2025 Radiculopathy, lumbosacral region (ICD-10 - M54.17) 05/27/2025 Radiculopathy, cervical region (ICD-10 - M54.12) 03/26/2025 Radiculopathy, lumbosacral region (ICD-10 - M54.17) 04/09/2025 Radiculopathy, lumbosacral region (ICD-10 - M54.17) 04/23/2025 Radiculopathy, lumbosacral region (ICD-10 - M54.17) 02/26/2025 Radiculopathy, cervical region (ICD-10 - M54.12) 03/14/2025 Radiculopathy, cervical region (ICD-10 - M54.12) 05/23/2025 Radiculopathy, cervical region (ICD-10 - M54.12) 05/05/2025 Radiculopathy, cervicothoracic region (ICD-10 - M54.13) 05/05/2025 Radiculopathy, cervical region (ICD-10 - M54.12) 05/27/2025 [...] to fully comply with the above. The [place] PD[place] were reviewed and were appropriate 11/12/2024 Radiculopathy, lumbosacral region (ICD-10 - M54.17) Schedule a bilateral L5-S1 transforaminal epidural steroid injection. The risks of this procedure including pain, [...] is agreeable to proceeding at this time. 12/13/2024 Radiculopathy, lumbar region (ICD-10 - M54.16) 12/04/2024 Radiculopathy, cervical region (ICD-10 - M54.12) 12/04/2024 Radiculopathy, lumbosacral region (ICD-10 - M54.17) Schedule a bilateral L5-S1 transforaminal epidural steroid injection. The risks of this procedure including pain, [...] agreeable to proceeding at this time. The side effects of opioid analgesics including [...] to fully comply with the above. The [place] PD[place] were reviewed and were appropriate 04/23/2025 Radiculopathy, cervical region (ICD-10 - M54.12) [...] 04/23/2025 Radiculopathy, lumbar region (ICD-10 - M54.16) 05/27/2025 Radiculopathy, cervicothoracic region (ICD-10 - M54.13) 05/05/2025 Spinal stenosis, cervical region (ICD-10 - M48.02) 11/12/2024 Radiculopathy, lumbar region (ICD-10 - M54.16) 10/08/2024 Radiculopathy, lumbar region (ICD-10 - M54.16) 10/08/2024 Radiculopathy, cervical region (ICD-10 - M54.12) The side effects of opioid analgesics including [...] to fully comply with the above. The [place] PD[place] were reviewed and were appropriate 09/26/2024 Radiculopathy, cervical region (ICD-10 - M54.12) The side effects of opioid analgesics including [...] to fully comply with the above. The [facility] PDMP were reviewed and were appropriate 08/28/2024 Radiculopathy, lumbar region (ICD-10 - M54.16) 08/28/2024 Radiculopathy, cervical region (ICD-10 - M54.12) The side effects of opioid analgesics including [...] to fully comply with the above. The [facility] PDMP were reviewed and were appropriate 07/30/2024 Radiculopathy, lumbar region (ICD-10 - M54.16) 07/30/2024 Radiculopathy, cervical region (ICD-10 - M54.12) The side effects of opioid analgesics including [...] to fully comply with the above. The [facility] PDMP were reviewed and were appropriate 07/02/2024 Radiculopathy, lumbar region (ICD-10 - M54.16) 07/02/2024 Radiculopathy, cervical region (ICD-10 - M54.12) The side effects of opioid analgesics including [...] to fully comply with the above. 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 The [place] PD[place] were reviewed and were appropriate 02/25/2025 Radiculopathy, lumbar region (ICD-10 - M54.16) 02/25/2025 Radiculopathy, cervical region (ICD-10 - M54.12) The side effects of opioid analgesics including [...] to fully comply with the above. The [place] PD[place] were reviewed and were appropriate 10/08/2024 Postlaminectomy syndrome, not elsewhere classified (ICD-10 - M96.1) 03/26/2025 Postlaminectomy syndrome, not elsewhere classified (ICD-10 - M96.1) 09/26/2024 Radiculopathy, lumbar region (ICD-10 - M54.16) 08/28/2024 Postlaminectomy syndrome, not elsewhere classified (ICD-10 - M96.1) 02/12/2025 Radiculopathy, lumbar region (ICD-10 - M54.16) 04/23/2025 [...] to fully comply with the above. The [place] PD[place] were reviewed and were appropriate 07/30/2024 Postlaminectomy syndrome, not elsewhere classified (ICD-10 - M96.1) 05/27/2025 Spinal stenosis, cervical region (ICD-10 - M48.02) 07/02/2024 Postlaminectomy syndrome, not elsewhere classified (ICD-10 - M96.1) 01/02/2025 Postlaminectomy syndrome, not elsewhere classified (ICD-10 - M96.1) 11/12/2024 Postlaminectomy syndrome, not elsewhere classified (ICD-10 - M96.1) 02/25/2025 Postlaminectomy syndrome, not elsewhere classified (ICD-10 - M96.1) 12/04/2024 Postlaminectomy syndrome, not elsewhere classified (ICD-10 - M96.1) 01/02/2025 Spondylosis without myelopathy or radiculopathy, cervical region (ICD-10 - M47.812) 02/12/2025 Postlaminectomy syndrome, not elsewhere classified (ICD-10 - M96.1) 12/04/2024 Spondylosis without myelopathy or radiculopathy, cervical region (ICD-10 - M47.812) 11/12/2024 Spondylosis without myelopathy or radiculopathy, cervical region (ICD-10 - M47.812) 10/08/2024 Spondylosis without myelopathy or radiculopathy, cervical region (ICD-10 - M47.812) 09/26/2024 Postlaminectomy syndrome, not elsewhere classified (ICD-10 - M96.1) 08/28/2024 Spondylosis without myelopathy or radiculopathy, cervical region (ICD-10 - M47.812) 07/30/2024 Spondylosis without myelopathy or radiculopathy, cervical region (ICD-10 - M47.812) 07/02/2024 Spondylosis without myelopathy or radiculopathy, cervical region (ICD-10 - M47.812) 04/23/2025 Spondylosis without myelopathy or radiculopathy, cervical region (ICD-10 - M47.812) 05/27/2025 Radiculopathy, lumbar region (ICD-10 - M54.16) 03/26/2025 Spondylosis without myelopathy or radiculopathy, cervical region (ICD-10 - M47.812) 02/25/2025 Spondylosis without myelopathy or radiculopathy, cervical region (ICD-10 - M47.812) 03/26/2025 Intervertebral disc disorders with radiculopathy, lumbar region (ICD-10 - M51.16) 11/12/2024 Intervertebral disc disorders with radiculopathy, lumbar region (ICD-10 - M51.16) 12/04/2024 Intervertebral disc disorders with radiculopathy, lumbar region (ICD-10 - M51.16) 10/08/2024 Intervertebral disc disorders with radiculopathy, lumbar region (ICD-10 - M51.16) 04/23/2025 Intervertebral disc disorders with radiculopathy, lumbar region (ICD-10 - M51.16) 09/26/2024 Spondylosis without myelopathy or radiculopathy, cervical region (ICD-10 - M47.812) 08/28/2024 Intervertebral disc disorders with radiculopathy, lumbar region (ICD-10 - M51.16) 07/30/2024 Intervertebral disc disorders with radiculopathy, lumbar region (ICD-10 - M51.16) 07/02/2024 Intervertebral disc disorders with radiculopathy, lumbar region (ICD-10 - M51.16) 05/27/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 02/12/2025 Spondylosis without myelopathy or radiculopathy, cervical region (ICD-10 - M47.812) 01/02/2025 Intervertebral disc disorders with radiculopathy, lumbar region (ICD-10 - M51.16) 02/25/2025 Intervertebral disc disorders with radiculopathy, lumbar region (ICD-10 - M51.16) 07/02/2024 Other intervertebral disc degeneration, lumbosacral region (ICD-10 - M51.37) 01/02/2025 Other intervertebral disc degeneration, lumbosacral region (ICD-10 - M51.37) 09/26/2024 Intervertebral disc disorders with radiculopathy, lumbar region (ICD-10 - M51.16) 07/30/2024 Other intervertebral disc degeneration, lumbosacral region (ICD-10 - M51.37) 04/23/2025 Other intervertebral disc degeneration, lumbosacral region (ICD-10 - M51.37) 02/12/2025 Intervertebral disc disorders with radiculopathy, lumbar region (ICD-10 - M51.16) 02/25/2025 Other intervertebral disc degeneration, lumbosacral region (ICD-10 - M51.37) 05/27/2025 Primary osteoarthritis, right shoulder (ICD-10 - M19.011) 08/28/2024 Other intervertebral disc degeneration, lumbosacral region (ICD-10 - M51.37) 12/04/2024 Other intervertebral disc degeneration, lumbosacral region (ICD-10 - M51.37) 11/12/2024 Other intervertebral disc degeneration, lumbosacral region (ICD-10 - M51.37) 03/26/2025 Other intervertebral disc degeneration, lumbosacral region (ICD-10 - M51.37) 10/08/2024 Other intervertebral disc degeneration, lumbosacral region (ICD-10 - M51.37) 07/02/2024 Spinal stenosis, cervical region (ICD-10 - M48.02) 02/12/2025 Other intervertebral disc degeneration, lumbosacral region (ICD-10 - M51.37) 02/25/2025 Spinal stenosis, cervical region (ICD-10 - M48.02) 07/30/2024 Spinal stenosis, cervical region (ICD-10 - M48.02) 03/26/2025 Spinal stenosis, cervical region (ICD-10 - M48.02) 12/04/2024 Spinal stenosis, cervical region (ICD-10 - M48.02) 11/12/2024 Spinal stenosis, cervical region (ICD-10 - M48.02) 10/08/2024 Spinal stenosis, cervical region (ICD-10 - M48.02) 01/02/2025 Spinal stenosis, cervical region (ICD-10 - M48.02) 04/23/2025 Spinal stenosis, cervical region (ICD-10 - M48.02) 09/26/2024 Other intervertebral disc degeneration, lumbosacral region (ICD-10 - M51.37) 08/28/2024 Spinal stenosis, cervical region (ICD-10 - M48.02) 07/02/2024 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 10/08/2024 [facility] (current) use of opiate analgesic (ICD-10 - Z79.891) The patient submitted a urine sample for drug screening to ensure compliance. 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 I made the patient aware that they will be at an increased risk for a thromboembolic event during this time and they are willing to accept this risk. The patient was instructed to notify their primary care physician and/or supervisor coin machine to obtain clearance prior to discontinuing this medication. 12/04/2024 [facility] (current) use of anticoagulants (ICD-10 - Z79.01) The patient was instructed to discontinue aspirin for 6 days prior to the procedure. I made the patient aware that they will be at an increased risk for a thromboembolic event during this time and they are willing to accept this risk. The patient was instructed to notify their primary care physician and/or supervisor coin machine to obtain clearance prior to discontinuing this medication. 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 I made the patient aware that they will be at an increased risk for a thromboembolic event during this time and they are willing to accept this risk. The patient was instructed to notify their primary care physician and/or supervisor coin machine to obtain clearance prior to discontinuing this medication. 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 I made the patient aware that they will be at an increased risk for a thromboembolic event during this time and they are willing to accept this risk. The patient was instructed to notify their primary care physician and/or supervisor coin machine to obtain clearance prior to discontinuing this medication. 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) 08/28/2024 Primary osteoarthritis, right shoulder (ICD-10 - M19.011) 03/26/2025 Primary osteoarthritis, right shoulder (ICD-10 - M19.011) 07/30/2024 Primary osteoarthritis, right shoulder (ICD-10 - M19.011) 01/02/2025 Primary osteoarthritis, right shoulder (ICD-10 - M19.011) 04/23/2025 Primary osteoarthritis, right shoulder (ICD-10 - M19.011) 12/04/2024 Primary osteoarthritis, right shoulder (ICD-10 - M19.011) 07/02/2024 Primary osteoarthritis, right shoulder (ICD-10 - M19.011) 11/12/2024 Primary osteoarthritis, right shoulder (ICD-10 - M19.011) 10/08/2024 Primary osteoarthritis, right shoulder (ICD-10 - M19.011) 09/26/2024 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) 03/26/2025 Drug induced constipation (ICD-10 - K59.03) 07/02/2024 Drug induced constipation (ICD-10 - K59.03) 04/23/2025 Drug induced constipation (ICD-10 - K59.03) 02/25/2025 Drug induced constipation (ICD-10 - K59.03) 02/12/2025 Primary osteoarthritis, right shoulder (ICD-10 - M19.011) 07/30/2024 Drug induced constipation (ICD-10 - K59.03) 01/02/2025 Drug induced constipation (ICD-10 - K59.03) 10/08/2024 Drug induced constipation (ICD-10 - K59.03) 12/04/2024 Drug induced constipation (ICD-10 - K59.03) 08/28/2024 Drug induced constipation (ICD-10 - K59.03) 11/12/2024 Drug induced constipation (ICD-10 - K59.03) 09/26/2024 Primary osteoarthritis, right shoulder (ICD-10 - M19.011) 09/26/2024 Drug induced constipation (ICD-10 - K59.03) 10/08/2024 Chest pain, unspecified (ICD-10 - R07.9) 04/23/2025 Chest pain, unspecified (ICD-10 - R07.9) 11/12/2024 Chest pain, unspecified (ICD-10 - R07.9) 08/28/2024 Chest pain, unspecified (ICD-10 - R07.9) 12/04/2024 Chest pain, unspecified (ICD-10 - R07.9) 03/26/2025 Chest pain, unspecified (ICD-10 - R07.9) 07/02/2024 Chest pain, unspecified (ICD-10 - R07.9) 01/02/2025 Chest pain, unspecified (ICD-10 - R07.9) 02/25/2025 Chest pain, unspecified (ICD-10 - R07.9) 07/30/2024 Chest pain, unspecified (ICD-10 - R07.9) 02/12/2025 Drug induced constipation (ICD-10 - K59.03) 09/26/2024 Chest pain, unspecified (ICD-10 - R07.9) 02/12/2025 Chest pain, unspecified (ICD-10 - R07.9) 07/02/2024 Other The above-named patient was evaluated in [...] with Patient and Medical Decision Makin minutes 07/30/2024 Other The above-named patient was evaluated in [...] with Patient and Medical Decision Makin minutes 08/28/2024 Other The above-named patient was evaluated in [...] with Patient and Medical Decision Makin minutes 10/08/2024 Other The above-named patient was evaluated in [...] with Patient and Medical Decision Makin minutes 11/12/2024 Other The above-named patient was evaluated in [...] with Patient and Medical Decision Makin minutes 12/04/2024 Other The above-named patient was evaluated in [...] with Patient and Medical Decision Makin minutes 01/02/2025 Other The above-named patient was evaluated [...] with Patient and Medical Decision Makin minutes 02/25/2025 Other The above-named patient was evaluated in [...] with Patient and Medical Decision Makin minutes 03/26/2025 Other The above-named patient was evaluated in [...] with Patient and Medical Decision Makin minutes 04/23/2025 Other The above-named patient was evaluated [...] with Patient and Medical Decision Makin minutes 05/27/2025 Other The above-named patient was evaluated [...] Medical Decision Makin minutes PLAN OF TREATMENT Pending Test Test Name Order Date MRI : Hip, left 07/27/2021 XRAY right shoulder 05/15/2020 XRAY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
--- OUTSIDE RECORDS SUMMARY | 2025-06-11 14:12 | XMS_ITS | Encounter Summary ---
Author Organization [facility] Health Address [address] [place] [address] Care Team Providers Care Jalousie Installer Name Role Phone Anmol Gomez MD Primary Care Provider [phone] Sarwat Phillips MD Unavailable [phone] Se Mcqueen MD Primary Care Provider [phone] Anmol Gomez MD Primary Care Provider [phone] Se Mcqueen MD Primary Care Provider [phone] Encounter Details Date Type Department Care Team (Late st Contact Info) Description 12/27/2019 Telephone [facility], Diabetes [facility] Met[facility] [address] [place] [address] Dimitri Green MD [facility] [place] [address] Social History Tobacco Use Types Packs/Day Years Used Date Smoking Tobacco: Some Days Cigars Smokeless Tobacco: Never Alcohol Use Standard Drinks/Week Comments No 0 (1 standard drink = 0.6 oz pur e alcohol) Sex and Gender Information Value Date Recorded Sex Assigned at Not on file Legal Sex Male 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 Patient Call Back number: [phone] documented in this encounter Plan of Treatment Upcoming Encounters Date Type Department Care Team (Late st Contact Info) Description 12/01/2025 1:40 PM CDT Office Visit [facility] - Endocrinology [address] [place] [address], [place] [address] Dimitri Green MD [address] [place] [address] [place] [address] documented as of this encounter Visit Diagnoses Not on filedocumented in this encounter Care Teams Jalousie Installer Relationship Specialty Start Date End Date Anmol Gomez MD [address] [place] [id number] PCP - General Family Medicine 10/02/15 05/27/21 Se Mcqueen MD [address] [place] [id number] PCP - General Family Medicine 05/28/21 05/28/21 Anmol Gomez MD [address] [place] [id number] PCP - General 05/31/21 06/02/22 Se Mcqueen MD [address] [place] [id number] PCP - General 06/03/22 [place] [id number] [address] Orthopedic Surgery 03/01/18 documented as of this encounter
[2025-06-11 15:10] LABS: Hematocrit 33.1 % (42.0-52.0); Hemoglobin 11.6 g/dL (14.0-18.0); Mean Corpuscular HGB Conc 35.0 g/dl (32-36); Mean Corpuscular Hemoglobin 30.5 pg (26-34); Mean Corpuscular Volume 87.1 fl (80-100); Platelet Count Result 127 k/mm3 (150-375); Red Blood Count 3.80 M/mm3 (4.6-6.20); White Blood Count 3.4 K/mm3 (4.5-10.0)
[2025-06-11 15:33] LABS: Alanine Aminotransferase 18 U/L (6-50); Albumin Level 4.2 g/dL (3.5-5.1); Alkaline Phosphatase 108 U/L (38-126); Anion Gap 5 mmol/L (4-12); Aspartate Amino Transferase 33 U/L (17-59); Bilirubin,Total 0.6 mg/dL (0.2-1.3); Blood Urea Nitrogen 18 mg/dL (9-20); Calcium 8.6 mg/dL (8.4-10.2); Carbon Dioxide 32 mmol/L (22-30); Chloride 92 mmol/L (98-107); Cholesterol 135 mg/dL (0-200); Estimated Glomerular Filt Rate > 60; Glucose 196 mg/dL (65-110); HDL Direct 52 mg/dL; Magnesium 1.9 mg/dL (1.6-2.3); Potassium 4.9 mmol/L (3.4-5.0); Sodium 129 mmol/L (137-145); Total Protein 7.6 g/dL (6.3-8.2); Triglycerides 90 mg/dL (<150)
[2025-06-11 15:40] LABS: Iron 161 ug/dL (49-181)
[2025-06-11 15:49] LABS: Percent Iron Saturation 77 % (20-50)
[2025-06-11 15:51] LABS: MALB Creatinine Ratio < 5.9 mg/g (0-30)
[2025-06-11 16:06] LABS: Thyroid Stimulating Hormone 1.890 uIU/mL (0.465-4.680)
[2025-06-11 16:14] LABS: Prostate Specific Antigen 1.7 ng/mL (< OR = 4.0)
[2025-06-11 16:23] LABS: Ferritin 479.00 ng/mL (11.1-264)
[2025-06-11 16:33] LABS: Vitamin B12 712.0 pg/mL (239-931)
== END 2025-06-11 14:06 | disposition home or self-care (01) ==
PROVIDERS: PCP Family Medicine
DX: R25.2 Cramp and spasm (principal); D64.9 Anemia, unspecified; E11.319 Type 2 diabetes mellitus with unspecified diabetic retinopathy without macular edema; Z79.4 Long term (current) use of insulin; E55.9 Vitamin D deficiency, unspecified; R79.89 Other specified abnormal findings of blood chemistry; R56.1 Post traumatic seizures; Z12.5 Encounter for screening for malignant neoplasm of prostate; G60.9 Hereditary and idiopathic neuropathy, unspecified; G62.9 Polyneuropathy, unspecified; E78.00 Pure hypercholesterolemia, unspecified
CPT/HCPCS: 36415; 80053; 80061; 80184; 80185; 82043; 82306; 82607; 82728; 83540; 83550; 83735; 84153; 84443; 85027; G0103